=== PATIENT | male | born 1965 | race Asian ===

== ENCOUNTER 2020-08-23 08:03 | Outpatient (REF) | payer OTHER, SELFPAY ==
--- NOTE | 2020-08-23 | US_ITS ---
EXAMINATION: US COMPLETE ABDOMEN WITH LIVER ELASTOGRAPHY CLINICAL INFORMATION: Epigastric pain. COMPARISON: None. TECHNIQUE: Real-time imaging of the abdominal viscera. Noninvasive ultrasound liver fibrosis assessment is performed using Markie ElastPQ point quantification shear wave elastography (pSWE) with a 5 MHz transducer. Multiple elastography samples are obtained. FINDINGS: PANCREAS: The visualized pancreatic head and body are normal in appearance. The remainder of the pancreas is obscured from visualization by the overlying bowel gas. ABDOMINAL AORTA: The proximal, middle, and distal aortic segments are normal in caliber. Atheromatous changes are evident. INFERIOR VENA CAVA: Visualized portions are normal. LIVER: Increased hepatic echogenicity is noted diffusely, most consistent with steatosis. Liver is normal in size and contour. No focal lesion or intrahepatic biliary duct dilatation. The right lobe measures 14.6 in length. The left lobe measures 10.5 in length. Normal hepatopedal blood flow is noted. Shear wave elastography provides a median stiffness of 1.79 m/s (reference: normal median stiffness is 0.81 - 1.22 m/s). The IQR/median stiffness to assess sampling precision is 0.35 (reference: optimal IQR/median stiffness is under 0.3). GALLBLADDER: Normal. The gallbladder is physiologically distended without evidence of stones, sludge, polyps, wall thickening or pericholecystic fluid. COMMON BILE DUCT: Normal in caliber measuring 0.48 cm in diameter. RIGHT KIDNEY: Normal. No hydronephrosis. No renal calculi or focal parenchymal lesions. The kidney measures 11.5 cm in maximum dimension. LEFT KIDNEY: Normal. No hydronephrosis. No renal calculi or focal parenchymal lesions. The kidney measures 10.9 cm in maximum dimension. SPLEEN: Normal. The spleen measures 9.5 cm in maximum dimension. FREE FLUID: None. IMPRESSION: 1. Increased hepatic echogenicity, most consistent with steatosis. 2. Elastography: Although the liver elastography measurements are consistent with a moderate risk for clinically significant liver fibrosis (METAVIR Stage F2-F3), there is statistical variability of the sampling which decreases accuracy.
== END 2020-08-23 08:04 | disposition home or self-care (01) ==
LOC: HO.US 08:03
PROVIDERS: Visit Provider Internal Medicine Gastroenterology
DX: R10.13 Epigastric pain (principal)
CPT/HCPCS: 76705; 76981

== ENCOUNTER → 2020-09-13 14:18 | Outpatient (BNVA) | payer OTHER, SELFPAY | PROVIDERS: Visit Provider Urology | DX: E29.1 Testicular hypofunction (principal); N46.9 Male infertility, unspecified; N52.01 Erectile dysfunction due to arterial insufficiency; Z71.89 Other specified counseling | CPT/HCPCS: 99212 ==

== ENCOUNTER → 2020-11-01 14:49 | Outpatient (BNVA) | payer OTHER, SELFPAY | PROVIDERS: Visit Provider Urology | DX: Z76.89 Persons encountering health services in other specified circumstances (principal) ==

== ENCOUNTER 2020-11-15 07:06 | Day surgery (SDC) | payer OTHER, SELFPAY ==
[2020-11-06 12:35] VITALS: BMI 28.1
--- NOTE | 2020-11-13 11:02 | HO.ANESPROP2 ---
Documented by User: Elodia Rios 11/13/20 11:03 HPI - Anesthesia Eval Consult details Narrative: 55yo M for Upper Endoscopy and Colonoscopy [facility] Past Medical History Medical History Arthritis GERD (gastroesophageal reflux disease) Surgical History Surgical History H/O colonoscopy Hx of inguinal hernia repair Social History Social History Smoking Status: Never smoker Second Hand Smoke Exposure: No Use of substances other than those prescribed or required for medical reasons: No Advance Directives: No Advance Directives Information Provided: Yes Advance Directives on File: No Meds Allergies Allergy/AdvReac Type Severity Reaction Status Date / Time No Known Allergies Allergy Unverified 08/02/20 17:54 [No Known Allergies*] Exam Exam Date and Time: November 13, 2020 1102 Height,Weight and Vital Signs: Height 5 ft 10 in Weight 88.904 kg Assessment and Plan Assessment Anesthesia Assessment: Chart Reviewed Documented by User: Boo Alexander MD 11/15/20 08:52 [facility] Past Medical History Medical History Arthritis GERD (gastroesophageal reflux disease) Surgical History Surgical History H/O colonoscopy Hx of inguinal hernia repair Social History Social History Smoking Status: Never smoker Second Hand Smoke Exposure: No Use of substances other than those prescribed or required for medical reasons: No Advance Directives: No Advance Directives Information Provided: Yes Advance Directives on File: No Meds Allergies Allergy/AdvReac Type Severity Reaction Status Date / Time No Known Allergies Allergy Unverified 08/02/20 17:54 [No Known Allergies*] Exam Airway Mallampati Class: II TM Dist: >3cm Neck ROM: Full Loose/Missing/Broken Teeth: No Heart: RRR Lungs: NL Other: AO Assessment and Plan Assessment Anesthesia Assessment: Anesthesia Plan Discussed and Chart Reviewed Final Anesthetic Review NPO: Yes ASA Class: II Final Preanesthetic Review: No Changes in Pt Med Stat, Meds/Allgs Chart Reviewed, Consent Obtained/Reviewed and Anes Risks/Benef Reviewed Patient Risk: Low Procedure Risk: Low Anesthetic Plan Anesthetic Plan: MAC: Disposition: Standard PACU
[2020-11-14 08:43] VITALS: BMI 28.0
[2020-11-15 07:52] VITALS: BP 144/87; PULSE 72; RESP 18; TEMP 36.5; O2SAT 99
[2020-11-15] MEDS: Lactated Ringers 1,000 ML 100 ML IVCONT (08:02)
--- NOTE | 2020-11-15 08:39 | MHC.SHP ---
Pre-Procedural Eval Section B Chief Complaint: Rectal Bleeding, Epigastric Pain, Relevant Family History (Specify if Yes): No Relevant Social History: None Present Medications: see Short Stay Collaborative assessment Medical History: Significant History (Arthritis GERD (gastroesophageal reflux disease)) History of Previous Operations: Relevant previous surgery/procedure and date(s) (inguinal heria repair) Allergies: Allergies Allergy/AdvReac Type Severity Reaction Status Date / Time No Known Allergies Allergy Unverified 08/02/20 17:54 [No Known Allergies*] Review of Systems Sugical H&P ROS: Negative: Constitution, Cardiovascular, Respiratory, Neurological, Psychiatric, Hem-Onc, Allergic/Immunologic, Gastrointestinal, Genitourinary, Musculoskeletal, Endocrine and Eyes/Ears/Nose/Throat and Yes, Specify: Integumentary (redness groin) Exam Surgical H&P Exam: Normal: HEENT, Normal: Heart, Normal: Lungs, Normal: Extremities, Normal: Abdomen and Normal: Neurological and Significant Findings: Skin (redness groin) Plan Diagnosis/Plan: Unchanged I have reviewed the history and physical and performed a pertinent physical examination on my patient. No changes have occurred unless specified.
--- NOTE | 2020-11-15 08:40 | PM.OP ---
Brief Operative Note Date of Service: 11/15/20 Post-op diagnosis: same Procedure: Operative Information Procedure Description: EGD, Colonoscopy FLEXIBLE TRANSORAL UPPER GASTROINTESTINAL ENDOSCOPY AND COLONOSCOPY PROCEDURE NOTE UPPER ENDOSCOPY Consent: Indications for the procedure and potential complications of bleeding, perforation, reaction to medications and missed diagnosis were discussed with the patient and informed consent was obtained. Instrument: Olympus GIF H 190 J mid size upper endoscope Monitoring: Vital signs and clinical assessment, continuous EKG monitoring, Pulse oximetry, Carbon Dioxide monitoring and blood pressure monitoring were done throughout the procedure. Procedure: The patient was placed in the left lateral decubitis position and pre-procedure medications were administered and a bite block was placed. The endoscope was inserted into the mouth and advanced under direct vision to the third part of duodenum. A careful inspection was made as the upper endoscope was withdrawn including a retroflexed examination of the proximal stomach; Findings and interventions are described below. Findings: Larynx:normal Esophagus: GE junction at 40 cm, diaphragm hiatus at 40 cm, normal mucosa Stomach: streaky erythema at antrum. Biopsies were obtained. Grade 2 flap valve on retroflexed examination of the cardia. Duodenum: Normal bulb and descending duodenum, bx taken Intervention: Biopsies as noted above COLONOSCOPY Instrument: Olympus variable stiffness pediatric scope 190L Colonoscopy Monitoring: Vital signs and clinical assessment, continuous EKG monitoring, Pulse oximetry, Carbon Dioxide monitoring and blood pressure monitoring were done throughout the procedure. Colon withdrawal time was 10 minutes. Procedure: The patient was placed in the left lateral decubitis position and pre-procedure medications were administered. After a digital rectal examination of the ano-rectum, the video colonoscope was inserted into the rectum and advanced through the colon to the cecum/TI. The colonoscope was slowly withdrawn in a retrograde panoramic fashion and the colon mucosa was carefully examined including a retroflexed view of the rectum. Findings and interventions are described below. Procedure Difficulty:easy Findings: Terminal Ileum-normal Cecum:normal Ascending Colon: normal Transverse Colon -normal Descending Colon:normal Sigmoid Colon: normal Rectum: Retroflexion with small, slightly inflammed internal hemorrhoids, grade II, few small polyps 4-5 mm removed with forceps Anorectum - internal hemorrhoids seen at anal verge, no tear seen Colon preparation: [place] Bowel Preparation Scale Right colon; 3 Transverse colon: 3 Left colon; 3 (0 = Unprepared colon segment with mucosa not seen due to solid stool that cannot be cleared. 1 = Portion of mucosa of the colon segment seen, but other areas of the colon segment not well seen due to staining, residual stool and/or opaque liquid. 2 = Minor amount of residual staining, small fragments of stool and/or opaque liquid, but mucosa of colon segment seen well. 3 = Entire mucosa of colon segment seen well with no residual staining, small fragments of stool or opaque liquid) Impression and Post Procedure Diagnosis: Endoscopy Findings: gastritis Colonoscopy Findings: internal hemorrhoids polyps Plan: Await Pathology results Repeat Colonoscopy in 7-10 years or earlier if clinically indicated High fiber diet leaflet avoid straining at stool, epsom salts and sitz bath, anusol supps or cream try clotrimazole cream for groin rash and anal itching in case of tinea infection if sx persist then colorectal referral Above findings were reviewed with the patient and relevant handouts were provided if indicated. Surgeon: Tad Wu MD Anesthesia: MAC Estimated blood loss (mL): 0 Condition: stable Disposition: PACU
[2020-11-15 09:18] VITALS: BP 129/80; PULSE 77; RESP 16; TEMP 36.4; O2SAT 96
[2020-11-15 09:33] VITALS: BP 142/83; PULSE 83; RESP 19; TEMP 36.4; O2SAT 98
--- NOTE | 2020-11-15 10:41 | HO.POSTANES ---
Post Anesthesia Evaluation Post Anesthesia Evaluation Vital Signs: Vital Signs Temp Pulse Resp BP Pulse Ox 11/15/20 09:33 97.6 F 83 19 142/83 H 98 11/15/20 09:18 97.6 F 77 16 129/80 96 11/15/20 07:52 97.7 F 72 18 144/87 H 99 Anesthesia: Monitored Mental Status: Awake Pain Control: Satisfactory Nausea/Vomiting: None Hydration: Adequate Anesthesia-Related Issues: No Anes. Related Issues
== END 2020-11-15 09:57 | disposition home or self-care (01) ==
PROVIDERS: PCP Internal Medicine; Visit Provider Internal Medicine Gastroenterology
PROC: (CPT 45380; principal; 2020-11-15 08:30)
DX: K62.5 Hemorrhage of anus and rectum (principal); K62.1 Rectal polyp; K64.1 Second degree hemorrhoids; K29.50 Unspecified chronic gastritis without bleeding; K21.9 Gastro-esophageal reflux disease without esophagitis; K44.9 Diaphragmatic hernia without obstruction or gangrene; L30.9 Dermatitis, unspecified; Z79.899 Other long term (current) drug therapy
CPT/HCPCS: 45380; 43239; 82785; 86003; 88305; 88342

== ENCOUNTER → 2020-12-04 10:16 | Outpatient (BNVA) | payer OTHER, SELFPAY | PROVIDERS: PCP Internal Medicine; Visit Provider Orthopaedic Surgery | DX: M17.0 Bilateral primary osteoarthritis of knee (principal) | CPT/HCPCS: 20610; 99212; J1040 ==

== ENCOUNTER → 2020-12-05 10:15 | Outpatient (BNVA) | payer OTHER, SELFPAY | PROVIDERS: PCP Internal Medicine; Visit Provider Surgery | DX: K62.89 Other specified diseases of anus and rectum (principal) | CPT/HCPCS: 99202 ==

== ENCOUNTER → 2021-01-22 11:36 | Outpatient (BNVA) | payer OTHER, SELFPAY | PROVIDERS: PCP Internal Medicine; Visit Provider Internal Medicine Gastroenterology ==

== ENCOUNTER → 2021-04-24 11:17 | Outpatient (BNVA) | payer OTHER, SELFPAY | PROVIDERS: PCP Internal Medicine; Visit Provider Orthopaedic Surgery | DX: M17.0 Bilateral primary osteoarthritis of knee (principal) | CPT/HCPCS: 20610; 99212; J1040 ==

== ENCOUNTER → 2021-05-07 09:51 | Outpatient (BNVA) | payer OTHER, SELFPAY | PROVIDERS: Visit Provider Internal Medicine Gastroenterology ==

== ENCOUNTER → 2021-05-21 14:30 | Outpatient (BNVA) | payer OTHER, SELFPAY | PROVIDERS: PCP Internal Medicine; Visit Provider Urology | DX: E29.1 Testicular hypofunction (principal); N52.9 Male erectile dysfunction, unspecified; R68.82 Decreased libido; R53.83 Other fatigue | CPT/HCPCS: 99212 ==

== ENCOUNTER → 2021-08-15 12:19 | Outpatient (BNVA) | payer OTHER, SELFPAY | PROVIDERS: PCP Internal Medicine; Visit Provider Orthopaedic Surgery | DX: M17.0 Bilateral primary osteoarthritis of knee (principal) | CPT/HCPCS: 20610; 99212; J1100 ==

== ENCOUNTER → 2021-09-09 13:10 | Outpatient (BNVA) | payer OTHER, SELFPAY | PROVIDERS: PCP Internal Medicine; Visit Provider Orthopaedic Surgery | DX: M17.0 Bilateral primary osteoarthritis of knee (principal) | CPT/HCPCS: 99212 ==

== ENCOUNTER → 2021-10-21 08:08 | Outpatient (BNVA) | payer OTHER, SELFPAY | PROVIDERS: PCP Internal Medicine; Visit Provider Anesthesiology | DX: M17.10 Unilateral primary osteoarthritis, unspecified knee (principal); G89.4 Chronic pain syndrome | CPT/HCPCS: 99202 ==

== ENCOUNTER → 2021-10-29 08:47 | Outpatient (BNVA) | payer OTHER, SELFPAY | PROVIDERS: PCP Internal Medicine; Visit Provider Urology | DX: N46.9 Male infertility, unspecified (principal); F52.4 Premature ejaculation | CPT/HCPCS: 99212 ==

== ENCOUNTER → 2022-01-01 15:55 | Outpatient (BNVA) | payer OTHER, SELFPAY | PROVIDERS: PCP Internal Medicine; Visit Provider Anesthesiology | DX: G89.4 Chronic pain syndrome (principal); M17.0 Bilateral primary osteoarthritis of knee | CPT/HCPCS: 99212 ==

== ENCOUNTER 2022-01-07 05:59 | Outpatient (REF) | payer OTHER, SELFPAY ==
--- NOTE | ~2022-01-07 | FL_ITS ---
EXAMINATION: XR FLUOROSCOPY WITH IMAGES CLINICAL INFORMATION: M25.561 - Pain in right knee COMPARISON: Radiographs bilateral knees 06/28/2019 TECHNIQUE: Fluoroscopy performed by Dr. Patricio Beaver. Fluoroscopy time: 0.1 minutes DAP: 0.343 Gycm2 Images: 4 FINDINGS: There is are bilateral spinal needles with tip residing adjacent to medial side bilateral proximal tibia at mid depth. There are degenerative changes medial knee joint compartments with joint narrowing and spurring. FL/FL guidance in treatment room IMPRESSION: Fluoroscopy for pain management procedures.
== END 2022-01-07 06:00 | disposition home or self-care (01) ==
LOC: HO.RADIR 05:59
PROVIDERS: Visit Provider Anesthesiology
DX: M17.10 Unilateral primary osteoarthritis, unspecified knee (principal); G89.4 Chronic pain syndrome
CPT/HCPCS: 64450; J3300; Q9967

== ENCOUNTER → 2022-01-10 09:07 | Outpatient (BNVA) | payer OTHER, SELFPAY | PROVIDERS: PCP Internal Medicine; Visit Provider Urology ==

== ENCOUNTER → 2022-01-13 11:47 | Outpatient (BNVA) | payer OTHER, SELFPAY | PROVIDERS: PCP Internal Medicine; Visit Provider Anesthesiology | DX: M17.0 Bilateral primary osteoarthritis of knee (principal); G89.4 Chronic pain syndrome | CPT/HCPCS: 99212 ==

== ENCOUNTER 2022-03-28 16:04 | Outpatient (REF) | payer OTHER, SELFPAY ==
--- NOTE | ~2022-03-28 | US_ITS ---
EXAMINATION: US SCROTUM CLINICAL INFORMATION: Scrotal pain. COMPARISON: Scrotal ultrasound 10/11/2018. TECHNIQUE: A sonogram of the scrotum was performed assessing uriarte-scale appearance and color Doppler flow. Spectral Doppler analysis of the arterial and venous flow were performed in the testes bilaterally. FINDINGS: RIGHT: Right testicle measures 3.6 x 1.7 x 2.9 cm, volume 9.3 mL. No focal testicular parenchymal lesions are visualized. Spectral Doppler analysis of the arterial and venous flow is normal in the right testis. Right epididymal head is normal in size. No right hydrocele is seen. There is a small right varicocele. Right epididymal Doppler flow is normal. LEFT: Left testicle measures 3.8 x 1.4 x 2.2 cm, volume 6.1 mL. No focal testicular parenchymal lesions are visualized. Spectral Doppler analysis of the arterial and venous flow is normal in the left testis. Left epididymal head is normal in size. No left hydrocele is seen. There is a small left varicocele. Left epididymal Doppler flow is normal. US/US scrotum IMPRESSION: Small bilateral varicoceles.
== END 2022-03-28 16:05 | disposition home or self-care (01) ==
LOC: HO.US 16:04
PROVIDERS: Visit Provider Internal Medicine Gastroenterology
DX: N50.82 Scrotal pain (principal)
CPT/HCPCS: 76870

== ENCOUNTER 2022-04-23 07:22 | Outpatient (REF) | payer OTHER, SELFPAY | END 2022-04-23 07:23 | disposition home or self-care (01) | LOC: HO.RADIR 07:22 | PROVIDERS: Visit Provider Internal Medicine | DX: M17.11 Unilateral primary osteoarthritis, right knee (principal); M25.561 Pain in right knee; I87.2 Venous insufficiency (chronic) (peripheral); G89.4 Chronic pain syndrome | CPT/HCPCS: 64447; J1100 ==

== ENCOUNTER → 2022-04-28 10:45 | Outpatient (BNVA) | payer OTHER, SELFPAY | PROVIDERS: Visit Provider Internal Medicine | DX: M54.50 Low back pain, unspecified (principal); M17.0 Bilateral primary osteoarthritis of knee; I87.2 Venous insufficiency (chronic) (peripheral) | CPT/HCPCS: 20610; 99212; J2795; J3300 ==

== ENCOUNTER 2022-04-30 14:03 | Day surgery (SDC) | payer OTHER, SELFPAY ==
--- NOTE | 2022-04-29 12:11 | HO.ANESPROP2 ---
Documented by User: Elodia Rios NP 04/29/22 12:12 HPI - Anesthesia Eval Consult details Narrative: 57yo M for Upper Endoscopy [facility] Active Problems Active Problems: All Active Problems (Updated 04/28/22 @ 11:17 by Boo Alexander MD) Low back pain (Acute) Venous stasis dermatitis of both lower extremities (Acute) Scrotal pain (Acute) Screening for diabetes mellitus (Acute) Dyslipidemia (Acute) Right leg pain (Acute) Left leg pain (Acute) Right knee pain (Acute) Premature ejaculation, acquired, generalized, moderate (Acute) Chronic pain syndrome (Acute) Knee osteoarthritis (Acute) Anal pain (Acute) Primary osteoarthritis of knees, bilateral (Acute) Rectal or anal pain (Acute) Erectile dysfunction due to arterial insufficiency (Acute) Hypogonadism in male (Acute) Male infertility (Acute) Past Medical History Medical History Arthritis Dyslipidemia GERD (gastroesophageal reflux disease) Family History Family History Mother No problems noted. Father No problems noted. Surgical History Surgical History (Updated 04/30/22 @ 14:56 by Veronique Whitney MD) H/O colonoscopy Hx of esophagogastroduodenoscopy Hx of inguinal hernia repair Social History Social History Household Members: Spouse and Children Housing: House Alcohol intake: current Alcohol intake frequency: does not drink Patient Tobacco Use Status: Former Tobacco user e-Cigarette/Vaping Use: Never Used Second Hand Smoke Exposure: No Use of substances other than those prescribed or required for medical reasons: No Are you DNR?: No Advance Directives: No Advance Directives Information Provided: Yes Recently lost weight without trying: No Nutrition Risks: No Nutritional Risk service: No Current occupational status: unemployed Cognitive needs: No Hearing needs: No Vision needs: No Meds Allergies Allergy/AdvReac Type Severity Reaction Status Date / Time No Known Allergies Allergy Verified 04/28/22 10:50 [No Known Allergies*] Home Medications Medication Instructions Recorded Confirmed Last Taken Type fluorometholone 0.25 % eye drp ophthalmic (eye) 10/29/21 04/28/22 Unknown History drops,suspension ([employer]ML Forte) Exam Exam Date and Time: April 29, 2022 1211 Assessment and Plan Assessment Anesthesia Assessment: Chart Reviewed Documented by User: Veronique Whitney MD 04/30/22 15:08 [facility] Past Medical History Medical History Arthritis Dyslipidemia GERD (gastroesophageal reflux disease) Family History Family History Mother No problems noted. Father No problems noted. Family history of problems with anesthesia: No Surgical History Surgical History (Updated 04/30/22 @ 14:56 by Veronique Whitney MD) H/O colonoscopy Hx of esophagogastroduodenoscopy Hx of inguinal hernia repair History of Problems with Anesthesia: No Social History Social History Household Members: Spouse and Children Housing: House Alcohol intake: current Alcohol intake frequency: does not drink Patient Tobacco Use Status: Former Tobacco user e-Cigarette/Vaping Use: Never Used Second Hand Smoke Exposure: No Use of substances other than those prescribed or required for medical reasons: No Are you DNR?: No Advance Directives: No Advance Directives Information Provided: Yes Recently lost weight without trying: No Nutrition Risks: No Nutritional Risk service: No Current occupational status: unemployed Cognitive needs: No Hearing needs: No Vision needs: No Meds Allergies Allergy/AdvReac Type Severity Reaction Status Date / Time No Known Allergies Allergy Verified 04/28/22 10:50 [No Known Allergies*] Home Medications Medication Instructions Recorded Confirmed Last Taken Type fluorometholone 0.25 % eye drp ophthalmic (eye) 10/29/21 04/28/22 Unknown History drops,suspension ([employer] Forte) Exam Height,Weight and Vital Signs: Height 5 ft 10 in Weight 105.233 kg Vital Signs Temp Pulse Resp BP Pulse Ox O2 Del Method 06/15/22 14:16 98.3 F 75 16 145/85 H 97 Room Air Airway Mallampati Class: III TM Dist: >3cm Neck ROM: Full Loose/Missing/Broken Teeth: Yes (Loose bottom left front) Heart: RRR Lungs: CTAB Assessment and Plan Final Anesthetic Review Family History of Problems with Anesthesia: No History of Problems with Anesthesia: No NPO: Yes ASA Class: II Final Preanesthetic Review: No Changes in Pt Med Stat, Meds/Allgs Chart Reviewed, Consent Obtained/Reviewed and Anes Risks/Benef Reviewed Patient Risk: Low Procedure Risk: Low Assessment/Block/Sedation in SS: Assess/Block/Sedation-SS Anesthetic Plan Anesthetic Plan: MAC: Disposition: Standard PACU
[2022-04-30 14:12] VITALS: BMI 33.3
[2022-04-30 14:16] VITALS: BP 145/85; PULSE 75; RESP 16; TEMP 36.8; O2SAT 97
[2022-04-30] MEDS: Lactated Ringers 1,000 ML 100 ML IVCONT (14:38)
--- NOTE | 2022-04-30 14:57 | MHC.SHP ---
Pre-Procedural Eval Section A Date of Service: 04/30/22 Section B Chief Complaint: epigastric discomfort and abdominal distention Details of Present Illness: worsening distention and discomfort, no fevers or dysphagia Relevant Family History (Specify if Yes): No Relevant Social History: None Present Medications: see Short Stay Collaborative assessment Medical History: Significant History (Arthritis Dyslipidemia GERD (gastroesophageal reflux disease)) History of Previous Operations: Relevant previous surgery/procedure and date(s) (inguinal hernia repair) Allergies: Allergies Allergy/AdvReac Type Severity Reaction Status Date / Time No Known Allergies Allergy Verified 04/28/22 10:50 [No Known Allergies*] Review of Systems Sugical H&P ROS: Negative: Constitution, Cardiovascular, Respiratory, Neurological, Psychiatric, Hem-Onc, Allergic/Immunologic, Gastrointestinal, Genitourinary, Musculoskeletal, Integumentary, Endocrine and Eyes/Ears/Nose/Throat Exam Surgical H&P Exam: Normal: HEENT, Normal: Heart, Normal: Lungs, Normal: Extremities, Normal: Abdomen, Normal: Skin and Normal: Neurological Plan Diagnosis/Plan: Unchanged I have reviewed the history and physical and performed a pertinent physical examination on my patient. No changes have occurred unless specified.
--- NOTE | 2022-04-30 15:27 | P.BOP_ITS ---
Brief Operative Note Date of Service: 04/30/22 Pre-op diagnosis: epigastric discomfort and abdominal distention Post-op diagnosis: same Procedure: see op note Surgeon: Tad Wu MD Anesthesia: MAC Was an Boiler Operator Helper used for this Procedure?: No Estimated blood loss (mL): 0 Condition: stable Disposition: PACU
--- NOTE | 2022-04-30 15:28 | W.PM.OPN ---
Operative Note Operative Note Date of Service: 04/30/22 Narrative: Procedure Description: EGD Indication: epigastric discomfort and abdominal distention, regurgitation Anesthesia: MAC FLEXIBLE TRANSORAL UPPER GASTROINTESTINAL ENDOSCOPY UPPER ENDOSCOPY Consent: Indications for the procedure and potential complications of bleeding, perforation, reaction to medications and missed diagnosis were discussed with the patient and informed consent was obtained. Instrument: Olympus GIF H 190 J mid size upper endoscope Monitoring: Vital signs and clinical assessment, continuous EKG monitoring, Pulse oximetry, Carbon Dioxide monitoring and blood pressure monitoring were done throughout the procedure. Procedure: The patient was placed in the left lateral decubitis position and pre-procedure medications were administered and a bite block was placed. The endoscope was inserted into the mouth and advanced under direct vision to the third part of duodenum. A careful inspection was made as the upper endoscope was withdrawn including a retroflexed examination of the proximal stomach; Findings and interventions are described below. Findings: Larynx:normal Esophagus: GE junction at 38 cm, diaphragm hiatus at 38 cm, bx taken from distal and proximal esophagus in separate jars, Balloon dilation done to 20 mm at lower esophagus and upper esophagus. Stomach: Patchy gastric erythema. Biopsies were obtained. Grade 2 flap valve on retroflexed examination of the cardia. Pylorus was dilated to 20 mm with some heme noted. Duodenum: Normal bulb and descending duodenum, Intervention: Biopsies as noted above, balloon dilation Impression/Findings: gastritis pyloric dilation PLAN: trial of rifaximin see if helps if sx persist then GES
[2022-04-30 15:32] VITALS: BP 129/76; PULSE 76; RESP 12; TEMP 36.1; O2SAT 97
[2022-04-30 15:47] VITALS: BP 146/87; PULSE 74; RESP 16; O2SAT 98
[2022-04-30 16:02] VITALS: BP 154/99; PULSE 73; RESP 16; TEMP 37.1; O2SAT 98
== END 2022-04-30 16:22 | disposition home or self-care (01) ==
PROVIDERS: Visit Provider Internal Medicine Gastroenterology
PROC: 0DJ08ZZ Inspection of Upper Intestinal Tract, Via Natural or Artificial Opening Endoscopic (ICD-10-PCS; CPT 43235; principal; 2022-04-30 13:50)
DX: R10.13 Epigastric pain (principal); K29.50 Unspecified chronic gastritis without bleeding; R14.0 Abdominal distension (gaseous); K21.9 Gastro-esophageal reflux disease without esophagitis; K44.9 Diaphragmatic hernia without obstruction or gangrene; E78.5 Hyperlipidemia, unspecified; M19.90 Unspecified osteoarthritis, unspecified site; Z87.891 Personal history of nicotine dependence
CPT/HCPCS: 43245; 43239; 43249; 88305; 88342; C1726; J3010

== ENCOUNTER 2022-06-02 18:09 | Outpatient (REF) | payer OTHER, SELFPAY | END 2022-06-02 18:10 | disposition home or self-care (01) | LOC: HO.MRI 18:09 | PROVIDERS: Visit Provider Internal Medicine | DX: Z13.89 Encounter for screening for other disorder (principal) ==

== ENCOUNTER 2022-06-12 18:18 | Outpatient (REF) | payer OTHER, SELFPAY | END 2022-06-12 18:19 | disposition home or self-care (01) | LOC: HO.MRI 18:18 | PROVIDERS: Visit Provider Internal Medicine | DX: Z13.89 Encounter for screening for other disorder (principal) ==

== ENCOUNTER 2022-06-25 15:35 | Day surgery (SDC) | payer OTHER, SELFPAY ==
[2022-06-25 16:02] VITALS: BMI 33.0
[2022-06-25 16:04] VITALS: BP 146/96; PULSE 87; RESP 16; TEMP 37.3; O2SAT 96
--- NOTE | 2022-06-25 18:09 | PC.NURSE ---
surgeon dr. whitfield and device printing sales representative state no contraindication of patient driving self home following procedure as local and no device risk post op
[2022-06-25 19:46] VITALS: BP 153/91; PULSE 79; RESP 20; TEMP 36.7; O2SAT 97
--- NOTE | 2022-06-25 19:56 | P.OP_ITS ---
Operative Note Operative Note Date of Service: 06/25/22 Narrative: Peripheral Nerve Stimulation Temporary Lead Placement, Ultrasound-Guided, Saphenous Nerve, Right ? After the risks, benefits and alternatives were discussed with the patient and informed consentwas obtained, patient was placed in the supine position and padded to foster comfort. Appropriate skin and bony landmarks were identified, and pertinent vascular structures were located. The skin overlying the needle entry site was prepped and draped in sterile fashion. Ultrasound was used to identify the femoral artery, the femoral vein and the saphenous nerve. After identifying and marking the intended target along the course of the Saphenous nerve, the skin around the planned entry point and the subcutaneous tissues were injected with local anesthetic. An introducer needle and stimulating probe were assembled, inserted and advanced along the intended course of the saphenous; nerve, taking care to maintain the proper depth of insertion as the introducer was advanced under ultrasound guidance. The introducer needle was delivered to a location in proximity to the nerve taking care not to puncture the femoral artery or the vein. Multiple stimulation parameters were used to deliver stimulation to the saphenous nerve in concert with stimulating at multiple positions around the nerve. Nerve target acquisition was confirmed noting generation of sensory and mild motor effects (paresthesia, muscle tension, etc) in the medial knee, leg and ankle; corresponding to the distribution of the saphenous nerve. Various electrical parameter combinations were tested, and the lead location was adjusted (physic ally relocated under ultrasound guidance) until the patient indicated medial knee paresthesia and tension overlapping the distribution of the patient?s typical region of pain. The stimulating probe was removed from the introducer and a percutaneous lead was guided through the needle and delivered to a location in similar proximity to the nerve. Final location was verified with electrical stimulation and documented. The introducer needle was removed, and the exposed end of the percutaneous lead was attached to an external stimulator unit. Various electrical parameter combinations were again tested until the patient indicated paresthesia and muscle tension overlapping the distribution of the patient?s typical region of pain. After confirming that lead impedance was in the normal range, the external unit was detached, the needle was removed, and the lead was anchored at the skin. The lead was threaded into the connector block and electrical continuity and desired patient response was confirmed. The connector block was attached to the external stimulator unit. The site was covered with a sterile occlusive dressing. A final ultrasound image was taken to document final placement. The patient was observed for stability of vital signs and comfort. Left adductor canal saphenous nerve block, ultrasound-guided Using ultrasound, the appropriate landmarks including the femoral artery and saphenous nerve were identified. The skin overlying the target was anesthetized with 0.5% lidocaine. A 21 gauge 80 mm echostim needle was advanced under sonographic guidance to the adductor canal. Aspiration was negative for heme and synovial fluid. 15 cc of lidocaine 1% was injected around the saphenous nerve. The needles were removed, skin cleansed and a sterile bandage was applied. The patient tolerated the procedure well and no complications were encountered. Foll owing the procedure the patient's vital signs and knee strength were stable. The patient was discharged home in good condition with post-procedural instructions. Time Out: Immediately prior to the procedure, the following was verbally confirmed that there is a signed consent form and that the correct patient, planned procedure, site and side are consistent with documentation and that necessary equipment and/or blood products are available prior to the start of the case. Complications: none EBL: <1 cc
--- NOTE | 2022-06-25 19:56 | P.BOP_ITS ---
Brief Operative Note Date of Service: 06/25/22 Pre-op diagnosis: Bilateral knee pain secondary to osteoarthritis Post-op diagnosis: same Procedure: Right knee saphenous nerve peripheral nerve stimulator placement; left knee diagnostic saphenous nerve block at the level of the adductor canal Implants: Sprint PNS system on the right side Surgeon: Boo Alexander MD Anesthesia: local Was an Health Program Specialist used for this Procedure?: No Estimated blood loss (mL): 2 Pathology: none sent Condition: stable Disposition: same day
--- NOTE | 2022-06-25 19:56 | MHC.SHP ---
Pre-Procedural Eval Section A Date of Service: 06/25/22 The patient is an INPATIENT: No Changes since office visit: Yes Patient answered all questions The History & Physical has been completed within 30 days and I have reviewed it.: No Section B Chief Complaint: Bilateral primary osteoarthritis of knee Relevant Family History (Specify if Yes): No Present Medications: see Short Stay Collaborative assessment Medical History: Significant History (Bilateral knee Osteoarthritis ) History of Previous Operations: No relevant previous surgery Allergies: Allergies Allergy/AdvReac Type Severity Reaction Status Date / Time No Known Allergies Allergy Verified 04/28/22 10:50 [No Known Allergies*] Review of Systems Sugical H&P ROS: Negative: Constitution, Cardiovascular and Respiratory Exam Surgical H&P Exam: Normal: HEENT, Normal: Heart and Normal: Lungs Plan Diagnosis/Plan: Unchanged I have reviewed the history and physical and performed a pertinent physical examination on my patient. No changes have occurred unless specified.
--- NOTE | 2022-06-25 20:08 | PC.NURSE ---
PATIENT OOB DRESSED AT BEDSIDE NO COMPLAINTS OF NUMBNESS TINGLING STEADY ON FEET. ABLE AMBULATE
== END 2022-06-25 20:09 | disposition home or self-care (01) ==
PROVIDERS: Visit Provider Internal Medicine
PROC: (CPT 64555; principal; 2022-06-25 16:40)
PROC: (CPT 64555; 2022-06-25 16:40)
DX: M17.0 Bilateral primary osteoarthritis of knee (principal); M25.561 Pain in right knee; G89.4 Chronic pain syndrome; I87.2 Venous insufficiency (chronic) (peripheral); M54.50 Low back pain, unspecified; K21.9 Gastro-esophageal reflux disease without esophagitis; Z79.899 Other long term (current) drug therapy; Z79.1 Long term (current) use of non-steroidal anti-inflammatories (NSAID); Z87.891 Personal history of nicotine dependence
CPT/HCPCS: 64555; C1778; J2795

== ENCOUNTER 2022-07-02 08:05 | Outpatient (REF) | payer OTHER, SELFPAY ==
--- NOTE | ~2022-07-02 | US_ITS ---
EXAMINATION: US LOWER EXTREMITY VENOUS (REFLUX EXAM), BILATERAL CLINICAL INDICATION: This is a 57-year-old male with venous insufficiency and varicose veins. COMPARISON: None. TECHNIQUE: Color flow triplex imaging and compression Doppler was performed to evaluate both the deep and the superficial systems bilaterally. To evaluate the superficial system, the examination was performed in the upright position. Color-flow Doppler ultrasound and compression ultrasound were utilized. In addition, maneuvers were utilized to demonstrate reflux. FINDINGS: 1. DEEP VENOUS ULTRASOUND OF THE RIGHT LOWER EXTREMITY: Common Femoral Vein: Compressible, normal respiratory variation and augmented flow. Femoral vein: Compressible, normal color flow and augmentation. Popliteal Vein: Compressible, normal augmentation. Deep Reflux: There is no evidence of reflux in the deep system in either the common femoral vein or the popliteal vein. There is no evidence of a Ayoub's cyst. 2. SUPERFICIAL ULTRASOUND WITH DOPPLER OF RIGHT LOWER EXTREMITY: GREAT SAPHENOUS VEIN: Saphenofemoral Junction: 0.9 cm. There is no reflux. Proximal thigh: 0.6 cm. The reflux time is 2204 ms. Mid Thigh: 0.5 cm. The reflux time is 3344 ms. Above Knee: 0.5 cm. The reflux time is 3080 ms. Below Knee: 0.4 cm. There is no reflux. Mid Calf: 0.3 cm. There is no reflux to Ankle: 0.3 cm. There is no reflux. GSV REFLUX: There is reflux beginning in the proximal thigh and extending to the knee. DUPLICATED GREAT SAPHENOUS VEIN: There is a 0.3 cm duplicated lateral great saphenous vein without reflux. SMALL SAPHENOUS VEIN: Proximal: 0.2 cm Distal: 0.2 cm SSV REFLUX: No evidence of reflux. VEIN OF GIACOMINI: None Imaged. 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 VARICOSITIES: There are 0.3 cm and 0.5 cm varicose veins with greater than 2 seconds of reflux. 3. DEEP VENOUS ULTRASOUND OF THE LEFT LOWER EXTREMITY: Common Femoral Vein: Compressible, normal respiratory variation and augmented flow. Femoral Vein: Compressible, normal color flow and augmentation. Popliteal Vein: Compressible, normal augmentation. Deep Reflux: There is no evidence of reflux in the deep system in either the common femoral vein or the popliteal vein. There is no evidence of a Ayoub's cyst. 4. SUPERFICIAL ULTRASOUND WITH DOPPLER OF LEFT LOWER EXTREMITY: GREAT SAPHENOUS VEIN: Saphenofemoral Junction: 1.2 cm. There is no reflux. There is no reflux in the proximal thigh. Mid Thigh: 0.5 cm. The reflux time is greater than 2 seconds. Above Knee: 0.5 cm. The reflux time is greater than 2 seconds. Below Knee: 0.3 cm. There is no reflux. There is no reflux below this level. Mid Calf: 0.3 cm Ankle: 0.3 cm GSV REFLUX: There is isolated reflux in the mid thigh and above the knee. DUPLICATED GREAT SAPHENOUS VEIN: None SMALL SAPHENOUS VEIN: Proximal: 0.1 cm Distal: 0.1 cm SSV REFLUX: No evidence of reflux. VEIN OF GIACOMINI: None Imaged. PERFORATORS: There are 0.3 cm perforators without reflux. VARICOSITIES: There are 0.6 cm distal thigh and knee varicose veins with greater than 2 seconds of reflux. US/US venous duplex LE BI IMPRESSION: 1. There is a patent right great saphenous vein with reflux beginning in the proximal thigh but not present at the junction as noted. 2. There is a patent right small saphenous vein without reflux. 3. There are right leg varicose veins as described. 4. Of note is a right thigh pain management device. 5. There is a patent left great saphenous vein with reflux beginning in the mid thigh to above the knee. 6. There is a patent left small saphenous vein without reflux. 7. There are left leg varicose veins as noted with greater than 2 seconds of reflux.
== END 2022-07-02 08:06 | disposition home or self-care (01) ==
LOC: HO.US 08:05
PROVIDERS: Visit Provider Internal Medicine
DX: I87.2 Venous insufficiency (chronic) (peripheral) (principal)
CPT/HCPCS: 93970

== ENCOUNTER → 2022-07-07 08:04 | Outpatient (BNVA) | payer OTHER, SELFPAY | PROVIDERS: Visit Provider Internal Medicine | DX: M25.561 Pain in right knee (principal); M79.604 Pain in right leg; M54.50 Low back pain, unspecified; R20.2 Paresthesia of skin; I87.2 Venous insufficiency (chronic) (peripheral); Z79.899 Other long term (current) drug therapy | CPT/HCPCS: 99212 ==

== ENCOUNTER → 2022-07-31 14:57 | Outpatient (BNVA) | payer OTHER, SELFPAY | PROVIDERS: PCP Internal Medicine; Visit Provider Surgery Vascular Surgery | DX: I83.11 Varicose veins of right lower extremity with inflammation (principal) | CPT/HCPCS: 99202 ==

== ENCOUNTER → 2022-08-14 09:11 | Outpatient (REF) | payer OTHER, SELFPAY ==
--- NOTE | 2022-08-14 09:13 | CA_ITS ---
Acquisition Time: 2022-08-14 09:23:33 Total Exercise Time: 00:06:46 Test Indications: CP Medications: SEE CHART Protocol: TREVOR Max HR: 157 BPM 96% of Pred: 163 BPM Max BP: 226/096 mmHG Max Work Load: 8.1 METS Exercise stress test with exercise 6 min 46 sec of Trevor protocol, with moderate sob, no chest discomfort, without arrythmia, with baseline BP 152/88 and exaggerated response with exercise up to 220/110 with exercise, without EKG changes meeting criteria for ischemia. In recovery his breathing normalized and BP returned to 156/90. Test reviewed with Dr Raymundo Referred By: Carlos Raymundo Overread By: CHARLY HICKEY
== END ==
LOC: HO.CARD 09:11
PROVIDERS: Visit Provider Internal Medicine Cardiovascular Disease
DX: R07.9 Chest pain, unspecified (principal)
CPT/HCPCS: 93017

== ENCOUNTER → 2022-08-15 10:37 | Outpatient (BNVA) | payer OTHER, SELFPAY | PROVIDERS: PCP Internal Medicine; Visit Provider Internal Medicine | DX: M17.10 Unilateral primary osteoarthritis, unspecified knee (principal); M54.50 Low back pain, unspecified; M79.604 Pain in right leg; M79.605 Pain in left leg | CPT/HCPCS: 99212 ==

== ENCOUNTER 2022-09-22 09:12 | Outpatient (REF) | payer OTHER, SELFPAY ==
[2022-09-22 10:44] LABS: Anion Gap 18 (12-20); Aspartate Amino Transferase 29 U/L (5-37); Bilirubin Total 0.5 mg/dL (0.0-1.0); Blood Urea Nitrogen 15 mg/dL (9-16); Calcium 9.4 mg/dL (8.4-10.2); Carbon Dioxide 24 mmol/L (22-29); Chloride 102 mmol/L (96-108); Estimated Glomerular Filt Rate > 60; Glucose Fasting 149 mg/dL (60-99); Potassium 4.7 mmol/L (3.3-5.1); Sodium 139 mmol/L (135-145)
[2022-09-22 10:45] LABS: Alanine Aminotransferase 43 U/L (0-40); Albumin Level 4.5 g/dL (3.5-5.0); Alkaline Phosphatase 144 U/L (39-117); Cholesterol 256 mg/dL; HDL Cholesterol 39 mg/dL; Total Protein 7.6 g/dL (6.5-8.0); Triglycerides 518 mg/dL
== END 2022-09-22 09:13 | disposition home or self-care (01) ==
LOC: HO.LAB 09:12
PROVIDERS: PCP Internal Medicine; Visit Provider Nurse Practitioner Family
DX: Z13.1 Encounter for screening for diabetes mellitus (principal); E78.5 Hyperlipidemia, unspecified
CPT/HCPCS: 36415; 80053; 80061

== ENCOUNTER 2022-09-27 08:11 | Outpatient (REF) | payer OTHER, SELFPAY ==
--- NOTE | ~2022-09-27 | XR_ITS ---
EXAMINATION: XR KNEES, STANDING AP XR KNEE, RIGHT XR LOWER LEG, RIGHT XR LOWER LEG, LEFT CLINICAL INFORMATION: Bilateral leg pain. Osteoarthritis COMPARISON: Bilateral knee radiographs 06/28/2019 TECHNIQUE: The knees are imaged in the following views: Bilateral standing AP, bilateral lateral views, right axial patella. The lower legs are imaged in bilateral AP and lateral views. FINDINGS: Right knee and right lower leg: No fracture, dislocation, destructive process. There is mild narrowing medial knee joint compartment and mild narrowing patellofemoral joint. No erosive change or definite chondrocalcinosis. Mild sharpening tibial spine. There is small suprapatellar effusion with mild thickening of the suprapatellar bursa. Axial view patella shows no lateralization or tilting. The right lower leg shows no acute or healing fracture or dislocation or destructive process. There is a moderate posterior and borderline plantar calcaneal spur. Left knee and left lower leg: No fracture, dislocation, destructive process. There is mild narrowing medial knee joint compartment and mild sharpening tibial spine. No erosive change or definite chondrocalcinosis. There is possible trace fluid suprapatellar bursa. No significant effusion. Left lower leg shows no acute or healing fracture or dislocation or destructive process. There is a small to moderate posterior calcaneal spur. XR/XR knee standing BI IMPRESSION: Right: -Mild narrowing medial knee joint compartment and patellofemoral joint. -Small suprapatellar effusion. -Calcaneal spurs. Left: -Mild narrowing medial knee joint compartment. -Suspect trace effusion. -Posterior calcaneal spur.
--- NOTE | ~2022-09-27 | XR_ITS ---
EXAMINATION: XR KNEES, STANDING AP XR KNEE, RIGHT XR LOWER LEG, RIGHT XR LOWER LEG, LEFT CLINICAL INFORMATION: Bilateral leg pain. Osteoarthritis COMPARISON: Bilateral knee radiographs 06/28/2019 TECHNIQUE: The knees are imaged in the following views: Bilateral standing AP, bilateral lateral views, right axial patella. The lower legs are imaged in bilateral AP and lateral views. FINDINGS: Right knee and right lower leg: No fracture, dislocation, destructive process. There is mild narrowing medial knee joint compartment and mild narrowing patellofemoral joint. No erosive change or definite chondrocalcinosis. Mild sharpening tibial spine. There is small suprapatellar effusion with mild thickening of the suprapatellar bursa. Axial view patella shows no lateralization or tilting. The right lower leg shows no acute or healing fracture or dislocation or destructive process. There is a moderate posterior and borderline plantar calcaneal spur. Left knee and left lower leg: No fracture, dislocation, destructive process. There is mild narrowing medial knee joint compartment and mild sharpening tibial spine. No erosive change or definite chondrocalcinosis. There is possible trace fluid suprapatellar bursa. No significant effusion. Left lower leg shows no acute or healing fracture or dislocation or destructive process. There is a small to moderate posterior calcaneal spur. XR/XR knee RT 2V IMPRESSION: Right: -Mild narrowing medial knee joint compartment and patellofemoral joint. -Small suprapatellar effusion. -Calcaneal spurs. Left: -Mild narrowing medial knee joint compartment. -Suspect trace effusion. -Posterior calcaneal spur.
--- NOTE | ~2022-09-27 | XR_ITS ---
EXAMINATION: XR KNEES, STANDING AP XR KNEE, RIGHT XR LOWER LEG, RIGHT XR LOWER LEG, LEFT CLINICAL INFORMATION: Bilateral leg pain. Osteoarthritis COMPARISON: Bilateral knee radiographs 06/28/2019 TECHNIQUE: The knees are imaged in the following views: Bilateral standing AP, bilateral lateral views, right axial patella. The lower legs are imaged in bilateral AP and lateral views. FINDINGS: Right knee and right lower leg: No fracture, dislocation, destructive process. There is mild narrowing medial knee joint compartment and mild narrowing patellofemoral joint. No erosive change or definite chondrocalcinosis. Mild sharpening tibial spine. There is small suprapatellar effusion with mild thickening of the suprapatellar bursa. Axial view patella shows no lateralization or tilting. The right lower leg shows no acute or healing fracture or dislocation or destructive process. There is a moderate posterior and borderline plantar calcaneal spur. Left knee and left lower leg: No fracture, dislocation, destructive process. There is mild narrowing medial knee joint compartment and mild sharpening tibial spine. No erosive change or definite chondrocalcinosis. There is possible trace fluid suprapatellar bursa. No significant effusion. Left lower leg shows no acute or healing fracture or dislocation or destructive process. There is a small to moderate posterior calcaneal spur. XR/XR tibia fibula LT 2V IMPRESSION: Right: -Mild narrowing medial knee joint compartment and patellofemoral joint. -Small suprapatellar effusion. -Calcaneal spurs. Left: -Mild narrowing medial knee joint compartment. -Suspect trace effusion. -Posterior calcaneal spur.
--- NOTE | ~2022-09-27 | XR_ITS ---
EXAMINATION: XR KNEES, STANDING AP XR KNEE, RIGHT XR LOWER LEG, RIGHT XR LOWER LEG, LEFT CLINICAL INFORMATION: Bilateral leg pain. Osteoarthritis COMPARISON: Bilateral knee radiographs 06/28/2019 TECHNIQUE: The knees are imaged in the following views: Bilateral standing AP, bilateral lateral views, right axial patella. The lower legs are imaged in bilateral AP and lateral views. FINDINGS: Right knee and right lower leg: No fracture, dislocation, destructive process. There is mild narrowing medial knee joint compartment and mild narrowing patellofemoral joint. No erosive change or definite chondrocalcinosis. Mild sharpening tibial spine. There is small suprapatellar effusion with mild thickening of the suprapatellar bursa. Axial view patella shows no lateralization or tilting. The right lower leg shows no acute or healing fracture or dislocation or destructive process. There is a moderate posterior and borderline plantar calcaneal spur. Left knee and left lower leg: No fracture, dislocation, destructive process. There is mild narrowing medial knee joint compartment and mild sharpening tibial spine. No erosive change or definite chondrocalcinosis. There is possible trace fluid suprapatellar bursa. No significant effusion. Left lower leg shows no acute or healing fracture or dislocation or destructive process. There is a small to moderate posterior calcaneal spur. XR/XR tibia fibula RT 2V IMPRESSION: Right: -Mild narrowing medial knee joint compartment and patellofemoral joint. -Small suprapatellar effusion. -Calcaneal spurs. Left: -Mild narrowing medial knee joint compartment. -Suspect trace effusion. -Posterior calcaneal spur.
--- NOTE | ~2022-09-27 | XR_ITS ---
EXAMINATION: XR CHEST CLINICAL INFORMATION: R05.9 - Cough, unspecified COMPARISON: None TECHNIQUE: 2 views of the chest were obtained. FINDINGS: The lungs are clear. There is no hyperinflation, airspace consolidation, groundglass opacity, or effusion. The heart is normal in size. The vascularity is normal. The costophrenic sulci are clear. The hilar and mediastinal contours and bony structures are unremarkable. XR/XR chest 2V IMPRESSION: Unremarkable examination.
[2022-09-27 08:56] LABS: Estimated Average Glucose 183 mg/dL
[2022-09-29 09:16] LABS: HBS Num1 2.86 mIU/mL (0-7.99); HBc Num1 0.14 S/CO (0.00-0.79); HBsAGNum1 0.17 S/CO (0.00-0.99); Hepatitis B Core Antibody Nonreactive (Nonreactive); Hepatitis B Surface Antigen Negative (Negative); ~HepC Num1 0.19 S/CO (0.00-0.79); ~Hepatitis B Surface Antibody NONREACTIVE (Nonreactive); ~Hepatitis C Antibody Nonreactive (Nonreactive)
[2022-10-01 07:51] LABS: Hepatitis A Antibody IgM 0.21 Index (0-0.79); ~Hepatitis A Antibody IgM Nonreactive (Nonreactive)
== END 2022-09-27 08:12 | disposition home or self-care (01) ==
LOC: HO.XRAY 08:11
PROVIDERS: Absent Provider Internal Medicine; PCP Internal Medicine; Visit Provider Nurse Practitioner Family
DX: R79.89 Other specified abnormal findings of blood chemistry (principal); R73.01 Impaired fasting glucose; R05.9 Cough, unspecified; M17.10 Unilateral primary osteoarthritis, unspecified knee; M79.605 Pain in left leg; M79.604 Pain in right leg; M25.561 Pain in right knee
CPT/HCPCS: 36415; 71046; 73560; 73565; 73590; 83036; 86704; 86706; 86709; 86803; 87340

== ENCOUNTER → 2022-10-13 08:14 | Outpatient (REF) | payer OTHER, SELFPAY ==
--- NOTE | ~2022-10-13 | NM_ITS ---
EXAMINATION: VT RADIONUCLIDE SOLID FOOD GASTRIC EMPTYING 4-HOUR STUDY CLINICAL INFORMATION: Early satiety. COMPARISON: None TECHNIQUE: A standard meal consisting of 4 oz of Egg Beaters brand tagged with 880 microcuries Tc-99m Sulfur Colloid, 8 oz water and 2 slices of toast with jelly was administered orally to the patient. Images were obtained using a dual head gamma camera in the anterior and posterior projections over of the stomach immediately post ingestion and at hourly intervals up to 4 hours post ingestion. The anterior and posterior counts at each time interval were averaged using the geometric mean and expressed as percentage of the immediate post ingestion counts. FINDINGS: There is good visualization of activity in the stomach immediately post ingestion. As the study progresses, there is rapid clearance of activity from the stomach and visualization of progressively increasing small bowel activity. By the end of the study, there is almost no retention noted in the stomach. Retention in the stomach at each time interval was: 1 hour 39% (normal 37%-90%) 2 hours 0% (normal 30%-60%) 3 hours 0% 4 hours 0% (normal 0%-10%) VT/VT gastric emptying study IMPRESSION: Rapid clearance of solid food after 60 minutes, of indeterminate clinical significance. (For solid meal, rapid gastric emptying is less than 30% at 60 minutes. Delayed gastric emptying criteria is more than 60% remaining at 120 minutes or more than 10% at 240 minutes. The 4-hour value is the best discriminator of a normal or abnormal result).
== END ==
LOC: HO.NUCMED 08:14
PROVIDERS: PCP Internal Medicine; Visit Provider Internal Medicine Gastroenterology
DX: R68.81 Early satiety (principal)
CPT/HCPCS: 78264; A9541

== ENCOUNTER → 2022-10-22 15:06 | Outpatient (BNVA) | payer OTHER, SELFPAY | PROVIDERS: PCP Internal Medicine; Referring Provider Internal Medicine; Visit Provider Internal Medicine Cardiovascular Disease | DX: I20.0 Unstable angina (principal) | CPT/HCPCS: 93005 ==

== ENCOUNTER 2022-10-23 11:43 | Outpatient (REF) | payer OTHER, SELFPAY ==
[2022-10-23 13:30] LABS: Hematocrit 41.7 % (42.0-52.0); Hemoglobin 13.2 g/dl (14.0-18.0); Mean Corpuscular HGB Conc 31.7 g/dl (31.0-36.0); Mean Corpuscular Hemoglobin 28.3 pg (27.0-33.0); Mean Corpuscular Volume 89.5 fL (80.0-98.0); Mean Platelet Volume 11.1 fL (9.4-12.4); Platelet Count 278 X10*3/uL (160-400); Red Blood Count 4.66 X10*6/uL (4.60-5.80); Red Cell Distribution Width 12.5 % (11.0-16.0); White Blood Count 7.4 X10*3/uL (4.8-10.8)
[2022-10-23 13:34] LABS: Prothrombin Time 11.4 SEC (10.0-13.1)
[2022-10-23 18:36] LABS: Anion Gap 15 (12-20); Blood Urea Nitrogen 16 mg/dL (9-16); Calcium 9.4 mg/dL (8.4-10.2); Carbon Dioxide 27 mmol/L (22-29); Chloride 100 mmol/L (96-108); Estimated Glomerular Filt Rate > 60; Glucose Random 299 mg/dL (60-115); Potassium 4.3 mmol/L (3.3-5.1); Sodium 138 mmol/L (135-145); TSH reflex Free T4 1.52 uIU/mL (0.32-4.0)
== END 2022-10-23 11:44 | disposition home or self-care (01) ==
LOC: HO.LAB 11:43
PROVIDERS: PCP Internal Medicine; Visit Provider Internal Medicine Cardiovascular Disease
DX: I20.0 Unstable angina (principal)
CPT/HCPCS: 36415; 80048; 84443; 85027; 85610

== ENCOUNTER 2022-10-25 08:13 | Outpatient (REF) | payer OTHER, SELFPAY ==
--- NOTE | ~2022-10-25 | XR_ITS ---
EXAMINATION: BILATERAL FOOT X-RAY CLINICAL INFORMATION: Pain COMPARISON: Previous x-rays May 2020 TECHNIQUE: 3 views of each foot FINDINGS: Right: Bone alignment is normal. No fracture or dislocation. Mild degenerative changes at the first MTP joint with joint space narrowing and small osteophytes. Calcaneal spur at the Achilles tendon insertion. Left: No fracture or dislocation. Hallux valgus deformity and degenerative change at the first MTP joint. Degenerative changes at the second and AP joint. Soft tissue swelling adjacent to the first metatarsal head. Calcaneal spurs. XR/XR foot RT min 3V IMPRESSION: Bilateral calcaneal spurs. Left hallux valgus deformity and degenerative change at the first MTP joint. Mild degenerative changes at the right first MTP joint and left second MTP joint.
--- NOTE | ~2022-10-25 | XR_ITS ---
EXAMINATION: BILATERAL FOOT X-RAY CLINICAL INFORMATION: Pain COMPARISON: Previous x-rays May 2020 TECHNIQUE: 3 views of each foot FINDINGS: Right: Bone alignment is normal. No fracture or dislocation. Mild degenerative changes at the first MTP joint with joint space narrowing and small osteophytes. Calcaneal spur at the Achilles tendon insertion. Left: No fracture or dislocation. Hallux valgus deformity and degenerative change at the first MTP joint. Degenerative changes at the second and AP joint. Soft tissue swelling adjacent to the first metatarsal head. Calcaneal spurs. XR/XR foot LT min 3V IMPRESSION: Bilateral calcaneal spurs. Left hallux valgus deformity and degenerative change at the first MTP joint. Mild degenerative changes at the right first MTP joint and left second MTP joint.
== END 2022-10-25 08:14 | disposition home or self-care (01) ==
LOC: HO.XRAY 08:13
PROVIDERS: PCP Internal Medicine; Visit Provider Nurse Practitioner Family
DX: M79.672 Pain in left foot (principal); M79.671 Pain in right foot
CPT/HCPCS: 73630

== ENCOUNTER → 2022-10-27 10:28 | Outpatient (BNVA) | payer OTHER, SELFPAY | PROVIDERS: PCP Internal Medicine; Visit Provider Internal Medicine | DX: M54.50 Low back pain, unspecified (principal); M79.605 Pain in left leg; M25.561 Pain in right knee; M25.562 Pain in left knee; M17.10 Unilateral primary osteoarthritis, unspecified knee; M25.571 Pain in right ankle and joints of right foot; M25.572 Pain in left ankle and joints of left foot | CPT/HCPCS: 99212 ==

== ENCOUNTER 2022-10-30 11:40 | Emergency (ER) | payer OTHER, SELFPAY ==
--- NOTE | ~2022-10-30 | CT_ITS ---
EXAMINATION: CT HEAD WITHOUT CONTRAST CLINICAL INFORMATION: Left-sided tingling COMPARISON: Head CT 02/14/2010 TECHNIQUE: Imaging was performed from the skull base to vertex without intravenous administration of contrast. This CT examination was performed using dose optimization techniques as appropriate, variously including the following: *Automated exposure control *Adjustment of mA and/or kV according to patient size (this includes techniques or standardized protocols for targeted exams where dose is matched to indication/reason for exam; i.e. extremities or head) *Use of iterative reconstruction technique Total exam dose length product: 776 mGy-cm FINDINGS: No intra or extra-axial fluid collection, hemorrhage, or mass. No ventriculomegaly. No midline shift or herniation. Basal cisterns are patent. Salas-white matter differentiation is maintained. No territorial encephalomalacia. No significant volume loss. Small focus of hypoattenuation in the left brito radiata, nonspecific. No calvarial fracture or soft tissue abnormality. Small 0.8 cm osteoma along the right frontal sinus drainage pathway. Paranasal sinuses and mastoid air cells otherwise normally aerated. CT/CT head/brain wo IV con IMPRESSION: No intracranial hemorrhage, mass, or acute edematous territorial infarct.
--- NOTE | ~2022-10-30 | XR_ITS ---
EXAMINATION: XR CHEST CLINICAL INFORMATION: Chest pain COMPARISON: 09/27/2022 TECHNIQUE: 2 views of the chest were obtained. FINDINGS: No focal consolidation, pulmonary edema, or pleural effusion. Stable cardiomediastinal silhouette. XR/XR chest 2V IMPRESSION: No acute cardiopulmonary findings.
--- NOTE | 2022-10-30 12:01 | ED.CHESTPAIN ---
HPI - Chest Pain General Chief Complaint: Chest Pain <LEATHA Oliva - Last Filed: 10/30/22 12:05> Stated Complaint: CP, numbness on L side <LEATHA Oliva - Last Filed: 10/30/22 12:05> Time Seen by Provider: 10/30/22 12:34 <LEATHA Oliva - Last Filed: 10/30/22 12:05> Source: patient <Anyi Kaplan MD - Last Filed: 10/30/22 17:02> Mode of arrival: ambulatory <Anyi Kaplan MD - Last Filed: 10/30/22 17:02> History of Present Illness HPI narrative: 57-year-old male with recent diagnosis of diabetes as well as having a cardiac stent placed at [facility] and discharged on Thursday on Brilinta 90 mg, twice a day presents with onset of chest tightness while climbing up stairs that was associated with shortness of breath but he denies any diaphoresis, nausea and he also describes some tingling in the left upper extremity and right lower extremity with subjective feeling of mild weakness on that side. Patient states that the chest discomfort resolved after he stopped climbing the stairs but the tingling in the left upper and lower extremity has continued. Patient did notify his green meat packer, Dr. Raymundo who referred him to the emergency room. Patient otherwise denies any fever, chills and states he has not yet been placed on diabetic medication. <Anyi Kaplan MD - Last Filed: 10/30/22 17:02> Related Data Home Medications: Home Medications Medication Instructions Recorded Confirmed fluorometholone 0.25 % eye drp ophthalmic (eye) 10/29/21 10/27/22 drops,suspension (FML Forte) cyclosporine 0.05 % eye drops in a 1 drp ophthalmic (eye) ONCE 10/22/22 10/27/22 dropperette (Restasis) Previous Rx's Medication Instructions Recorded loratadine 10 mg tablet (Allergy 10 mg PO DAILY #90 tabs 07/16/22 Relief (loratadine)) omeprazole 40 mg capsule,delayed 40 mg PO DAILY #90 caps 07/25/22 release blood pressure monitor #1 ea 08/15/22 amlodipine 5 mg tablet 5 mg PO DAILY #90 tabs 10/03/22 hydrochlorothiazide 12.5 mg tablet 12.5 mg PO DAILY #60 tabs 10/15/22 aspirin 81 mg tablet,delayed 81 mg PO DAILY #90 tabs 10/22/22 release (Adult Aspirin Regimen) atorvastatin 80 mg tablet 80 mg PO BEDTIME #90 tabs 10/22/22 blood sugar diagnostic (FreeStyle #100 ea 10/27/22 Lite Strips) blood-glucose meter (FreeStyle #1 ea 10/27/22 Ozone Lite kit) prednisone 5 mg tablets in a dose See Rx Instructions PO PER PKG DIR 10/27/22 pack #21 ea <LEATHA Oliva - Last Filed: 10/30/22 12:05> Allergies/Adverse Reactions: Allergies Allergy/AdvReac Type Severity Reaction Status Date / Time No Known Allergies Allergy Verified 10/27/22 10:34 [No Known Allergies*] <LEATHA Oliva - Last Filed: 10/30/22 12:05> Review of Systems Review of Systems: Pertinent positives and negatives as stated in HPI 10 point review of systems is otherwise negative. <Anyi Kaplan MD - Last Filed: 10/30/22 17:02> [facility] Past Medical History Source: nursing notes reviewed <Anyi Kaplan MD - Last Filed: 10/30/22 17:02> Medical History: Medical History Anal pain Arthritis Chronic pain syndrome Dyslipidemia GERD (gastroesophageal reflux disease) Knee osteoarthritis <LEAHTA Oliva - Last Filed: 10/30/22 12:05> Surgical History: Surgical History H/O colonoscopy Hx of esophagogastroduodenoscopy Hx of inguinal hernia repair <LEATHA Oliva - Last Filed: 10/30/22 12:05> Family History Family History: Family History Mother No problems noted. Father Heart attack <LEATHA Oliva - Last Filed: 10/30/22 12:05> Social History Social History: Social History Household Members: Spouse and Children Housing: House Alcohol intake: former Patient Tobacco Use Status: Former Tobacco user Quit Date: 2019 Smoked: 15 +/- Smoked in Last 30 Days: No e-Cigarette/Vaping Use: Never Used Second Hand Smoke Exposure: No Advance Directives: Yes Advance Directives Information Provided: Yes Advance Directives on File: No service: No Current occupational status: unemployed Cognitive needs: No Hearing needs: No Vision needs: No <LEATHA Oliva - Last Filed: 10/30/22 12:05> Physical Exam Vital Signs: Vital Signs: Last Vital Signs Temp 97.8 F 10/30/22 12:42 Pulse 90 10/30/22 14:55 Resp 18 10/30/22 14:55 BP 136/88 10/30/22 14:55 Pulse Ox 97 10/30/22 14:55 O2 Del Method 10/30/22 14:55 BMI result Body Mass Index 33.0 <LEATHA Oliva - Last Filed: 10/30/22 12:05> Vital Signs: Last Vital Signs Temp 97.8 F 10/30/22 12:42 Pulse 90 10/30/22 14:55 Resp 18 10/30/22 14:55 BP 136/88 10/30/22 14:55 Pulse Ox 97 10/30/22 14:55 O2 Del Method 10/30/22 14:55 BMI result Body Mass Index 33.0 VITAL SIGNS: Reviewed. GENERAL: Well developed, well nourished, in no acute distress. HEAD: Normocephalic/atraumatic EYES: PERRLA, EOMI EARS: Ext canals without abnormality OROPHARYNX: no oral lesions noted, posterior pharynx clear LUNGS: Good inspiratory effort, no tachypnea, rales positive but no expiratory wheeze/rhonchi. SpO2<95> CARDIOVASCULAR: Regular rate and rhythm without noted murmurs, no JVD or lower extremity edema, symmetrical pulses noted at radius/femoral/PT. ABDOMEN: Soft, non-tender, non-distended with bowel sounds. MUSCULOSKELETAL: No tenderness, deformities, or effusions noted on gross inspection. EXTREMITIES: No cyanosis, clubbing or edema. SKIN: Inspection of the skin reveals no rashes NEUROLOGIC: Alert and oriented x 4. Strength and sensation to light touch were grossly intact x 4, cranial nerves 2-12 are grossly intact, no cerebellar deficits noted. <Anyi Kaplan MD - Last Filed: 10/30/22 17:02> Course Course Course Narrative: 12no - 57yoM who was seen at [facility] last week Thursday and had a cardiac stent placed by Dr. Raymundo due to blockages no MD who is presenting to the ER c c/o of left hand numbness c intermittent mid chest pain that started this morning. Reports that his green meat packer Dr. Sanchez is aware that he is here. Plan: Patient will be brought directly to have an EKG, labs were ordered and patient will be evaluated in the main ER. <LEATHA Oliva - Last Filed: 10/30/22 12:05> 12noon - 57yoM who was seen at [facility] last week Thursday and had a cardiac stent placed by Dr. Raymundo due to blockages no MD who is presenting to the ER c c/o of left hand numbness c intermittent mid chest pain that started this morning. Reports that his green meat packer Dr. Sanchez is aware that he is here. Plan: Patient will be brought directly to have an EKG, labs were ordered and patient will be evaluated in the main ER. 57-year-old male with history and clinical presentation concerning for possible cardiac etiology, CHF exacerbation, neurologic etiology such as lacunar, given the fact that patient's symptoms are unilateral with tingling this would suggest either a central etiology or aortic etiology. With symmetrical pulses this is not specific but will obtain head CT as well as basic labs, initial EKG without comparison and no evidence STEMI or ST depression. Patient re-evaluated with complete resolution of all symptoms, CT negative for acute intracranial etiology. Will obtain 2nd troponin but otherwise patient is asymptomatic. 1700: Review of 2nd troponin which is flat in comparison to 1st, patient remains completely asymptomatic with no EKG changes and is otherwise discharged home in stable condition. <Anyi Kaplan MD - Last Filed: 10/30/22 17:02> Reevaluation(s) Reevaluation #1: Cardiology consulted and recommends that if 2nd troponin is not increasing patient may be discharged. <Anyi Kaplan MD - Last Filed: 10/30/22 17:02> Time: 15:26 <Anyi Kaplan MD - Last Filed: 10/30/22 17:02> Medical Decision Making Lab Data Result Diagrams: : 10/30/22 12:13 10/30/22 12:13 <LEATHA Oliva - Last Filed: 10/30/22 12:05> Labs: Lab Results 10/30/22 10/30/22 10/30/22 Range/Units 12:13 12:13 12:13 WBC 7.9 (4.8-10.8) X10*3/uL RBC 4.57 L (4.60-5.80) X10*6/uL Hgb 13.1 L (14.0-18.0) g/dl Hct 40.7 L (42.0-52.0) % MCV 89.1 (80.0-98.0) fL MCH 28.7 (27.0-33.0) pg MCHC 32.2 (31.0-36.0) g/dl RDW 12.4 (11.0-16.0) % Plt Count 258 (160-400) X10*3/uL MPV 10.7 (9.4-12.4) fL Immature Gran % (Auto) 0.4 (0.0-0.4) % Neut % (Auto) 65.9 (45-73) % Lymph % (Auto) 22.8 (20-40) % [place] % (Auto) 7.6 (2-11) % Eos % (Auto) 2.7 (0-4) % Baso % (Auto) 0.6 (0-2) % Lymph # (Auto) 1.8 (1.2-4.9) X10*3/uL [place] # (Auto) 0.6 (0.1-1.2) X10*3/uL Eos # (Auto) 0.2 (0.0-0.4) X10*3/uL Baso # (Auto) 0.1 (0.0-0.2) X10*3/uL Abs Immat Gran (auto) 0.03 (0.00-0.03) X10*3/uL Absolute Neuts (auto) 5.2 (2.0-8.3) x10*3/uL Absolute Nucleated RBC 0.000 (0.0-0.012) X10*3/uL Nucleated RBC % (auto) 0.0 (0.0-0.2) /100WBC PT 12.3 (10.0-13.1) SEC INR 1.1 (0.9-1.1) APTT (26.0-36.4) SEC Sodium 135 (135-145) mmol/L Potassium 3.8 (3.3-5.1) mmol/L Chloride 102 (96-108) mmol/L Carbon Dioxide 24 (22-29) mmol/L Anion Gap 13 (12-20) BUN 13 (9-16) mg/dL Creatinine 1.01 (0.5-1.4) mg/dL Estim Creat Clear Calc 97.6 Estimated GFR > 60 POC Glucose (60-115) mg/dL Random Glucose 336 H (60-115) mg/dL Calcium 9.4 (8.4-10.2) mg/dL Magnesium 1.8 (1.6-2.6) mg/dL Total Bilirubin 0.6 (0.0-1.0) mg/dL AST 28 (5-37) U/L ALT 39 (0-40) U/L Alkaline Phosphatase 124 H (39-117) U/L Troponin I High Sens (<3.5-35.0) ng/L B-Natriuretic Peptide (<100) pg/mL Total Protein 7.0 (6.5-8.0) g/dL Albumin 4.3 (3.5-5.0) g/dL Urine Color Urine Appearance Urine pH (5.0-9.0) Ur Specific [place] (1.005-1.025) Urine Protein (Neg-Trace) mg/dL Urine Glucose (UA) (Negative) mg/dL Urine Ketones (Negative) mg/dL Urine Blood (Negative) Urine Nitrite (Negative) Ur Leukocyte Esterase (Negative) Urine RBC (0-2) /HPF Urine WBC (0-5) /HPF Ur Squamous Epith Cells (0-2) /HPF Urine Bacteria (None Seen) Hyaline Casts (0-2) /LPF COVID-19 (JAYJAY) (Negative) COVID-19 Clin Com 10/30/22 10/30/22 10/30/22 Range/Units 12:13 12:13 12:13 WBC (4.8-10.8) X10*3/uL RBC (4.60-5.80) X10*6/uL Hgb (14.0-18.0) g/dl Hct (42.0-52.0) % MCV (80.0-98.0) fL MCH (27.0-33.0) pg MCHC (31.0-36.0) g/dl RDW (11.0-16.0) % Plt Count (160-400) X10*3/uL MPV (9.4-12.4) fL Immature Gran % (Auto) (0.0-0.4) % Neut % (Auto) (45-73) % Lymph % (Auto) (20-40) % [place] % (Auto) (2-11) % Eos % (Auto) (0-4) % Baso % (Auto) (0-2) % Lymph # (Auto) (1.2-4.9) X10*3/uL [place] # (Auto) (0.1-1.2) X10*3/uL Eos # (Auto) (0.0-0.4) X10*3/uL Baso # (Auto) (0.0-0.2) X10*3/uL Abs Immat Gran (auto) (0.00-0.03) X10*3/uL Absolute Neuts (auto) (2.0-8.3) x10*3/uL Absolute Nucleated RBC (0.0-0.012) X10*3/uL Nucleated RBC % (auto) (0.0-0.2) /100WBC PT (10.0-13.1) SEC INR (0.9-1.1) APTT 32.0 (26.0-36.4) SEC Sodium (135-145) mmol/L Potassium (3.3-5.1) mmol/L Chloride (96-108) mmol/L Carbon Dioxide (22-29) mmol/L Anion Gap (12-20) BUN (9-16) mg/dL Creatinine (0.5-1.4) mg/dL Estim Creat Clear Calc Estimated GFR POC Glucose (60-115) mg/dL Random Glucose (60-115) mg/dL Calcium (8.4-10.2) mg/dL Magnesium (1.6-2.6) mg/dL Total Bilirubin (0.0-1.0) mg/dL AST (5-37) U/L ALT (0-40) U/L Alkaline Phosphatase (39-117) U/L Troponin I High Sens 25.8 (<3.5-35.0) ng/L B-Natriuretic Peptide (<100) pg/mL Total Protein (6.5-8.0) g/dL Albumin (3.5-5.0) g/dL Urine Color Urine Appearance Urine pH (5.0-9.0) Ur Specific [place] (1.005-1.025) Urine Protein (Neg-Trace) mg/dL Urine Glucose (UA) (Negative) mg/dL Urine Ketones (Negative) mg/dL Urine Blood (Negative) Urine Nitrite (Negative) Ur Leukocyte Esterase (Negative) Urine RBC (0-2) /HPF Urine WBC (0-5) /HPF Ur Squamous Epith Cells (0-2) /HPF Urine Bacteria (None Seen) Hyaline Casts (0-2) /LPF COVID-19 (JAYJAY) Negative (Negative) COVID-19 Clin Com See Note 10/30/22 10/30/22 10/30/22 Range/Units 12:13 12:39 13:27 WBC (4.8-10.8) X10*3/uL RBC (4.60-5.80) X10*6/uL Hgb (14.0-18.0) g/dl Hct (42.0-52.0) % MCV (80.0-98.0) fL MCH (27.0-33.0) pg MCHC (31.0-36.0) g/dl RDW (11.0-16.0) % Plt Count (160-400) X10*3/uL MPV (9.4-12.4) fL Immature Gran % (Auto) (0.0-0.4) % Neut % (Auto) (45-73) % Lymph % (Auto) (20-40) % [place] % (Auto) (2-11) % Eos % (Auto) (0-4) % Baso % (Auto) (0-2) % Lymph # (Auto) (1.2-4.9) X10*3/uL [place] # (Auto) (0.1-1.2) X10*3/uL Eos # (Auto) (0.0-0.4) X10*3/uL Baso # (Auto) (0.0-0.2) X10*3/uL Abs Immat Gran (auto) (0.00-0.03) X10*3/uL Absolute Neuts (auto) (2.0-8.3) x10*3/uL Absolute Nucleated RBC (0.0-0.012) X10*3/uL Nucleated RBC % (auto) (0.0-0.2) /100WBC PT (10.0-13.1) SEC INR (0.9-1.1) APTT (26.0-36.4) SEC Sodium (135-145) mmol/L Potassium (3.3-5.1) mmol/L Chloride (96-108) mmol/L Carbon Dioxide (22-29) mmol/L Anion Gap (12-20) BUN (9-16) mg/dL Creatinine (0.5-1.4) mg/dL Estim Creat Clear Calc Estimated GFR POC Glucose 322 H (60-115) mg/dL Random Glucose (60-115) mg/dL Calcium (8.4-10.2) mg/dL Magnesium (1.6-2.6) mg/dL Total Bilirubin (0.0-1.0) mg/dL AST (5-37) U/L ALT (0-40) U/L Alkaline Phosphatase (39-117) U/L Troponin I High Sens (<3.5-35.0) ng/L B-Natriuretic Peptide < 10 (<100) pg/mL Total Protein (6.5-8.0) g/dL Albumin (3.5-5.0) g/dL Urine Color Yellow Urine Appearance Clear Urine pH 5.5 (5.0-9.0) Ur Specific [place] 1.020 (1.005-1.025) Urine Protein Negative (Neg-Trace) mg/dL Urine Glucose (UA) >=1000 H (Negative) mg/dL Urine Ketones Negative (Negative) mg/dL Urine Blood Negative (Negative) Urine Nitrite Negative (Negative) Ur Leukocyte Esterase Negative (Negative) Urine RBC 0-2 (0-2) /HPF Urine WBC 0-5 (0-5) /HPF Ur Squamous Epith Cells 0-2 (0-2) /HPF Urine Bacteria None Seen (None Seen) Hyaline Casts 0-2 (0-2) /LPF COVID-19 (JAYJAY) (Negative) COVID-19 Clin Com 10/30/22 Range/Units 16:01 WBC (4.8-10.8) X10*3/uL RBC (4.60-5.80) X10*6/uL Hgb (14.0-18.0) g/dl Hct (42.0-52.0) % MCV (80.0-98.0) fL MCH (27.0-33.0) pg MCHC (31.0-36.0) g/dl RDW (11.0-16.0) % Plt Count (160-400) X10*3/uL MPV (9.4-12.4) fL Immature Gran % (Auto) (0.0-0.4) % Neut % (Auto) (45-73) % Lymph % (Auto) (20-40) % [place] % (Auto) (2-11) % Eos % (Auto) (0-4) % Baso % (Auto) (0-2) % Lymph # (Auto) (1.2-4.9) X10*3/uL [place] # (Auto) (0.1-1.2) X10*3/uL Eos # (Auto) (0.0-0.4) X10*3/uL Baso # (Auto) (0.0-0.2) X10*3/uL Abs Immat Gran (auto) (0.00-0.03) X10*3/uL Absolute Neuts (auto) (2.0-8.3) x10*3/uL Absolute Nucleated RBC (0.0-0.012) X10*3/uL Nucleated RBC % (auto) (0.0-0.2) /100WBC PT (10.0-13.1) SEC INR (0.9-1.1) APTT (26.0-36.4) SEC Sodium (135-145) mmol/L Potassium (3.3-5.1) mmol/L Chloride (96-108) mmol/L Carbon Dioxide (22-29) mmol/L Anion Gap (12-20) BUN (9-16) mg/dL Creatinine (0.5-1.4) mg/dL Estim Creat Clear Calc Estimated GFR POC Glucose (60-115) mg/dL Random Glucose (60-115) mg/dL Calcium (8.4-10.2) mg/dL Magnesium (1.6-2.6) mg/dL Total Bilirubin (0.0-1.0) mg/dL AST (5-37) U/L ALT (0-40) U/L Alkaline Phosphatase (39-117) U/L Troponin I High Sens 26.6 (<3.5-35.0) ng/L B-Natriuretic Peptide (<100) pg/mL Total Protein (6.5-8.0) g/dL Albumin (3.5-5.0) g/dL Urine Color Urine Appearance Urine pH (5.0-9.0) Ur Specific [place] (1.005-1.025) Urine Protein (Neg-Trace) mg/dL Urine Glucose (UA) (Negative) mg/dL Urine Ketones (Negative) mg/dL Urine Blood (Negative) Urine Nitrite (Negative) Ur Leukocyte Esterase (Negative) Urine RBC (0-2) /HPF Urine WBC (0-5) /HPF Ur Squamous Epith Cells (0-2) /HPF Urine Bacteria (None Seen) Hyaline Casts (0-2) /LPF COVID-19 (JAYJAY) (Negative) COVID-19 Clin Com <LEATHA Oliva - Last Filed: 10/30/22 12:05> Lab Results 10/30/22 10/30/22 10/30/22 Range/Units 12:13 12:13 12:13 WBC 7.9 (4.8-10.8) X10*3/uL RBC 4.57 L (4.60-5.80) X10*6/uL Hgb 13.1 L (14.0-18.0) g/dl Hct 40.7 L (42.0-52.0) % MCV 89.1 (80.0-98.0) fL MCH 28.7 (27.0-33.0) pg MCHC 32.2 (31.0-36.0) g/dl RDW 12.4 (11.0-16.0) % Plt Count 258 (160-400) X10*3/uL MPV 10.7 (9.4-12.4) fL Immature Gran % (Auto) 0.4 (0.0-0.4) % Neut % (Auto) 65.9 (45-73) % Lymph % (Auto) 22.8 (20-40) % [place] % (Auto) 7.6 (2-11) % Eos % (Auto) 2.7 (0-4) % Baso % (Auto) 0.6 (0-2) % Lymph # (Auto) 1.8 (1.2-4.9) X10*3/uL [place] # (Auto) 0.6 (0.1-1.2) X10*3/uL Eos # (Auto) 0.2 (0.0-0.4) X10*3/uL Baso # (Auto) 0.1 (0.0-0.2) X10*3/uL Abs Immat Gran (auto) 0.03 (0.00-0.03) X10*3/uL Absolute Neuts (auto) 5.2 (2.0-8.3) x10*3/uL Absolute Nucleated RBC 0.000 (0.0-0.012) X10*3/uL Nucleated RBC % (auto) 0.0 (0.0-0.2) /100WBC PT 12.3 (10.0-13.1) SEC INR 1.1 (0.9-1.1) APTT (26.0-36.4) SEC Sodium 135 (135-145) mmol/L Potassium 3.8 (3.3-5.1) mmol/L Chloride 102 (96-108) mmol/L Carbon Dioxide 24 (22-29) mmol/L Anion Gap 13 (12-20) BUN 13 (9-16) mg/dL Creatinine 1.01 (0.5-1.4) mg/dL Estim Creat Clear Calc 97.6 Estimated GFR > 60 POC Glucose (60-115) mg/dL Random Glucose 336 H (60-115) mg/dL Calcium 9.4 (8.4-10.2) mg/dL Magnesium 1.8 (1.6-2.6) mg/dL Total Bilirubin 0.6 (0.0-1.0) mg/dL AST 28 (5-37) U/L ALT 39 (0-40) U/L Alkaline Phosphatase 124 H (39-117) U/L Troponin I High Sens (<3.5-35.0) ng/L B-Natriuretic Peptide (<100) pg/mL Total Protein 7.0 (6.5-8.0) g/dL Albumin 4.3 (3.5-5.0) g/dL Urine Color Urine Appearance Urine pH (5.0-9.0) Ur Specific [place] (1.005-1.025) Urine Protein (Neg-Trace) mg/dL Urine Glucose (UA) (Negative) mg/dL Urine Ketones (Negative) mg/dL Urine Blood (Negative) Urine Nitrite (Negative) Ur Leukocyte Esterase (Negative) Urine RBC (0-2) /HPF Urine WBC (0-5) /HPF Ur Squamous Epith Cells (0-2) /HPF Urine Bacteria (None Seen) Hyaline Casts (0-2) /LPF COVID-19 (JAYJAY) (Negative) COVID-19 Clin Com 10/30/22 10/30/22 10/30/22 Range/Units 12:13 12:13 12:13 WBC (4.8-10.8) X10*3/uL RBC (4.60-5.80) X10*6/uL Hgb (14.0-18.0) g/dl Hct (42.0-52.0) % MCV (80.0-98.0) fL MCH (27.0-33.0) pg MCHC (31.0-36.0) g/dl RDW (11.0-16.0) % Plt Count (160-400) X10*3/uL MPV (9.4-12.4) fL Immature Gran % (Auto) (0.0-0.4) % Neut % (Auto) (45-73) % Lymph % (Auto) (20-40) % [place] % (Auto) (2-11) % Eos % (Auto) (0-4) % Baso % (Auto) (0-2) % Lymph # (Auto) (1.2-4.9) X10*3/uL [place] # (Auto) (0.1-1.2) X10*3/uL Eos # (Auto) (0.0-0.4) X10*3/uL Baso # (Auto) (0.0-0.2) X10*3/uL Abs Immat Gran (auto) (0.00-0.03) X10*3/uL Absolute Neuts (auto) (2.0-8.3) x10*3/uL Absolute Nucleated RBC (0.0-0.012) X10*3/uL Nucleated RBC % (auto) (0.0-0.2) /100WBC PT (10.0-13.1) SEC INR (0.9-1.1) APTT 32.0 (26.0-36.4) SEC Sodium (135-145) mmol/L Potassium (3.3-5.1) mmol/L Chloride (96-108) mmol/L Carbon Dioxide (22-29) mmol/L Anion Gap (12-20) BUN (9-16) mg/dL Creatinine (0.5-1.4) mg/dL Estim Creat Clear Calc Estimated GFR POC Glucose (60-115) mg/dL Random Glucose (60-115) mg/dL Calcium (8.4-10.2) mg/dL Magnesium (1.6-2.6) mg/dL Total Bilirubin (0.0-1.0) mg/dL AST (5-37) U/L ALT (0-40) U/L Alkaline Phosphatase (39-117) U/L Troponin I High Sens 25.8 (<3.5-35.0) ng/L B-Natriuretic Peptide (<100) pg/mL Total Protein (6.5-8.0) g/dL Albumin (3.5-5.0) g/dL Urine Color Urine Appearance Urine pH (5.0-9.0) Ur Specific [place] (1.005-1.025) Urine Protein (Neg-Trace) mg/dL Urine Glucose (UA) (Negative) mg/dL Urine Ketones (Negative) mg/dL Urine Blood (Negative) Urine Nitrite (Negative) Ur Leukocyte Esterase (Negative) Urine RBC (0-2) /HPF Urine WBC (0-5) /HPF Ur Squamous Epith Cells (0-2) /HPF Urine Bacteria (None Seen) Hyaline Casts (0-2) /LPF COVID-19 (JAYJAY) Negative (Negative) COVID-19 Clin Com See Note 10/30/22 10/30/22 10/30/22 Range/Units 12:13 12:39 13:27 WBC (4.8-10.8) X10*3/uL RBC (4.60-5.80) X10*6/uL Hgb (14.0-18.0) g/dl Hct (42.0-52.0) % MCV (80.0-98.0) fL MCH (27.0-33.0) pg MCHC (31.0-36.0) g/dl RDW (11.0-16.0) % Plt Count (160-400) X10*3/uL MPV (9.4-12.4) fL Immature Gran % (Auto) (0.0-0.4) % Neut % (Auto) (45-73) % Lymph % (Auto) (20-40) % [place] % (Auto) (2-11) % Eos % (Auto) (0-4) % Baso % (Auto) (0-2) % Lymph # (Auto) (1.2-4.9) X10*3/uL [place] # (Auto) (0.1-1.2) X10*3/uL Eos # (Auto) (0.0-0.4) X10*3/uL Baso # (Auto) (0.0-0.2) X10*3/uL Abs Immat Gran (auto) (0.00-0.03) X10*3/uL Absolute Neuts (auto) (2.0-8.3) x10*3/uL Absolute Nucleated RBC (0.0-0.012) X10*3/uL Nucleated RBC % (auto) (0.0-0.2) /100WBC PT (10.0-13.1) SEC INR (0.9-1.1) APTT (26.0-36.4) SEC Sodium (135-145) mmol/L Potassium (3.3-5.1) mmol/L Chloride (96-108) mmol/L Carbon Dioxide (22-29) mmol/L Anion Gap (12-20) BUN (9-16) mg/dL Creatinine (0.5-1.4) mg/dL Estim Creat Clear Calc Estimated GFR POC Glucose 322 H (60-115) mg/dL Random Glucose (60-115) mg/dL Calcium (8.4-10.2) mg/dL Magnesium (1.6-2.6) mg/dL Total Bilirubin (0.0-1.0) mg/dL AST (5-37) U/L ALT (0-40) U/L Alkaline Phosphatase (39-117) U/L Troponin I High Sens (<3.5-35.0) ng/L B-Natriuretic Peptide < 10 (<100) pg/mL Total Protein (6.5-8.0) g/dL Albumin (3.5-5.0) g/dL Urine Color Yellow Urine Appearance Clear Urine pH 5.5 (5.0-9.0) Ur Specific [place] 1.020 (1.005-1.025) Urine Protein Negative (Neg-Trace) mg/dL Urine Glucose (UA) >=1000 H (Negative) mg/dL Urine Ketones Negative (Negative) mg/dL Urine Blood Negative (Negative) Urine Nitrite Negative (Negative) Ur Leukocyte Esterase Negative (Negative) Urine RBC 0-2 (0-2) /HPF Urine WBC 0-5 (0-5) /HPF Ur Squamous Epith Cells 0-2 (0-2) /HPF Urine Bacteria None Seen (None Seen) Hyaline Casts 0-2 (0-2) /LPF COVID-19 (JAYJAY) (Negative) COVID-19 Clin Com 10/30/22 Range/Units 16:01 WBC (4.8-10.8) X10*3/uL RBC (4.60-5.80) X10*6/uL Hgb (14.0-18.0) g/dl Hct (42.0-52.0) % MCV (80.0-98.0) fL MCH (27.0-33.0) pg MCHC (31.0-36.0) g/dl RDW (11.0-16.0) % Plt Count (160-400) X10*3/uL MPV (9.4-12.4) fL Immature Gran % (Auto) (0.0-0.4) % Neut % (Auto) (45-73) % Lymph % (Auto) (20-40) % [place] % (Auto) (2-11) % Eos % (Auto) (0-4) % Baso % (Auto) (0-2) % Lymph # (Auto) (1.2-4.9) X10*3/uL [place] # (Auto) (0.1-1.2) X10*3/uL Eos # (Auto) (0.0-0.4) X10*3/uL Baso # (Auto) (0.0-0.2) X10*3/uL Abs Immat Gran (auto) (0.00-0.03) X10*3/uL Absolute Neuts (auto) (2.0-8.3) x10*3/uL Absolute Nucleated RBC (0.0-0.012) X10*3/uL Nucleated RBC % (auto) (0.0-0.2) /100WBC PT (10.0-13.1) SEC INR (0.9-1.1) APTT (26.0-36.4) SEC Sodium (135-145) mmol/L Potassium (3.3-5.1) mmol/L Chloride (96-108) mmol/L Carbon Dioxide (22-29) mmol/L Anion Gap (12-20) BUN (9-16) mg/dL Creatinine (0.5-1.4) mg/dL Estim Creat Clear Calc Estimated GFR POC Glucose (60-115) mg/dL Random Glucose (60-115) mg/dL Calcium (8.4-10.2) mg/dL Magnesium (1.6-2.6) mg/dL Total Bilirubin (0.0-1.0) mg/dL AST (5-37) U/L ALT (0-40) U/L Alkaline Phosphatase (39-117) U/L Troponin I High Sens 26.6 (<3.5-35.0) ng/L B-Natriuretic Peptide (<100) pg/mL Total Protein (6.5-8.0) g/dL Albumin (3.5-5.0) g/dL Urine Color Urine Appearance Urine pH (5.0-9.0) Ur Specific [place] (1.005-1.025) Urine Protein (Neg-Trace) mg/dL Urine Glucose (UA) (Negative) mg/dL Urine Ketones (Negative) mg/dL Urine Blood (Negative) Urine Nitrite (Negative) Ur Leukocyte Esterase (Negative) Urine RBC (0-2) /HPF Urine WBC (0-5) /HPF Ur Squamous Epith Cells (0-2) /HPF Urine Bacteria (None Seen) Hyaline Casts (0-2) /LPF COVID-19 (JAYJAY) (Negative) COVID-19 Clin Com <Anyi Kaplan MD - Last Filed: 10/30/22 17:02> Independent Interpretation I performed an independent interpretation of an: EKG <Anyi Kaplan MD - Last Filed: 10/30/22 17:02> Interpretation: Normal sinus rhythm, HR-96, no STEMI, [place]/QRS/QTC are within normal limits. <Anyi Kaplan MD - Last Filed: 10/30/22 17:02> Critical Care Time Critical Care Time Critical Care Time: Yes <Anyi Kaplan MD - Last Filed: 10/30/22 17:02> Total Critical Care Time: 30 <Anyi Kaplan MD - Last Filed: 10/30/22 17:02> Attestation: I personally attest to this time spent taking care of the patient. <Anyi Kaplan MD - Last Filed: 10/30/22 17:02> Discharge Plan Discharge Clinical Impression: Chest pain <LEATHA Oliva - Last Filed: 10/30/22 12:05> Patient Disposition: Home, Self-Care <LEATHA Oliva - Last Filed: 10/30/22 12:05> Instructions: Chest Pain (ED) <LEATHA Oliva - Last Filed: 10/30/22 12:05> Additional Instructions: 1. Resume all home medications as prescribed. 2. Please call the cardiology office tomorrow morning to set up an appointment for re-evaluation further outpatient management. Return to the ER if you have any worsening or recurrent of symptoms. <LEATHA Oliva - Last Filed: 10/30/22 12:05> Prescriptions: No Action loratadine [Allergy Relief (loratadine)] 10 mg tablet 10 mg PO DAILY Qty: 90 1RF omeprazole 40 mg capsule,delayed release(DR/EC) 40 mg PO DAILY Qty: 90 1RF (DME) blood pressure monitor Kit See Rx Instructions .Route Qty: 1 0RF Rx Instructions: As directed amlodipine 5 mg tablet 5 mg PO DAILY Qty: 90 3RF hydrochlorothiazide 12.5 mg tablet 12.5 mg PO DAILY Qty: 60 4RF (DME) FreeStyle Lite Strips Strip See Rx Instructions .MEDSUPPLY Qty: 100 1RF Rx Instructions: Once a day (DME) blood-glucose meter [FreeStyle [place] Lite] Kit See Rx Instructions .MEDSUPPLY Qty: 1 0RF Rx Instructions: Check Blood Sugar FML Forte 0.25 % drops,suspension ophthalmic (eye) cyclosporine [Restasis] 0.05 % dropperette 1 drp ophthalmic (eye) ONCE atorvastatin 80 mg tablet 80 mg PO BEDTIME Qty: 90 4RF aspirin [Adult Aspirin Regimen] 81 mg tablet,delayed release (DR/EC) 81 mg PO DAILY Qty: 90 4RF prednisone 5 mg tablets,dose pack See Rx Instructions PO PER PKG DIR Qty: 21 0RF Rx Instructions: PO PER PKG DIR <LEATHA Oliva - Last Filed: 10/30/22 12:05> Referrals: Toño Cortez MD [Primary Care Provider] - Papo Resendiz MD [Physician] - <LEATHA Oliva - Last Filed: 10/30/22 12:05>
[2022-10-30 12:02] VITALS: BP 142/67; PULSE 97; RESP 18; TEMP 36.6; O2SAT 97; BMI 33.0
--- NOTE | 2022-10-30 12:03 | ECG_ITS ---
Test Reason : CHEST PAIN Blood Pressure : / mmHG Vent. Rate : 096 BPM Atrial Rate : 096 BPM P-R Int : 188 ms QRS Dur : 080 ms QT Int : 346 ms P-R-T Axes : 044 -12 025 degrees QTc Int : 437 ms Normal sinus rhythm Normal ECG No previous ECGs available Referred By: Nicky Reinoso Electronically Signed By:JODEE MORALES
[2022-10-30 12:18] LABS: MANUAL DIFF FLAG NO
[2022-10-30 12:22] LABS: Basophils Absolute Auto 0.1 X10*3/uL (0.0-0.2); Basophils Percent Auto 0.6 % (0-2); Eosinophils Absolute Auto 0.2 X10*3/uL (0.0-0.4); Eosinophils Percent Auto 2.7 % (0-4); Hematocrit 40.7 % (42.0-52.0); Hemoglobin 13.1 g/dl (14.0-18.0); Imm Gran Abs Auto 0.03 X10*3/uL (0.00-0.03); Imm Gran Pct Auto 0.4 % (0.0-0.4); Lymphocytes Absolute Auto 1.8 X10*3/uL (1.2-4.9); Lymphocytes Percent Auto 22.8 % (20-40); Mean Corpuscular HGB Conc 32.2 g/dl (31.0-36.0); Mean Corpuscular Hemoglobin 28.7 pg (27.0-33.0); Mean Corpuscular Volume 89.1 fL (80.0-98.0); Mean Platelet Volume 10.7 fL (9.4-12.4); Monocytes Absolute Auto 0.6 X10*3/uL (0.1-1.2); Monocytes Percent Auto 7.6 % (2-11); Neutrophils Absolute Auto 5.2 x10*3/uL (2.0-8.3); Neutrophils Percent Auto 65.9 % (45-73); Platelet Count 258 X10*3/uL (160-400); Red Blood Count 4.57 X10*6/uL (4.60-5.80); Red Cell Distribution Width 12.4 % (11.0-16.0); White Blood Count 7.9 X10*3/uL (4.8-10.8)
[2022-10-30 12:29] LABS: INTERNATIONAL NORM RATIO 1.1 (0.9-1.1); Prothrombin Time 12.3 SEC (10.0-13.1)
[2022-10-30 12:32] LABS: COVID-19 Test Negative (Negative); IDNOW Serial# 16C4AD1C
[2022-10-30 12:35] VITALS: BP 143/84; PULSE 95; RESP 20; TEMP 36.7; O2SAT 96
[2022-10-30 12:39] LABS: Alanine Aminotransferase 39 U/L (0-40); Albumin Level 4.3 g/dL (3.5-5.0); Alkaline Phosphatase 124 U/L (39-117); Anion Gap 13 (12-20); Aspartate Amino Transferase 28 U/L (5-37); Bilirubin Total 0.6 mg/dL (0.0-1.0); Blood Urea Nitrogen 13 mg/dL (9-16); Calcium 9.4 mg/dL (8.4-10.2); Carbon Dioxide 24 mmol/L (22-29); Chloride 102 mmol/L (96-108); Creatinine Clr Calc Pharmacy 97.6; Estimated Glomerular Filt Rate > 60; Glucose Random 336 mg/dL (60-115); Magnesium 1.8 mg/dL (1.6-2.6); Potassium 3.8 mmol/L (3.3-5.1); Sodium 135 mmol/L (135-145)
[2022-10-30 12:42] VITALS: BP 136/88; PULSE 92; RESP 18; TEMP 36.6; O2SAT 95
[2022-10-30 12:43] LABS: Troponin-I High Sensitivity 25.8 ng/L (<3.5-35.0)
[2022-10-30 12:44] LABS: Glucose, Whole Blood 322 mg/dL (60-115)
--- NOTE | 2022-10-30 12:51 | PC.NURSE ---
patient a/ox4 . celesterla . heart rate regular 92 beats per minute . breathing even and unlabored . lungs clear throughout . skin pink warm and dry . abdomen a soft not tender . positive bowel sounds throughout . IV placed in right A.C . patient reports feeling substernal preassure since this AM . Patient had a cardiac stent placed Thursday at [facility] [place]. patient reports 0 out of 10 pain level . patient on cardiac nurse at bedside currently normal sinus rhythm . POC 322 , patient recently diagnosed as DM 2 DR Joanne Kaplan aware . patient aware of plan of care .
[2022-10-30 13:28] LABS: B Type Natriuretic Peptide < 10 pg/mL (<100)
[2022-10-30 13:41] LABS: Appearance Urine Clear; Color Urine Yellow; Glucose Urine UA >=1000 mg/dL (Negative); Leukocyte Esterase Urine Negative (Negative); Nitrite Urine Negative (Negative); PH 5.5 (5.0-9.0); UMIC TRIGGER UACC YES; Urine Blood Negative (Negative); Urine Ketones Negative (Negative); Urine Protein Negative (Neg-Trace)
[2022-10-30 13:50] LABS: Bacteria Urine None Seen (None Seen); Hyaline Casts Urine 0-2 /LPF (0-2); RBC Urine 0-2 /HPF (0-2); Squamous Epithelial Cell Urine 0-2 /HPF (0-2); WBC Urine 0-5 /HPF (0-5)
[2022-10-30 14:55] VITALS: BP 136/88; PULSE 90; RESP 18; O2SAT 97
[2022-10-30 16:44] LABS: Troponin-I High Sensitivity 26.6 ng/L (<3.5-35.0)
--- NOTE | 2022-10-30 17:16 | PC.NURSE ---
a/ox4 . VSS . Went over discharge instructions as ordered by provider . Patient to follow up with primary care and statistical assistant . Patient to return to Ed if symptoms worsen no questions at this time .
== END 2022-10-30 17:18 | disposition home or self-care (01) ==
PROVIDERS: Physician Assistant Medical; Emergency Provider Student in an Organized Health Care Education/Training Program; PCP Internal Medicine
DX: R07.89 Other chest pain (principal); R20.0 Anesthesia of skin; R51.9 Headache, unspecified; Z20.822 Contact with and (suspected) exposure to COVID-19; Z79.899 Other long term (current) drug therapy; Z87.891 Personal history of nicotine dependence
CPT/HCPCS: 36415; 70450; 71046; 80053; 81001; 82947; 83735; 83880; 84484; 85025; 85610; 85730; 87635; 93005; 99284; 99285

== ENCOUNTER → 2022-11-19 12:39 | Outpatient (BNVA) | payer OTHER, SELFPAY | PROVIDERS: PCP Internal Medicine; Visit Provider Internal Medicine Cardiovascular Disease | DX: I25.118 Atherosclerotic heart disease of native coronary artery with other forms of angina pectoris (principal); I10 Essential (primary) hypertension | CPT/HCPCS: 99212 ==

== ENCOUNTER 2022-11-27 14:00 | Outpatient (REF) | payer OTHER, SELFPAY ==
--- NOTE | ~2022-11-27 | XR_ITS ---
EXAMINATION: XR CHEST CLINICAL INFORMATION: Acute bronchitis. COMPARISON: None TECHNIQUE: 2 views of the chest were obtained. FINDINGS: No significant abnormality is noted involving the heart, lungs, mediastinum, bony thorax or soft tissues. XR/XR chest 2V IMPRESSION: Unremarkable chest examination.
== END 2022-11-27 14:01 | disposition home or self-care (01) ==
LOC: HO.XRAY 14:00
PROVIDERS: PCP Internal Medicine; Visit Provider Internal Medicine
DX: J44.9 Chronic obstructive pulmonary disease, unspecified (principal)
CPT/HCPCS: 71046; 94010; 99212

== ENCOUNTER 2022-12-02 08:31 | Outpatient (REF) | payer OTHER, SELFPAY ==
--- NOTE | ~2022-12-02 | US_ITS ---
EXAMINATION: US COMPLETE ABDOMEN WITH LIVER ELASTOGRAPHY CLINICAL INFORMATION: Epigastric pain. COMPARISON: None. TECHNIQUE: Real-time imaging of the abdominal viscera. Noninvasive ultrasound liver fibrosis assessment is performed using Markie ElastPQ point quantification shear wave elastography (2D-SWE) with a C5-2 MHz transducer. Multiple elastography samples are obtained. FINDINGS: PANCREAS: The pancreas is partially obscured by overlying gas. Partially visualized body of the pancreas is homogeneous and unremarkable. ABDOMINAL AORTA: The proximal, middle, and distal aortic segments are normal in caliber. INFERIOR VENA CAVA: Visualized portions are normal. LIVER: The liver demonstrates normal size, contour and diffuse increased echogenicity. No focal lesion or intrahepatic biliary duct dilatation. The right lobe measures 16.9 cm in length. The left lobe measures 10.9 cm in length. Portal flow is hepatopedal. Shear wave liver elastography median stiffness is 1.54 m/s (reference: normal median stiffness is 1.3 m/s or less). IQR/median stiffness to assess sampling precision is 0.11 (reference: good quality data set is IQR/median stiffness of 0.15 or less). GALLBLADDER: Normal. The gallbladder is physiologically distended without evidence of stones, sludge, polyps, wall thickening or pericholecystic fluid. COMMON BILE DUCT: Normal in caliber measuring 0.4 cm in diameter. RIGHT KIDNEY: Normal. No hydronephrosis. No renal calculi or focal parenchymal lesions. The kidney measures 11.7 cm in maximum dimension. LEFT KIDNEY: There is an echogenic lesion measuring 0.4 x 0.3 x 0.3 cm in midpole suggestive of a small angiomyolipoma. No hydronephrosis. No renal calculi or focal parenchymal lesions. The kidney measures 11.4 cm in maximum dimension. SPLEEN: Normal. The spleen measures 9.2 cm in maximum dimension. FREE FLUID: None. US/US abdomen comp w elastography IMPRESSION: 1. 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 2. Liver elastography: Median liver stiffness measures 1.54 m/s corresponding to cACLD ruled out. REFERENCE: Society of Radiologists in Ultrasound Liver Stiffness Thresholds (2020): LIVER STIFFNESS THRESHOLDS: *Liver Stiffness equal or less than 1.3 m/s: High probability of being normal. *Liver Stiffness less than 1.7 m/s: In the absence of other known clinical signs, rules out compensated advanced chronic liver disease. *Liver Stiffness 1.7-2.1 m/s: Suggestive of compensated advanced chronic liver disease but need further test for confirmation. *Liver Stiffness over 2.1 m/s: Rules in compensated advanced chronic liver disease. *Liver Stiffness over 2.4 m/s: Suggestive of clinically significant portal hypertension. QUALITY OF DATA SET: *IQR/Median value equal or less than 0.15 implies a quality data set. *IQR/Median value over 0.15 implies a poor quality data set. SIGNIFICANT CHANGE FROM PRIOR EXAM: Significant change if liver stiffness measurement is 10% or greater from prior exam. OTHER CONSIDERATIONS: The stage of liver fibrosis may be overestimated in the setting of acute hepatitis, liver inflammation, elevated liver function tests, hepatic vascular congestion, obstructive cholestasis, non-fasting state, and infiltrative diseases such as amyloidosis and lymphoma. In some patients with NAFLD, the liver stiffness thresholds for compensated advanced chronic liver disease may be lower. In causes other than viral hepatitis and NAFLD, liver stiffness thresholds are not well established.
== END 2022-12-02 08:32 | disposition home or self-care (01) ==
LOC: HO.US 08:31
PROVIDERS: Visit Provider Internal Medicine Gastroenterology
DX: R10.13 Epigastric pain (principal); K76.0 Fatty (change of) liver, not elsewhere classified
CPT/HCPCS: 76705; 76981

== ENCOUNTER → 2022-12-15 15:25 | Outpatient (BNVA) | payer OTHER, SELFPAY | PROVIDERS: PCP Internal Medicine; Visit Provider Internal Medicine | DX: J44.9 Chronic obstructive pulmonary disease, unspecified (principal); R05.9 Cough, unspecified | CPT/HCPCS: 99212 ==

== ENCOUNTER 2023-03-23 10:12 | Outpatient (REF) | payer OTHER, SELFPAY ==
--- NOTE | 2023-03-23 10:08 | PFT_ITS ---
Forced vital capacity 68%, FEV1 67%, FEV1/FVC ratio is 75. CFV09-30 53% and MVV is 56%. Post bronchodilator therapy, there is a significant improvement in FEV1 and BNQ12-50. Total lung capacity 75%. Residual volume 93%. Diffusion capacity 68% CONCLUSION: There is evidence of mild to moderate degree of obstructive airway disorder. Good response to bronchodilator therapy indicates presence of asthma. These results are consistent with asthma/COPD overlap syndrome. Clinical correlation is recommended. MD BREN Murray/AJIT / [phone]
== END 2023-03-23 10:13 | disposition home or self-care (01) ==
LOC: HO.RESP 10:12
PROVIDERS: PCP Internal Medicine; Visit Provider Internal Medicine
DX: J44.9 Chronic obstructive pulmonary disease, unspecified (principal)
CPT/HCPCS: 94010; 94727; 94729; 99212

== ENCOUNTER → 2023-04-16 15:00 | Outpatient (BNVA) | payer OTHER, SELFPAY | PROVIDERS: PCP Internal Medicine; Visit Provider Internal Medicine Cardiovascular Disease | DX: I20.8 Other forms of angina pectoris (principal); I10 Essential (primary) hypertension | CPT/HCPCS: 99212 ==

== ENCOUNTER 2023-08-31 15:11 | Outpatient (REF) | payer OTHER, SELFPAY ==
--- NOTE | ~2023-08-31 | XR_ITS ---
EXAMINATION: XR RIBS, RIGHT CLINICAL INFORMATION: Pleurodynia COMPARISON: Chest radiograph from 11/27/2022 TECHNIQUE: AP chest and 5 views of right rib cage FINDINGS: Lungs are clear. No consolidation, pneumothorax, or pleural effusion. The cardiomediastinal silhouette and pulmonary vasculature are normal. Osseous structures are unremarkable. Ribs are intact. No fractures are identified. XR/XR ribs RT min 3V w CXR1V IMPRESSION: Unremarkable examination.
== END 2023-08-31 15:12 | disposition home or self-care (01) ==
LOC: HO.XRAY 15:11
PROVIDERS: PCP Internal Medicine; Visit Provider Internal Medicine
DX: R07.81 Pleurodynia (principal)
CPT/HCPCS: 64420; 64421; 71101; J3301

== ENCOUNTER 2023-08-31 15:34 | Outpatient (AMB) | payer OTHER, SELFPAY ==
[2023-08-31 15:45] VITALS: BP 131/81; PULSE 85; RESP 14; O2SAT 95; BMI 31.9
--- NOTE | 2023-08-31 15:45 | A.OFFVIS_ITS ---
Intake Vital Signs 08/31/23 15:45 Height 5 ft 10 in Weight 222 lb BMI 31.9 BP 131/81 Blood Pressure Location Rt brachial Position Sitting Respiration 14 Pulse 85 Pulse Source Pulse Oximeter Pulse Oximetry (%) 95 Oxygen Delivery Method Room Air Intake Visit Reasons: intercostal NB Allergies No Known Allergies [No Known Allergies*] Allergy (Verified 09/07/23 09:10) HPI intercostal NB HPI Details 58-year-old male who presents today to t he office for an intercostal nerve block for acute rib pain following trauma to the ribcage. Denies any recent cough, cold, infection, fever or other significant changes in medical history since last office visit. Past Procedures: 06/25/22: Sprint PNS for Right Saphenous Nerve ? off and on relief. 04/23/22: Right Suprapatellar Saphenous GN B ? 70% relief for a few days. [facility] Medical History Asthma with COPD COPD (chronic obstructive pulmonary disease) Acute bronchitis and bronchiolitis Dyslipidemia Chronic pain syndrome Knee osteoarthritis Anal pain Arthritis GERD (gastroesophageal reflux disease) Surgical History History of cardiac cath Hx of esophagogastroduodenoscopy Hx of inguinal hernia repair H/O colonoscopy Family History Mother No problems noted. Father Heart attack Social History Household Members: Spouse and Children Housing: House Alcohol intake: former Patient Tobacco Use Status: Former Tobacco user Quit Date: 2019 Smoked: 15 +/- e-Cigarette/Vaping Use: Never Used Second Hand Smoke Exposure: No service: No Current occupational status: unemployed Cognitive needs: No Hearing needs: No Vision needs: No Review of Systems Const All systems reviewed & are unremarkable except as noted in HPI and below Physical Exam Vital Signs: Last Vital Signs Pulse 85 08/31/23 15:45 Resp 14 08/31/23 15:45 BP 131/81 08/31/23 15:45 Pulse Ox 95 08/31/23 15:45 Oxygen Delivery Method Room Air 08/31/23 15:45 BMI result Body Mass Index 31.9 General: Appears afebrile. Alert and oriented. Mood and affect appropriate. Follows and participates in conversation appropriately. Respiratory effort is unlabored. Able to transition from sit to stand unassisted. Ambulates with bilaterally normal heel strike and toe off. Office Procedures Nerve Block Details: Right T5-T6-T7 intercostal nerve block, ultrasound guided. After obtaining written consent, pre-procedure time-out was completed. The patient was placed in a left lateral position. The relevant levels of the intercostal nerves were physically palpated corresponding to the patient's pain and marked. Using ultrasound, the appropriate landmarks including the rib, intercostal muscles and pleura were identified. The skin was anesthetized with 1% lidocaine. A 21-gauge 80 mm echostim needle was advanced under sonographic guidance in proximity to each of the intercostal nerves. Aspiration was negative for heme and air. 2 cc of ropivacaine 0.5% mixed with 10 mg Kenalog was injected around each of the targeted nerves. The needle was removed, skin cleansed and a sterile bandage was applied. The patient tolerated the procedure well and no complications were encountered. Following the procedure, the patient's vital signs and respiration were stable. The patient was discharged home in good condition with post-procedural instructions. Time Out: Immediately prior to the procedure, the following was verbally confirmed that there is a signed consent form and that the correct patient, planned procedure, site and side are consistent with documentation and that necessary equipment and/or blood products are available prior to the start of the case. Complications: none EBL: <1 cc Note: An ultrasound image of the injection was taken and stored in the permanent record. Procedure code (CPT) selection complete Results Reviewed Results Reviewed: No imaging is available for review. Assessment & Plan Assessment & Plan (1) Rib pain on right side: Code(s): R07.81 - Pleurodynia Plan Patient is status post right T5-T6-T7 intercostal nerve block. Patient tolerated procedure well and was discharged home in stable condition with discharge instructions. All questions were answered. We will follow-up in two weeks via telephone or in clinic to assess response to therapy. A follow-up appointment was made during today's visit. Scribed for Dr. Alexander by Cuco Rivas, medical services manager, on 08/31/2023. I, Dr. Alexander, have personally reviewed and agree with the information entered by the scribe. Coding Level of Care Code Procedure Only Diagnoses Rib pain on right side R07.81
== END 2023-08-31 16:21 | disposition home or self-care (01) ==
PROVIDERS: PCP Internal Medicine; Visit Provider Internal Medicine
DX: R07.81 Pleurodynia (principal)
CPT/HCPCS: 64420; 64421; 76942

== ENCOUNTER 2023-09-01 08:57 | Outpatient (AMB) | payer OTHER, SELFPAY ==
--- NOTE | 2023-09-01 09:16 | A.OFFVIS_ITS ---
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 Accompanied by: Self / Same As Patient Allergies No Known Allergies [No Known Allergies*] Allergy (Verified 09/01/23 09:17) Medication List - Last Reconciled 09/01/23 by José Miguel Mcgraw MD albuterol sulfate 90 mcg/actuation 2 puffs inhalation .every 8 hours PRN 30 days amlodipine 5 mg PO DAILY aspirin (Adult Aspirin Regimen) 81 mg PO DAILY atorvastatin 80 mg PO BEDTIME blood pressure monitor As directed blood sugar diagnostic (FreeStyle Lite Strips) Once a day blood-glucose meter (FreeStyle [place] Lite kit) Check Blood Sugar budesonide-formoterol 160-4.5 mcg/actuation (Symbicort) 2 puffs inhalation BID 30 days clopidogrel 75 mg PO DAILY cyclosporine 0.05% (Restasis) 1 drp ophthalmic (eye) ONCE diclofenac sodium 1% 4 grams topical QID hydrochlorothiazide 12.5 mg PO DAILY ibuprofen 600 mg PO TID PRN lancets (FreeStyle Lancets) bid lancets (FreeStyle Lancets) As directed loratadine (Allergy Relief (loratadine)) 10 mg PO DAILY metformin 500 mg PO BID 90 days nortriptyline TAKE 1 TABLET BY MOUTH EVERY NIGHT AT BEDTIME omeprazole 40 mg PO DAILY polyethylene glycol 3350 (Miralax) 17 grams PO BID rifaximin 550 mg PO TID 2 weeks saliva substitute combo no.9 (Biotene Dry Mouth Oral Rinse mouthwash) 15 mL mucous membrane BID-QID PRN HPI HPI Comments History of Present Illness Details Virgil is [place]. He is a patient of Dr. Coy. 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 Initial symptoms include erectile dysfunction Yes decreased libido Yes change in mood/depression Yes in muscle size/strength Yes increased fatigue/malaise Yes increased abdominal fat No tender breasts/gynecomastia No hair loss No osteopenia No The onset of symptoms has been gradual. Erectile status baseline VIRGIE Score 06/04 - T 216 FSH 14 Prolactin 31, T195, 08/05 325, 11/04 487, 05/06 80 Prior therapy clomiphene - Elevated estradiol with side effects Side effect with cialis - muscle weakness - 5mg Male Infertility: Male infertility Normalized T Start hcg 750iu 2x a week Repeat semen analysis in 3 months The patient presents for further evaluation and management of infertility. Number of pregnancies with current or prior partners current, 0, prior, 0. Current partner prior (s) no prior pregancnies. They have been involved with their partner in unprotected intercourse 6 - 12 months sexual frequency 1x/week ovulation timing with basal temperature measuring No erectile function satisfactory ejaculation routinely occurs semen quality white prior contraceptive use never used Associated conditions history of genital trauma/torsion No history of catheterization No diabetes No gynecomastia No heat exposure (hot tub) No cannabis use No STI (gonorrhea/Chlamydia) No pelvic/spinal trauma No exogenous steroid use No exposure to radiation/chemotherapy No tecticular cancer No varicocele No congenital absence of the vasa No PFSH Medical History Asthma with COPD COPD (chronic obstructive pulmonary disease) Acute bronchitis and bronchiolitis Dyslipidemia Chronic pain syndrome Knee osteoarthritis Anal pain Arthritis GERD (gastroesophageal reflux disease) Surgical History History of cardiac cath Hx of esophagogastroduodenoscopy Hx of inguinal hernia repair H/O colonoscopy Family History Mother No problems noted. Father Heart attack Social History Household Members: Spouse and Children Housing: House Alcohol intake: former Patient Tobacco Use Status: Former Tobacco user Quit Date: 2019 Smoked: 15 +/- e-Cigarette/Vaping Use: Never Used Second Hand Smoke Exposure: No service: No Current occupational status: unemployed Cognitive needs: No Hearing needs: No Vision needs: No Review of Systems Const All systems reviewed & are unremarkable except as noted in HPI and below Reports no additional complaints Resp Reports no additional complaints GI Reports no additional complaints Reports as per HPI Musc Reports no additional complaints Physical Exam Telemedicine evaluation Appropriate responses Regular breathing rate and rhythm HEENT Head: Yes normal to inspection Ears: hearing grossly normal bilaterally Eyes General: appearance normal, both eyes and all related structures Neck Neck: Yes normal visual inspection Chest Chest palpation & inspection: normal inspection of the chest Resp Effort & Inspection: normal respiratory effort and able to speak in complete sentences Assessment & Plan Assessment & Plan (1) Erectile dysfunction associated with type 2 diabetes mellitus: Code(s): E11.69 - Type 2 diabetes mellitus with other specified complication; N52.1 - Erectile dysfunction due to diseases classified elsewhere (2) Hypogonadism in male: Code(s): E29.1 - Testicular hypofunction (3) Male infertility: Code(s): N46.9 - Male infertility, unspecified Plan Restart hCG 500 IU 2 times per week Refills identified prescription Medications: New sildenafil administer 60 minutes before intended activity 100 mg PO ONCE 30 days PRN 30 tabs 1RF sexual activity N52.01 - Erectile dysfunction due to arterial insufficiency chorionic gonadotropin, human (Pregnyl) 10,000 mix in 5cc of NSal Inject 0.25cc (500 units) 2x a week intramuscular 500 units IM 2XW 1 ea 1RF 10 weeks E29.1 - Testicular hypofunction, N46.9 - Male infertility, unspecified Patient Instructions: Imaging studies, laboratory and physical exam results were discussed and reviewed in detail. No major barriers to patient understanding were identified. An opportunity to ask questions regarding the treatment plan was provided. All questions were answered. The patient expressed understanding and agreement with the above treatment plan. The patient is aware they should contact our office by phone for worsening of their current condition or the appearance of new urologic symptoms. Compliance is encouraged with any medications and followup testing that is ordered. It is a privilege to participate in the urologic care of your patient. If you have any questions or concerns regarding treatment for the above conditions, or other urologic issues, please do not hesitate to contact me. The office telephone contact is [phone]. This note is constructed using voice recognition software. While every effort has been made to ensure accuracy real estate analyst errors may have been included. Yours sincerely, Dr José Miguel Mcgraw MD, [facility] - Urology Providers of Expert, Compassionate Care for the Genitourinary System Telehealth Telehealth Location of provider rendering services: practice address Location of patient: address on file Patient Identification confirmed using: Name, : Yes Telehealth method: video Patient verbally consented to treatment: Yes Patient verbally consented to billing insurance company: Yes Patient informed of any privacy concerns related to visit: Yes Coding Level of Care Code Tele Est Pt Level 4 (16968) Diagnoses Erectile dysfunction associated with type 2 diabetes mellitus E11.69; N52.1 Hypogonadism in male E29.1 Male infertility N46.9
== END 2023-09-01 09:40 | disposition home or self-care (01) ==
PROVIDERS: PCP Internal Medicine; Visit Provider Urology
DX: E11.69 Type 2 diabetes mellitus with other specified complication (principal); N52.1 Erectile dysfunction due to diseases classified elsewhere; E29.1 Testicular hypofunction; N46.9 Male infertility, unspecified
CPT/HCPCS: 99213

== ENCOUNTER → 2023-09-01 08:57 | Outpatient (BNVA) | payer OTHER, SELFPAY | PROVIDERS: PCP Internal Medicine; Visit Provider Urology ==

== ENCOUNTER 2023-09-07 09:05 | Outpatient (AMB) | payer OTHER, SELFPAY ==
--- NOTE | 2023-09-07 09:07 | A.OFFVIS_ITS ---
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 Accompanied by: Self / Same As Patient Allergies No Known Allergies [No Known Allergies*] Allergy (Verified 09/07/23 09:10) Medication List - Last Reconciled 09/07/23 by Carlos Raymundo MD albuterol sulfate 90 mcg/actuation 2 puffs inhalation .every 8 hours PRN 30 days amlodipine 5 mg PO DAILY aspirin (Adult Aspirin Regimen) 81 mg PO DAILY atorvastatin 80 mg PO BEDTIME blood pressure monitor As directed blood sugar diagnostic (FreeStyle Lite Strips) Once a day blood-glucose meter (FreeStyle [place] Lite kit) Check Blood Sugar budesonide-formoterol 160-4.5 mcg/actuation (Symbicort) 2 puffs inhalation BID 30 days chorionic gonadotropin, human (Pregnyl) 500 units IM 2XW 10 weeks clopidogrel 75 mg PO DAILY cyclosporine 0.05% (Restasis) 1 drp ophthalmic (eye) ONCE diclofenac sodium 1% 4 grams topical QID hydrochlorothiazide 12.5 mg PO DAILY ibuprofen 600 mg PO TID PRN lancets (FreeStyle Lancets) bid lancets (FreeStyle Lancets) As directed loratadine (Allergy Relief (loratadine)) 10 mg PO DAILY metformin 500 mg PO BID 90 days nortriptyline TAKE 1 TABLET BY MOUTH EVERY NIGHT AT BEDTIME omeprazole 40 mg PO DAILY polyethylene glycol 3350 (Miralax) 17 grams PO BID rifaximin 550 mg PO TID 2 weeks saliva substitute combo no.9 (Biotene Dry Mouth Oral Rinse mouthwash) 15 mL mu cous membrane BID-QID PRN sildenafil 100 mg PO ONCE PRN 30 days HPI HPI Comments History of Present Illness Details 58-year-old gentleman who is here for fo llow-up. He has history of hypertension and has been experiencing chest discomfort. He is describing how pressure-like feeling on the left side of chest which happens randomly. He feels very tired after this and has to lay down. His symptoms has been happening for some time and he is getting them quite frequently. Previously underwent stress testing where he had a hypertensive response to exercise without any significant symptoms. He was started on amlodipine hydrochlorothiazide his blood pressure is improved since. Continues to get chest pains on the left side which are quite concerning. His recently diagnosed with hyperlipidemia as well as diabetes. His hemoglobin A1c is 8. After discussion he was taken for cardiac catheterization. Cardiac catheterization showed multivessel disease including severe LAD as well as 70% circumflex and distal right coronary artery stenosis. We discussed about bypass surgery versus PCI and patient opted for PCI. We treated the LAD with a drug-eluting stent. 09/07/23: He returns for follow-up toda y. Unfortunately had a fall recently breaking ribs on the right side as well as lower back injury. He is recovering from that. He has been using ibuprofen up to b.i.d.. He has some dyspnea with activities but denying any significant chest discomfort like he was getting before LAD PCI. Taking medications regularly. Blood pressure control is good. [facility] Medical History Asthma with COPD COPD (chronic obstructive pulmonary disease) Acute bronchitis and bronchiolitis Dyslipidemia Chronic pain syndrome Knee osteoarthritis Anal pain Arthritis GERD (gastroesophageal reflux disease) Surgical History History of cardiac cath Hx of esophagogastroduodenoscopy Hx of inguinal hernia repair H/O colonoscopy Family History Mother No problems noted. Father Heart attack Social History Household Members: Spouse and Children Housing: House Alcohol intake: former Patient Tobacco Use Status: Former Tobacco user Quit Date: 2019 Years Smoked: 15 +/- e-Cigarette/Vaping Use: Never Used Second Hand Smoke Exposure: No service: No Current occupational status: unemployed Cognitive needs: No Hearing needs: No Vision needs: No Physical Exam Vital Signs: Last Vital Signs Pulse 69 09/07/23 09:09 BP 122/82 09/07/23 09:09 BMI result Body Mass Index 31.8 GENERAL APPEARANCE: in no acute distress, pleasant. NECK: no carotid bruit, no jugular venous distention. SKIN: no suspicious lesions, warm and dry. HEART: no murmurs, regular rate and rhythm. LUNGS: clear to auscultation bilaterally. Ribs tenderness. ABDOMEN: soft, nontender. EXTREMITIES: no edema. PERIPHERAL PULSES: equal. NEUROLOGIC: No gross deficits, AAO X 3 Office Procedures EKG Details: NSR 69/min, Normal EKG, QTc 400 msec. [id number], Complete Assessment & Plan Assessment & Plan (1) Stable angina: Code(s): I20.8 - Other forms of angina pectoris Plan [age] year gentleman with stable angina pectoralis. He is doing well from cardiovascular point of view. Blood pressure control is good. Unfortunately had a fall and he broke ribs on the right side. He is recovering from that and is following with pain management. Same medications for now. Follow-up with us in 4 months. Thank you for allowing me to participate in the care of your patient. Please feel free to contact me if you have any questions. Coding Level of Care Code Est Pt Level 3 (28813) Diagnoses Stable angina I20.8 CPT Codes EKG - CPT: 94174-[id number], Complete ([id number])
[2023-09-07 09:09] VITALS: BP 122/82; PULSE 69; BMI 31.8
== END 2023-09-07 09:24 | disposition home or self-care (01) ==
PROVIDERS: PCP Internal Medicine; Visit Provider Internal Medicine Cardiovascular Disease
DX: I20.8 Other forms of angina pectoris (principal)
CPT/HCPCS: 93010; 99213

== ENCOUNTER → 2023-09-07 09:05 | Outpatient (BNVA) | payer OTHER, SELFPAY | PROVIDERS: PCP Internal Medicine; Visit Provider Internal Medicine Cardiovascular Disease | DX: I20.89 Other forms of angina pectoris (principal) | CPT/HCPCS: 93005; 99212 ==

== ENCOUNTER 2023-09-14 10:42 | Outpatient (AMB) | payer OTHER, SELFPAY ==
--- NOTE | 2023-09-14 10:45 | MHC.OFFVIS ---
Intake Vital Signs 09/14/23 10:46 Height 5 ft 10 in Weight 216 lb 0.848 oz BMI 31.0 BP 136/80 Blood Pressure Location Lt brachial Position Sitting Pulse 75 Intake Visit Reasons: Follow up Intake Note: Virgil presents in the office as a follow up. CC: few GI concerns he would like to discuss with Bryce. Allergies No Known Allergies [No Known Allergies*] Allergy (Verified 09/14/23 10:46) HPI Follow up HPI Details 58 yr old m here for f/u RECAP: He had ongoing pain around the anal area he had sporadic improvements but keeps recurring he eventually got rectiv also been using steroid cream stool is variable, sometimes can be hard, taking fiber supplement BID he has mild abdominal pain, slowly improving he eats barley, wheat bread, drinks water daily colonoscopy-- EGD 11/15/2020--- gastritis, inflammed hemorrhoids, INTERIM: He has been having issues with constipation--goes daily but hard tried prune juice takes metamucil he drinks 6-8 glasses of water daily v mild epigastric pain no nausea or vomiting no rectal bleeding appetite is good overall he fell thru [place] and injured his buttocks, he had a lot of swelling but improved EXAM: GENERAL: The patient is well developed and nontoxic. VITAL SIGNS:see workflow HEENT: Nonicteric sclerae, PERRLA, EOMI. Oropharynx clear. Moist mucous membranes. Conjunctivae appear well perfused. No thyroid mass. CHEST: Chest wall is nontender. HEART: Regular rate and rhythm without murmurs. LUNGS: Clear to auscultation bilaterally. ABDOMEN: Soft, positive bowel sounds, nontender, no organomegaly.no flank tenderness SKIN: No rash, no excessive bruising, petechiae, or purpura. NEUROLOGIC: Cranial nerves II-XII intact without motor/sensory deficit. swelling and induration left anal cheek--mildly tender, A/P: 1/ constipation, hx of anal fissure 2/ possible soft tissue bruising or abscess in left buttock but has been going down PLAN: 1/ cont with high fiber diet and fluid intake --add linaclotide 2/ advised on ice pack x 3 /day refer surgery [facility] Medical History Asthma with COPD COPD (chronic obstructive pulmonary disease) Acute bronchitis and bronchiolitis Dyslipidemia Chronic pain syndrome Knee osteoarthritis Anal pain Arthritis GERD (gastroesophageal reflux disease) Surgical History History of cardiac cath Hx of esophagogastroduodenoscopy Hx of inguinal hernia repair H/O colonoscopy Family History Mother No problems noted. Father Heart attack Social History Household Members: Spouse and Children Housing: House Alcohol intake: former Patient Tobacco Use Status: Former Tobacco user Quit Date: 2019 Smoked: 15 +/- e-Cigarette/Vaping Use: Never Used Second Hand Smoke Exposure: No service: No Current occupational status: unemployed Cognitive needs: No Hearing needs: No Vision needs: No Physical Exam Vital Signs: Last Vital Signs Pulse 75 09/14/23 10:46 BP 136/80 09/14/23 10:46 BMI result Body Mass Index 31.0 Assessment & Plan Assessment & Plan (1) Anal abscess: Code(s): K61.0 - Anal abscess Orders: Referrals General Surgery Referral K61.0 - Anal abscess Medications: New linaclotide 72 mcg PO DAILY 30 caps 3RF Discontinued rifaximin Discontinued Reason: Doctor's Order 550 mg PO TID 42 tabs 0RF 2 weeks Coding Level of Care Code Est Pt Level 3 (10732) Diagnoses Anal abscess K61.0
[2023-09-14 10:46] VITALS: BP 136/80; PULSE 75; BMI 31.0
== END 2023-09-14 11:29 | disposition home or self-care (01) ==
PROVIDERS: PCP Internal Medicine; Visit Provider Internal Medicine Gastroenterology
DX: K61.0 Anal abscess (principal)
CPT/HCPCS: 99213

== ENCOUNTER → 2023-09-14 10:42 | Outpatient (BNVA) | payer OTHER, SELFPAY | PROVIDERS: PCP Internal Medicine; Visit Provider Internal Medicine Gastroenterology | DX: S30.0XXA Contusion of lower back and pelvis, initial encounter (principal); K61.0 Anal abscess | CPT/HCPCS: 99212 ==

== ENCOUNTER 2023-09-14 11:27 | Outpatient (AMB) | payer OTHER, SELFPAY ==
--- NOTE | 2023-09-14 11:29 | A.OFFVIS_ITS ---
Intake Vital Signs 09/14/23 11:31 Weight 217 lb BP 136/80 Blood Pressure Location Rt brachial Position Sitting Intake Visit Reasons: anal abscess Intake Note: Patient referred for anal cyst. Noticed after fall 2 wks ago. Denies bleeding. C/o pain. 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 Presents here because of a fullness and discomfort of the area. The pain has improved but he presents here for further evaluation. Patient whom I saw many months ago for a posterior anal fissure. He states that he had a sphincterotomy done at [facility]. Chart was reviewed patient evaluated [facility] Medical History Asthma with COPD COPD (chronic obstructive pulmonary disease) Acute bronchitis and bronchiolitis Dyslipidemia Chronic pain syndrome Knee osteoarthritis Anal pain Arthritis GERD (gastroesophageal reflux disease) Surgical History History of cardiac cath Hx of esophagogastroduodenoscopy Hx of inguinal hernia repair H/O colonoscopy Family History Mother No problems noted. Father Heart attack Social History Household Members: Spouse and Children Housing: House Alcohol intake: former Patient Tobacco Use Status: Former Tobacco user Quit Date: 2019 Smoked: 15 +/- e-Cigarette/Vaping Use: Never Used Second Hand Smoke Exposure: No service: No Current occupational status: unemployed Cognitive needs: No Hearing needs: No Vision needs: No Physical Exam Vital Signs: Last Vital Signs BP 136/80 09/14/23 11:31 Back/Spine/Pelvis Other: Patient has a significant left medial buttock fullness suggestive of a hematoma/seroma. No external pathology. Risks, benefits, alternatives of aspiration of this area was reviewed the patient included but not limited to bleeding, infection, numbness, pain, scarring and the patient wished to proceed. All questions were answered. Under sterile technique, the area was aspirated and old clotted blood was retrieved. Approximately 5 cc were obtained. Because the remaining blood distal clotted, and able to retrieve any more. Patient tolerated procedure well Assessment & Plan Assessment & Plan (1) Traumatic hematoma of buttock: Code(s): S30.0XXA - Contusion of lower back and pelvis, initial encounter Plan Patient was reassured that this is a resolving hematoma. He was seen approximate 2-3 weeks time. Given local instructions including warm compresses/heating pads, ambulate as much as possible and avoid extreme/strenuous activities. All questions were answered Coding Level of Care Code Est Pt Level 4 (37831) Diagnoses Traumatic hematoma of buttock S30.0XXA
--- NOTE | 2023-09-14 11:29 | MHC.OFFVIS ---
Intake Intake Visit Reasons: anal abscess Allergies No Known Allergies [No Known Allergies*] Allergy (Verified 09/14/23 10:46) PFS Medical History Asthma with COPD COPD (chronic obstructive pulmonary disease) Acute bronchitis and bronchiolitis Dyslipidemia Chronic pain syndrome Knee osteoarthritis Anal pain Arthritis GERD (gastroesophageal reflux disease) Surgical History History of cardiac cath Hx of esophagogastroduodenoscopy Hx of inguinal hernia repair H/O colonoscopy Family History Mother No problems noted. Father Heart attack Social History Household Members: Spouse and Children Housing: House Alcohol intake: former Patient Tobacco Use Status: Former Tobacco user Quit Date: 2019 Years Smoked: 15 +/- e-Cigarette/Vaping Use: Never Used Second Hand Smoke Exposure: No service: No Current occupational status: unemployed Cognitive needs: No Hearing needs: No Vision needs: No Coding
[2023-09-14 11:31] VITALS: BP 136/80
== END 2023-09-14 11:56 | disposition home or self-care (01) ==
LOC: HO.HGS 11:27
PROVIDERS: PCP Internal Medicine; Visit Provider Surgery
DX: S30.0XXA Contusion of lower back and pelvis, initial encounter (principal)
CPT/HCPCS: 99214

== ENCOUNTER 2023-09-22 08:47 | Outpatient (REF) | payer OTHER, SELFPAY ==
[2023-09-22 10:42] LABS: Cholesterol 122 mg/dL (<200); HDL Cholesterol 45 mg/dL (>40); LDL Cholesterol Calculated 62 mg/dL (<100); Triglycerides 79 mg/dL (<150)
[2023-09-22 10:58] LABS: Estimated Average Glucose 100 mg/dL; Hemoglobin A1c % 5.1 % (<6.0)
[2023-09-22 10:59] LABS: TSH reflex Free T4 1.91 uIU/mL (0.32-4.0)
== END 2023-09-22 08:48 | disposition home or self-care (01) ==
LOC: HO.LAB 08:47
PROVIDERS: Internal Medicine Cardiovascular Disease; Internal Medicine Gastroenterology; PCP Internal Medicine; Visit Provider Nurse Practitioner Family
DX: E05.90 Thyrotoxicosis, unspecified without thyrotoxic crisis or storm (principal); E11.9 Type 2 diabetes mellitus without complications
CPT/HCPCS: 36415; 80061; 83036; 84443

== ENCOUNTER 2023-09-30 09:45 | Outpatient (AMB) | payer OTHER, SELFPAY ==
--- NOTE | 2023-09-30 09:48 | MHC.OFFVIS ---
Intake Vital Signs 09/30/23 09:51 Height 5 ft 10 in Weight 217 lb BMI 31.1 BP 118/62 Blood Pressure Location Lt brachial Position Sitting Pulse 75 Pulse Source Pulse Oximeter Pulse Oximetry (%) 99 Oxygen Delivery Method Room Air Intake Visit Reasons: Cough Intake Note: pt is here for follow up and states he feels like a cold in his chest. 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 Allergies No Known Allergies [No Known Allergies*] Allergy (Verified 09/30/23 10:07) Medication List - Last Reconciled 09/30/23 by Jillian Ordaz MD albuterol sulfate 90 mcg/actuation 2 puffs inhalation .every 8 hours PRN 30 days amlodipine 5 mg PO DAILY aspirin (Adult Aspirin Regimen) 81 mg PO DAILY atorvastatin 80 mg PO BEDTIME blood pressure monitor As directed blood sugar diagnostic (FreeStyle Lite Strips) Once a day blood-glucose meter (FreeStyle [place] Lite kit) Check Blood Sugar budesonide-formoterol 160-4.5 mcg/actuation (Symbicort) 2 puffs inhalation BID 30 days chorionic gonadotropin, human (Pregnyl) 500 units IM 2XW 10 weeks clopidogrel 75 mg PO DAILY cyclosporine 0.05% (Restasis) 1 drp ophthalmic (eye) ONCE diclofenac sodium 1% 4 grams topical QID hydrochlorothiazide 12.5 mg PO DAILY ibuprofen 600 mg PO TID PRN lancets (FreeStyle Lancets) bid lancets (FreeStyle Lancets) As directed linaclotide 72 mcg PO DAILY loratadine (Allergy Relief (loratadine)) 10 mg PO DAILY metformin 500 mg PO BID 90 days nortriptyline TAKE 1 TABLET BY MOUTH EVERY NIGHT AT BEDTIME omeprazole 40 mg PO DAILY polyethylene glycol 3350 17 grams PO BID saliva substitute combo no.9 (Biotene Dry Mouth Oral Rinse mouthwash) 15 mL mucous membrane BID-QID PRN sildenafil 100 mg PO ONCE PRN 30 days Do you need a note to return to daycare/school/sports/work: No HPI Cough HPI Details 58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 BRONCHOSPASTIC COMPONENT HE HAS BEEN DOING VERY WELL AND USING SYMBICORT 160-4.5 ONLY 2 PUFFS A DAY, HE HAS ONLY MILD INTERMITTENT COUGH. HE FEELS PRESSURE-LIKE SENSATION IN THE ANTERIOR CHEST OFF AND ON WHICH IS VERY NON DESCRIPTIVE, HE HAD A CHEST X-RAY AND RIB X-RAY VERY RECENTLY WHICH WAS NORMAL. [facility] Medical History Asthma with COPD COPD (chronic obstructive pulmonary disease) Acute bronchitis and bronchiolitis Dyslipidemia Chronic pain syndrome Knee osteoarthritis Anal pain Arthritis GERD (gastroesophageal reflux disease) Surgical History History of cardiac cath Hx of esophagogastroduodenoscopy Hx of inguinal hernia repair H/O colonoscopy Family History Mother No problems noted. Father Heart attack Social History Household Members: Spouse and Children Housing: House Alcohol intake: former Patient Tobacco Use Status: Former Tobacco user Quit Date: 2019 Years Smoked: 15 +/- e-Cigarette/Vaping Use: Never Used Second Hand Smoke Exposure: No service: No Current occupational status: unemployed Cognitive needs: No Hearing needs: No Vision needs: No Review of Systems Const All systems reviewed & are unremarkable except as noted in HPI and below Eyes Reports no additional complaints ENT Reports nasal congestion and Reports nasal discharge Card Denies chest pain at rest, Denies irregular heart rhythm and Denies leg edema Resp Reports as per HPI GI Reports heartburn (GERD symptoms controlled with omeprazole) Reports no additional complaints Musc Reports back pain (Chronic, uses stimulator.) Skin/Breast Reports system reviewed and no additional complaints, except as documented Neuro Reports no additional complaints Psych Reports no additional complaints Physical Exam Vital Signs: Last Vital Signs Pulse 75 09/30/23 09:51 BP 118/62 09/30/23 09:51 Pulse Ox 99 09/30/23 09:51 Oxygen Delivery Method Room Air 09/30/23 09:51 BMI result Body Mass Index 31.1 Const General: healthy appearing, comfortable (But does have frequent cough during conversation.), no acute distress, alert and awake Orientation/consciousness: patient oriented x3 HEENT Head: Yes normal to inspection General nose exam: No nasal polyps present, No nasal discharge present and Other nasal findings present (Mild nasal congestion is noted) Face and sinus: Yes sinuses nontender Mouth: oropharynx normal Throat: Yes posterior oropharynx normal Eyes General: appearance normal, both eyes and all related structures Neck Neck: Yes normal visual inspection, Yes no lymphadenopathy, Yes trachea midline and Yes no JVD Thyroid: Thyroid normal Chest Chest palpation & inspection: normal inspection of the chest, normal palpation of entire chest wall and no tenderness Resp Other: Breath sounds are equal on both sides, slightly distant and prolonged expiratory phase. There is no definite tenderness on the chest. Lungs are clear on both size without any wheezes or crepitations. Cardio Palpation: normal PMI Rate: regular rate Rhythm: regular rhythm Heart sounds: no gallops and no murmurs Peripheral pulses: Peripheral pulses 2+ throughout GI Palpation (GI): Soft to palpation, nontender, No hepatosplenomegaly present and no masses Auscultation: normal bowel sounds Back/Spine/Pelvis Thoracic/Lumbar Spine: thoracic and lumbar spine normal to inspection and thoraco-lumbar ROM limited Skin General skin exam: no rashes or lesions noted Neuro General: patient oriented x3 and no focal motor deficits Cranial nerves: Yes CN's II-XII intact bilaterally Extrem General: Yes normal to inspection, Yes no clubbing, cyanosis or edema and Yes no calf tenderness Psych Appearance: grossly normal and well kempt Speech and movement: Normal speech and movement present Results Reviewed Results Reviewed: I reviewed the he recent rib x-ray and chest x-ray and told him that it was normal. Assessment & Plan Assessment & Plan (1) COPD (chronic obstructive pulmonary disease): Comment: He has past history of smoking but quit 3 years ago. Spirometry in the office showed severe obstructive airway disorder. Last PFT showed moderately severe obstructive airway disorder with good response to bronchodilator therapy. TX : Continue Symbicort 160-4.52 puffs b.i.d , and if symptoms are fully controlled then he may use it only once a day. And use albuterol 2 puffs Q 6 hours p.r.n.. Code(s): J44.9 - Chronic obstructive pulmonary disease, unspecified Coding Level of Care Code Est Pt Level 3 (62090) Diagnoses COPD (chronic obstructive pulmonary disease) J44.9
[2023-09-30 09:51] VITALS: BP 118/62; PULSE 75; O2SAT 99; BMI 31.1
== END 2023-09-30 10:07 | disposition home or self-care (01) ==
PROVIDERS: PCP Internal Medicine; Visit Provider Internal Medicine
DX: J44.9 Chronic obstructive pulmonary disease, unspecified (principal)
CPT/HCPCS: 99213

== ENCOUNTER → 2023-09-30 09:45 | Outpatient (BNVA) | payer OTHER, SELFPAY | PROVIDERS: PCP Internal Medicine; Visit Provider Internal Medicine | DX: J44.9 Chronic obstructive pulmonary disease, unspecified (principal) | CPT/HCPCS: 99212 ==

== ENCOUNTER → 2023-10-01 10:23 | Outpatient (BNV) | payer OTHER, SELFPAY ==
--- NOTE | 2023-10-01 10:23 | AM.OFFVISNUR ---
Intake Intake Visit Reasons: Amb Documentation Allergies No Known Allergies [No Known Allergies*] Allergy (Verified 09/30/23 10:07) Office Procedures Flu Questionnaire Does the patient have a severe egg allergy?: No Does the patient have severe life threatening allergies?: No Does the patient have a fever or illness today?: No Has the patient ever had Guillain-[place] Syndrome?: No Has the patient ever had any past reaction to a flu shot?: No Immunizations flu vacc [id number] 6mos up(PF) 60 mcg(15 mcgx4)/0.5 mL IM syringe Performing Provider: Toño Cortez MD Performing Location: [facility] Medicine Administered by: MATIAS Bar on 10/01/23 10:24 Dose Route Admin Location Dispensed Lot Number Expiration Date NDC Translator And Interpreter 0.5 mL IM Left Deltoid 0.5 mL [id number] 05/15/24 99101-694-07 [facility] V[facility] Given Date VIS Provided VIS Publication Date 10/01/23 Single Vaccine 21 Eligibility Eligibility Date Funding Source Not [facility] Eligible 10/01/23 Private Coding Assessment & Plan Assessment & Plan Orders: Orders Influenza [id number] Immunization Today Z23 - Encounter for immunization
== END ==
PROVIDERS: PCP Internal Medicine
DX: Z23 Encounter for immunization (principal)
CPT/HCPCS: 90471; 90686

== ENCOUNTER 2023-10-06 08:47 | Outpatient (AMB) | payer OTHER, SELFPAY ==
[2023-10-06 09:01] VITALS: BP 148/76; PULSE 69; BMI 31.6
--- NOTE | 2023-10-06 09:01 | MHC.OFFVIS ---
Intake Vital Signs 10/06/23 09:01 Height 5 ft 10 in Weight 220 lb BMI 31.6 BP 148/76 H Blood Pressure Location Rt brachial Position Sitting Pulse 69 Intake Visit Reasons: 3 wk follow up anal abscess Intake Note: Patient here f/u anal abscess. C/o pain and tenderness. Denies oozing pus or bleeding. Does not take pain meds. 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 [facility] Medical History Asthma with COPD COPD (chronic obstructive pulmonary disease) Acute bronchitis and bronchiolitis Dyslipidemia Chronic pain syndrome Knee osteoarthritis Anal pain Arthritis GERD (gastroesophageal reflux disease) Surgical History History of cardiac cath Hx of esophagogastroduodenoscopy Hx of inguinal hernia repair H/O colonoscopy Family History Mother No problems noted. Father Heart attack Social History Household Members: Spouse and Children Housing: House Alcohol intake: former Patient Tobacco Use Status: Former Tobacco user Quit Date: 2019 Smoked: 15 +/- e-Cigarette/Vaping Use: Never Used Second Hand Smoke Exposure: No service: No Current occupational status: unemployed Cognitive needs: No Hearing needs: No Vision needs: No Physical Exam Vital Signs: Last Vital Signs Pulse 69 10/06/23 09:01 BP 148/76 H 10/06/23 09:01 BMI result Body Mass Index 31.6 Back/Spine/Pelvis Other: Exam demonstrates significant decrease in size of left medial buttock hematoma. No external evidence of infection or cellulitis. Assessment & Plan Assessment & Plan (1) Traumatic hematoma of buttock: Code(s): S30.0XXA - Contusion of lower back and pelvis, initial encounter Plan Patient was reassured that this will resolve completely in time. All questions were answered. He will follow-up p.r.n.. No interventions warranted at this time. Coding Level of Care Code Est Pt Level 3 (73158) Diagnoses Traumatic hematoma of buttock S30.0XXA
== END 2023-10-06 09:21 | disposition home or self-care (01) ==
PROVIDERS: PCP Internal Medicine; Visit Provider Surgery
DX: S30.0XXA Contusion of lower back and pelvis, initial encounter (principal)
CPT/HCPCS: 99213

== ENCOUNTER 2023-10-06 08:47 | Outpatient (REF) | payer OTHER, SELFPAY ==
[2023-10-06 10:42] LABS: Hematocrit 41.8 % (42.0-52.0); Hemoglobin 13.5 g/dl (14.0-18.0); Mean Corpuscular HGB Conc 32.3 g/dl (31.0-36.0); Mean Corpuscular Volume 89.7 fL (80.0-98.0); Mean Platelet Volume 10.2 fL (9.4-12.4); Platelet Count 321 X10*3/uL (160-400); Red Blood Count 4.66 X10*6/uL (4.60-5.80); Red Cell Distribution Width 12.2 % (11.0-16.0); White Blood Count 8.2 X10*3/uL (4.8-10.8)
[2023-10-06 10:49] LABS: Estimated Average Glucose 105 mg/dL; Hemoglobin A1c % 5.3 % (<6.0)
[2023-10-06 11:01] LABS: Alanine Aminotransferase 40 U/L (0-40); Albumin Level 4.4 g/dL (3.5-5.0); Alkaline Phosphatase 106 U/L (39-117); Anion Gap 11 (12-20); Aspartate Amino Transferase 19 U/L (5-37); Bilirubin Direct 0.2 mg/dL (0.0-0.5); Bilirubin Total 0.5 mg/dL (0.0-1.0); Blood Urea Nitrogen 15 mg/dL (9-16); Calcium 9.2 mg/dL (8.4-10.2); Carbon Dioxide 31 mmol/L (22-29); Chloride 103 mmol/L (96-108); Cholesterol 125 mg/dL (<200); Estimated Glomerular Filt Rate > 60; Glucose Random 91 mg/dL (60-115); HDL Cholesterol 41 mg/dL (>40); LDL Cholesterol Calculated 64 mg/dL (<100); Potassium 3.8 mmol/L (3.3-5.1); Sodium 141 mmol/L (135-145); Total Protein 7.4 g/dL (6.5-8.0); Triglycerides 100 mg/dL (<150)
[2023-10-06 11:22] LABS: Prostate Specific Antigen Scr 0.42 ng/mL (<0.05-4.0)
== END 2023-10-06 08:48 | disposition home or self-care (01) ==
LOC: HO.LAB 08:47
PROVIDERS: Absent Provider Internal Medicine; PCP Internal Medicine; Visit Provider Surgery
DX: I10 Essential (primary) hypertension (principal); E11.9 Type 2 diabetes mellitus without complications; S30.0XXA Contusion of lower back and pelvis, initial encounter; X58.XXXA Exposure to other specified factors, initial encounter; Y93.9 Activity, unspecified; Y92.9 Unspecified place or not applicable; Y99.9 Unspecified external cause status
CPT/HCPCS: 36415; 80048; 80061; 80076; 83036; 84153; 85027; 99212

== ENCOUNTER 2023-11-23 11:04 | Outpatient (AMB) | payer OTHER, SELFPAY ==
--- NOTE | 2023-11-23 11:14 | MHC.PC.OV ---
Vital Signs 11/23/23 11:16 Height 5 ft 10 in Weight 217 lb 2 oz BMI 31.2 BP 130/80 Blood Pressure Location Lt brachial Position Sitting Pulse 74 Pulse Source Pulse Oximeter Pulse Oximetry (%) 95 Oxygen Delivery Method Room Air Intake Visit Reasons: follow up ( Labs ) Intake Note: Patient is here to follow up on lab results. 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: No Fifth Hand: Not Required per policy Accompanied by: Self / Same As Patient Allergies No Known Allergies [No Known Allergies*] Allergy (Verified 11/23/23 16:57) Medication List - Last Reconciled 11/23/23 by Toño Cortez MD albuterol sulfate 90 mcg/actuation 2 puffs inhalation .every 8 hours PRN 30 days amlodipine 5 mg PO DAILY aspirin (Adult Aspirin Regimen) 81 mg PO DAILY atorvastatin 80 mg PO BEDTIME blood sugar diagnostic (FreeStyle Lite Strips) Once a day blood-glucose meter (FreeStyle [place] Lite kit) Check Blood Sugar chorionic gonadotropin, human (Pregnyl) 500 units IM 2XW 10 weeks clopidogrel 75 mg PO DAILY cyclosporine 0.05% (Restasis) 1 drp ophthalmic (eye) ONCE diclofenac sodium 1% 4 grams topical QID hydrochlorothiazide 12.5 mg PO DAILY lancets (FreeStyle Lancets) bid linaclotide 72 mcg PO DAILY loratadine (Allergy Relief (loratadine)) 10 mg PO DAILY metformin 500 mg PO BID 90 days nortriptyline 10 mg PO BEDTIME omeprazole 40 mg PO DAILY polyethylene glycol 3350 17 grams PO BID saliva substitute combo no.9 (Biotene Dry Mouth Oral Rinse mouthwash) 15 mL mucous membrane BID-QID PRN sildenafil 100 mg PO ONCE PRN 30 days Tobacco use date assessed: 11/23/23 Dental Screening Dental Screen Date: 11/23/23 Did you have a dental visit in the last 12 months?: Yes Did you have a dental problem in the last 6 months where you did not have access to dental care?: No Was dental information given to patient?: Patient has dentist HPI follow up ( Labs ) HPI Details 58-year-old male presents to the office to discuss his chronic medical conditions. Patient had blood work done and he would like to know the results. He is compliant with medications and able to do all activities of daily living. Patient continues to have pain in the left knee. He has been diagnosed with osteoarthritis and has received steroid injections in the past. He is very reluctant to get any surgical procedures done. This is preventing him from walking. [facility] Medical History Asthma with COPD COPD (chronic obstructive pulmonary disease) Acute bronchitis and bronchiolitis Dyslipidemia Chronic pain syndrome Knee osteoarthritis Anal pain Arthritis GERD (gastroesophageal reflux disease) Surgical History History of cardiac cath Hx of esophagogastroduodenoscopy Hx of inguinal hernia repair H/O colonoscopy Family History Mother No problems noted. Father Heart attack Social History Household Members: Spouse and Children Housing: House Alcohol intake: former Patient Tobacco Use Status: Former Tobacco user Quit Date: 2019 Years Smoked: 15 +/- e-Cigarette/Vaping Use: Never Used Second Hand Smoke Exposure: No service: No Current occupational status: unemployed Cognitive needs: No Hearing needs: No Vision needs: No Questionnaire PHQ-9 Over the last 2 weeks, how often have you been bothered by any of the following problems? 1. Little interest or pleasure in doing things: not at all 2. Feeling down, depressed, or hopeless: not at all 3. Trouble falling or staying asleep, or sleeping too much: not at all 4. Feeling tired or having little energy: not at all 5. Poor appetite or overeating: not at all 6. Feeling bad about yourself - or that you are a failure or have let yourself or your family down: not at all 7. Trouble concentrating on things, such as reading the newspaper or watching television: not at all 8. Moving or speaking so slowly that other people could have noticed. Or the opposite - being so fidgety or restless that you have been moving around a lot more than usual: not at all 9. Thoughts that you would be better off or of hurting yourself in some way: not at all Total score: 0 Depression Screening Interpretation: Negative Depression Screening Done: Yes Source: Developed by Drs. Marcia Nevarez Kurt Kroenke and colleagues, with an educational horacio from [employer]. Thrive Questionnaire Date Thrive assessed: 11/23/23 I am a: Patient What is your living situation today?: I have a steady place to live Within the past 12 months, did the food you bought not last and you didn't have the money to get more?: Never true Within the past 12 months, did you worry whether your food would run out before you got money to buy more?: Never true Do you have trouble paying for medicines?: No Do you have trouble getting transportation to medical appointments?: No Do you have trouble paying your heating and electricity bill?: No Do you have trouble taking care of your child, family member or friend?: No Do you have trouble with day-to-day activities such as bathing, preparing meals, shopping, managing finances, etc.?: No Are you currently unemployed and looking for a job?: No Are you interested in more education?: No Currently or been in a relationship where the following occur: no concerns reported AUDIT C Alcohol Use Questionnaire (AUDIT-C) 1. How often do you have a drink containing alcohol?: Never Total Score: 0 XOCHITL-7 AMB Questionnaire XOCHITL-7 Date XOCHITL - 7 assessed: 11/23/23 Feeling nervous, anxious, or on edge: 0 = Not at all Not being able to stop or control worryin = Not at all Worrying too much about different things: 0 = Not at all Trouble relaxin = Not at all Being so restless that it is hard to sit still: 0 = Not at all Becoming easily annoyed or irritable: 0 = Not at all Feeling afraid as if something awful might happen: 0 = Not at all Total XOCHITL-7 score (0-4 normal; 5-9 mild; 10-14 moderate; 15-21 severe): 0 Source: Developed by Drs. Chino Haji, Marcia Perales, Evans Mays and colleagues, with an educational horacio from [employer]. Physical exam (Primary Care) Vital Signs: Last Vital Signs Pulse 74 11/23/23 11:16 BP 130/80 11/23/23 11:16 Pulse Ox 95 11/23/23 11:16 Oxygen Delivery Method Room Air 11/23/23 11:16 BMI result Body Mass Index 31.2 Tobacco/Smoking Status: Tobacco use Status Tobacco use date assessed 11/23/23 11/23/23 11:22 Patient Tobacco Use Status Former Tobacco user 11/23/23 11:22 e-Cigarette/Vaping Use Never Used 11/23/23 11:22 PHQ-9: PHQ-9 Score PHQ-9: Total score 0 11/23/23 11:22 Depression Screening Interpretation: Negative Thrive Assessment: Date of Thrive Assessment Date Thrive assessed 11/23/23 11/23/23 11:22 Currently or been in a relationship where the following occur: no concerns reported Const General: cooperative and healthy appearing Nutritional Appearance: well nourished Orientation/consciousness: patient oriented x3 Limitations: no limitations HENMT Head: Yes normal to inspection Eyes General: appearance normal, both eyes and all related structures Neck Neck: Yes normal visual inspection Chest Chest palpation & inspection: normal palpation of entire chest wall Resp Effort & Inspection: normal respiratory effort Neuro General: patient oriented x3 Assessment and Plan Assessment & Plan (1) Diabetes mellitus: Code(s): E11.9 - Type 2 diabetes mellitus without complications Plan: A1c is 5.6. Patient was encouraged to continue the diet and exercise. Cholesterol is also in range. Medications: Refilled loratadine (Allergy Relief (loratadine)) 10 mg PO DAILY 90 tabs 1RF metformin 500 mg PO BID 180 tabs 1RF 90 days E11.9 - Type 2 diabetes mellitus without complications Coding Level of Care Code Est Pt Level 4 (44960) Diagnoses Diabetes mellitus E11.9
[2023-11-23 11:16] VITALS: BP 130/80; PULSE 74; O2SAT 95; BMI 31.2
== END 2023-11-23 12:07 | disposition home or self-care (01) ==
PROVIDERS: PCP Internal Medicine; Visit Provider Internal Medicine
DX: E11.9 Type 2 diabetes mellitus without complications (principal)
CPT/HCPCS: 99214

== ENCOUNTER 2024-01-11 09:17 | Outpatient (AMB) | payer OTHER, SELFPAY ==
--- NOTE | 2024-01-11 09:25 | MHC.OFFVIS ---
Intake Vital Signs 01/11/24 09:55 Height 5 ft 10 in Weight 209 lb 7.026 oz BMI 30.0 BP 137/67 Blood Pressure Location Lt brachial Position Sitting Pulse 71 Intake Visit Reasons: 4 month follow up abscess Intake Note: Virgil presents in the office as a 4 month follow up. CC: HE states that he is still having issues with his bowel movements. Constipation on and off that he has dealt with for a long time. 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 Required: No Allergies No Known Allergies [No Known Allergies*] Allergy (Verified 01/11/24 09:57) HPI 4 month follow up abscess HPI Details 58 yr old m here for f/u RECAP: He had ongoing pain around the anal area he had sporadic improvements but keeps recurring he eventually got rectiv also been using steroid cream stool is variable, sometimes can be hard, taking fiber supplement BID he has mild abdominal pain, slowly improving he eats barley, wheat bread, drinks water daily colonoscopy-- EGD 11/15/2020--- gastritis, inflammed hemorrhoids, INTERIM: still has issues with constipation, incomplete does not like metamucil feels better effect with prune no nausea or vomiting no rectal bleeding appetite is good overall EXAM: GENERAL: The patient is well developed and nontoxic. VITAL SIGNS:see workflow HEENT: Nonicteric sclerae, PERRLA, EOMI. Oropharynx clear. Moist mucous membranes. Conjunctivae appear well perfused. No thyroid mass. CHEST: Chest wall is nontender. HEART: Regular rate and rhythm without murmurs. LUNGS: Clear to auscultation bilaterally. ABDOMEN: Soft, positive bowel sounds, nontender, no organomegaly.no flank tenderness SKIN: No rash, no excessive bruising, petechiae, or purpura. NEUROLOGIC: Cranial nerves II-XII intact without motor/sensory deficit. A/P: 1/ constipation, hx of anal fissure, PLAN: 1/ cont with high fiber diet--can take fiber gummies or fiber wafers and increase fluid intake --add trulance [facility] Medical History Asthma with COPD COPD (chronic obstructive pulmonary disease) Acute bronchitis and bronchiolitis Dyslipidemia Chronic pain syndrome Knee osteoarthritis Anal pain Arthritis GERD (gastroesophageal reflux disease) Surgical History History of cardiac cath Hx of esophagogastroduodenoscopy Hx of inguinal hernia repair H/O colonoscopy Family History Mother No problems noted. Father Heart attack Social History Household Members: Spouse and Children Housing: House Alcohol intake: former Patient Tobacco Use Status: Former Tobacco user Quit Date: 2019 Smoked: 15 +/- e-Cigarette/Vaping Use: Never Used Second Hand Smoke Exposure: No service: No Current occupational status: unemployed Cognitive needs: No Hearing needs: No Vision needs: No Physical Exam Vital Signs: Last Vital Signs Pulse 71 01/11/24 09:55 BP 137/67 01/11/24 09:55 BMI result Body Mass Index 30.0 Assessment & Plan Assessment & Plan (1) Constipation: Code(s): K59.00 - Constipation, unspecified Qualifiers: Constipation type: unspecified constipation type Qualified Code(s): K59.00 - Constipation, unspecified Plan A/P: 1/ constipation, hx of anal fissure, PLAN: 1/ cont with high fiber diet--can take fiber gummies or fiber wafers and increase fluid intake --add trulance Medications: New plecanatide (Trulance) 3 mg PO DAILY 30 tabs 3RF Discontinued linaclotide Discontinued Reason: Doctor's Order 72 mcg PO DAILY 30 caps 3RF Coding Level of Care Code Est Pt Level 3 (52821) Diagnoses Constipation, unspecified constipation type K59.00 Constipation type: unspecified constipation type
[2024-01-11 09:55] VITALS: BP 137/67; PULSE 71
== END 2024-01-11 10:26 | disposition home or self-care (01) ==
PROVIDERS: PCP Internal Medicine; Visit Provider Internal Medicine Gastroenterology
DX: K59.00 Constipation, unspecified (principal)
CPT/HCPCS: 99213

== ENCOUNTER 2024-01-11 09:17 | Outpatient (AMB) | payer OTHER, SELFPAY ==
[2024-01-11 09:19] VITALS: BP 140/80; PULSE 75; BMI 30.5
--- NOTE | 2024-01-11 09:19 | A.OFFVIS_ITS ---
Intake Vital Signs 01/11/24 09:19 Height 5 ft 10 in Weight 212 lb 8.41 oz BMI 30.5 BP 140/80 H Blood Pressure Location Lt brachial Position Sitting Pulse 75 Pulse Source Pulse Oximeter Intake Visit Reasons: 4M follow up Intake Note: pt ikts here for 4 mnth f/up pt states that he its doing fine. 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 Accompanied by: Self / Same As Patient Allergies No Known Allergies [No Known Allergies*] Allergy (Verified 01/11/24 09:57) Medication List - Last Reconciled 01/11/24 by Carlos Raymundo MD albuterol sulfate 90 mcg/actuation 2 puffs inhalation .every 8 hours PRN 30 days amlodipine 5 mg PO DAILY aspirin 81 mg PO DAILY atorvastatin 80 mg PO BEDTIME blood sugar diagnostic (FreeStyle Lite Strips) Once a day blood-glucose meter (FreeStyle [place] Lite kit) Check Blood Sugar chorionic gonadotropin, human (Pregnyl) 500 units IM 2XW 10 weeks clopidogrel 75 mg PO DAILY cyclosporine 0.05% (Restasis) 1 drp ophthalmic (eye) ONCE hydrochlorothiazide 12.5 mg PO DAILY lancets (FreeStyle Lancets) bid linaclotide 72 mcg PO DAILY loratadine (Allergy Relief (loratadine)) 10 mg PO DAILY metformin 500 mg PO BID 90 days nortriptyline 10 mg PO BEDTIME omeprazole 40 mg PO DAILY sildenafil 100 mg PO ONCE PRN 30 days sumatriptan succinate take 1 tab at onset of headache; if no relief may repeat 1 tab after at least 2 hrs; max = 4 tabs/24 hr PO HPI HPI Comments History of Present Illness Details 58-year-old gentleman who is here for fo llow-up. He has history of hypertension and has been experiencing chest discomfort. He is describing how pressure-like feeling on the left side of chest which happens randomly. He feels very tired after this and has to lay down. His symptoms has been happening for some time and he is getting them quite frequently. Previously underwent stress testing where he had a hypertensive response to exercise without any significant symptoms. He was started on amlodipine hydrochlorothiazide his blood pressure is improved since. Continues to get chest pains on the left side which are quite concerning. His recently diagnosed with hyperlipidemia as well as diabetes. His hemoglobin A1c is 8. After discussion he was taken for cardiac catheterization. Cardiac catheterization showed multivessel disease including severe LAD as well as 70% circumflex and distal right coronary artery stenosis. We discussed about bypass surgery versus PCI and patient opted for PCI. We treated the LAD with a drug-eluting stent. 09/07/23: He returns for follow-up toda y. Unfortunately had a fall recently breaking ribs on the right side as well as lower back injury. He is recovering from that. He has been using ibuprofen up to b.i.d.. He has some dyspnea with activities but denying any significant chest discomfort like he was getting before LAD PCI. Taking medications regularly. Blood pressure control is good. 01/11/24: He returns for follow-up. He has been doing well. Blood pressure is elevated. He has been taking medications regularly. He also has been quite compliant with salt intake and exercising regularly. He is taking sumatriptan off and on for headaches. I have advised him not to take sumatriptan anymore. [facility] Medical History Asthma with COPD COPD (chronic obstructive pulmonary disease) Acute bronchitis and bronchiolitis Dyslipidemia Chronic pain syndrome Knee osteoarthritis Anal pain Arthritis GERD (gastroesophageal reflux disease) Surgical History History of cardiac cath Hx of esophagogastroduodenoscopy Hx of inguinal hernia repair H/O colonoscopy Family History Mother No problems noted. Father Heart attack Social History Household Members: Spouse and Children Housing: House Alcohol intake: former Patient Tobacco Use Status: Former Tobacco user Quit Date: 2019 Years Smoked: 15 +/- e-Cigarette/Vaping Use: Never Used Second Hand Smoke Exposure: No service: No Current occupational status: unemployed Cognitive needs: No Hearing needs: No Vision needs: No Review of Systems Const Denies chills, Denies fatigue, Denies fever(s), Denies frequent falls, Denies weakness, Denies weight gain and Denies weight loss ENT Denies dizziness Card Denies chest pain, Denies leg edema, Denies lightheadedness, Denies palpitations, Denies dyspnea and Denies dyspnea on exertion Resp Denies cough, Denies dyspnea and Denies dyspnea on exertion GI Denies hematochezia Musc Denies abnormal gait, Denies muscle weakness, Denies numbness, Denies radiating pain into limb and Denies tingling Neuro Denies abnormal gait, Denies dizziness, Denies frequent falls, Denies numbness, Denies tingling and Denies weakness Endo Denies fatigue and Denies palpitations Physical Exam Vital Signs: Last Vital Signs Pulse 75 01/11/24 09:19 BP 140/80 H 01/11/24 09:19 BMI result Body Mass Index 30.5 GENERAL APPEARANCE: in no acute distress, pleasant. NECK: no carotid bruit, no jugular venous distention. SKIN: no suspicious lesions, warm and dry. HEART: no murmurs, regular rate and rhythm. LUNGS: clear to auscultation bilaterally. Ribs tenderness. ABDOMEN: soft, nontender. EXTREMITIES: no edema. PERIPHERAL PULSES: equal. NEUROLOGIC: No gross deficits, AAO X 3 Office Procedures EKG Details: Error, should not be billed for EKG [id number], Complete Assessment & Plan Assessment & Plan (1) Essential hypertension: Code(s): I10 - Essential (primary) hypertension (2) Stable angina: Code(s): I20.8 - Other forms of angina pectoris Plan Pleasant 58 year gentleman who is here for follow-up. He has known history of coronary disease. Clinically stable currently. Occasionally gets left arm discomfort when he is under stress but does not get any symptoms during exercise. I think he is stable currently. Continue aspirin and Plavix as before. Blood pressure is mildly elevated. I have advised him to increase amlodipine to 10 mg daily. Will send a script for him. I have advised him not to use sumatriptan given his known history of coronary disease and hypertension. Thank you for allowing me to participate in the care of your patient. Please feel free to contact me if you have any questions. Medications: New amlodipine 10 mg PO DAILY 90 tabs 3RF I10 - Essential (primary) hypertension Discontinued amlodipine Discontinued Reason: Doctor's Order 5 mg PO DAILY 90 tabs 3RF sumatriptan succinate Discontinued Reason: Doctor's Order take 1 tab at onset of headache; if no relief may repeat 1 tab after at least 2 hrs; max = 4 tabs/24 hr PO 20 tabs 0RF Coding Level of Care Code Est Pt Level 3 (62446) Diagnoses Essential hypertension I10 Stable angina I20.8 CPT Codes EKG - CPT: 97244-[id number], Complete ([id number])
== END 2024-01-11 09:50 | disposition home or self-care (01) ==
PROVIDERS: PCP Internal Medicine; Visit Provider Internal Medicine Cardiovascular Disease
DX: I10 Essential (primary) hypertension (principal); I20.89 Other forms of angina pectoris
CPT/HCPCS: 93010; 99213

== ENCOUNTER → 2024-01-11 09:17 | Outpatient (BNVA) | payer OTHER, SELFPAY | PROVIDERS: PCP Internal Medicine; Visit Provider Internal Medicine Gastroenterology | DX: K59.00 Constipation, unspecified (principal); I10 Essential (primary) hypertension; I20.89 Other forms of angina pectoris | CPT/HCPCS: 93005; 99212 ==

== ENCOUNTER 2024-01-12 13:32 | Outpatient (AMB) | payer OTHER, SELFPAY ==
--- NOTE | 2024-01-12 13:33 | MHC.OFFVIS ---
Intake Intake Visit Reasons: 4M Follow Up(VM Confirmed) Intake Note: Patient is Present for Telephone Follow Up Urology Med: Sildenafil Antibiotic Allergy: None Blood Thinner: Aspirin Allergies No Known Allergies [No Known Allergies*] Allergy (Verified 01/11/24 09:57) HPI HPI Comments History of Present Illness Details Virgil is a [place]. He is a patient of Dr. Coy. He is seen for the following urologic conditions - hypogonadism - erectile dysfunction - male infertility Telemedicine evaluation 15 minute consultation [employer] pj Video attempted Continue good effect from PDE5 Would like testosterone checked Previous did respond to letrozole Prescription provided 06/07 cardiac catheterization showed multivessel disease including severe LAD as well as 70% circumflex and distal right coronary artery stenosis - with Dr Jensen Previously - Has undergone repeat semen analysis - Has been on hCG 500 IU 2 times a week - was able to get and had a baby girl 01/08 Hypogonadism: He presents today for further evaluation and followup of his hypogonadism. Initial symptoms include erectile dysfunction Yes decreased libido Yes change in mood/depression Yes in muscle size/strength Yes increased fatigue/malaise Yes increased abdominal fat No tender breasts/gynecomastia No hair loss No osteopenia No The onset of symptoms has been gradual. Erectile status baseline VIRGIE Score 06/04 - T 216 FSH 14 Prolactin 31, T195, 08/05 325, 11/04 487, 05/06 80 - 10/08 P 0.4 Prior therapy clomiphene - Elevated estradiol with side effects Side effect with cialis - muscle weakness - 5mg Male Infertility: Male infertility Normalized T Start hcg 750iu 2x a week Repeat semen analysis in 3 months The patient presents for further evaluation and management of infertility. Number of pregnancies with current or prior partners current, 0, prior, 0. Current partner prior (s) no prior pregancnies. They have been involved with their partner in unprotected intercourse 6 - 12 months sexual frequency 1x/week ovulation timing with basal temperature measuring No erectile function satisfactory ejaculation routinely occurs semen quality white prior contraceptive use never used Associated conditions history of genital trauma/torsion No history of catheterization No diabetes No gynecomastia No heat exposure (hot tub) No cannabis use No STI (gonorrhea/Chlamydia) No pelvic/spinal trauma No exogenous steroid use No exposure to radiation/chemotherapy No tecticular cancer No varicocele No congenital absence of the vasa No PFSH Medical History Asthma with COPD COPD (chronic obstructive pulmonary disease) Acute bronchitis and bronchiolitis Dyslipidemia Chronic pain syndrome Knee osteoarthritis Anal pain Arthritis GERD (gastroesophageal reflux disease) Surgical History History of cardiac cath Hx of esophagogastroduodenoscopy Hx of inguinal hernia repair H/O colonoscopy Family History Mother No problems noted. Father Heart attack Social History Household Members: Spouse and Children Housing: House Alcohol intake: former Patient Tobacco Use Status: Former Tobacco user Quit Date: 2019 Smoked: 15 +/- e-Cigarette/Vaping Use: Never Used Second Hand Smoke Exposure: No service: No Current occupational status: unemployed Cognitive needs: No Hearing needs: No Vision needs: No Review of Systems Const All systems reviewed & are unremarkable except as noted in HPI and below Reports no additional complaints Resp Reports no additional complaints GI Reports no additional complaints Reports as per HPI Musc Reports no additional complaints Physical Exam Telemedicine evaluation Appropriate responses Regular breathing rate and rhythm HEENT Head: Yes normal to inspection Ears: hearing grossly normal bilaterally Eyes General: appearance normal, both eyes and all related structures Neck Neck: Yes normal visual inspection Chest Chest palpation & inspection: normal inspection of the chest Resp Effort & Inspection: normal respiratory effort and able to speak in complete sentences Assessment & Plan Assessment & Plan (1) Erectile dysfunction associated with type 2 diabetes mellitus: Code(s): E11.69 - Type 2 diabetes mellitus with other specified complication; N52.1 - Erectile dysfunction due to diseases classified elsewhere Plan Restart letrozole 3 month follow-up labs Orders: Orders Complete Blood Count no Diff 3 Months E29.1 - Testicular hypofunction Testosterone, Total 3 Months E29.1 - Testicular hypofunction Prostate Specific Antigen 3 Months E29.1 - Testicular hypofunction Medications: New letrozole 2.5 mg PO DAILY 30 tabs 2RF 30 days Refilled sildenafil administer 60 minutes before intended activity 100 mg PO ONCE PRN 30 tabs 1RF sexual activity 30 days N52.01 - Erectile dysfunction due to arterial insufficiency Patient Instructions: Imaging studies, laboratory and physical exam results were discussed and reviewed in detail. No major barriers to patient understanding were identified. An opportunity to ask questions regarding the treatment plan was provided. All questions were answered. The patient expressed understanding and agreement with the above treatment plan. The patient is aware they should contact our office by phone for worsening of their current condition or the appearance of new urologic symptoms. Compliance is encouraged with any medications and followup testing that is ordered. It is a privilege to participate in the urologic care of your patient. If you have any questions or concerns regarding treatment for the above conditions, or other urologic issues, please do not hesitate to contact me. The office telephone contact is [phone]. This note is constructed using voice recognition software. While every effort has been made to ensure accuracy pipe production worker errors may have been included. Yours sincerely, Dr José Miguel Mcgraw MD, [facility] - Urology Providers of Expert, Compassionate Care for the Genitourinary System Telehealth Telehealth Location of provider rendering services: practice address Location of patient: address on file Patient Identification confirmed using: Name, : Yes Telehealth method: video Patient verbally consented to treatment: Yes Patient verbally consented to billing insurance company: Yes Patient informed of any privacy concerns related to visit: Yes Coding Level of Care Code Tele Est Pt Level 4 (46163) Diagnoses Erectile dysfunction associated with type 2 diabetes mellitus E11.69; N52.1
== END 2024-01-12 14:19 | disposition home or self-care (01) ==
LOC: HO.HUSH 13:32
PROVIDERS: PCP Internal Medicine; Visit Provider Urology
DX: E11.69 Type 2 diabetes mellitus with other specified complication (principal); N52.1 Erectile dysfunction due to diseases classified elsewhere
CPT/HCPCS: 99214

== ENCOUNTER → 2024-01-12 13:32 | Outpatient (BNVA) | payer OTHER, SELFPAY | PROVIDERS: PCP Internal Medicine; Visit Provider Urology ==

== ENCOUNTER 2024-04-20 14:15 | Outpatient (AMB) | payer OTHER, SELFPAY ==
--- NOTE | 2024-04-20 14:19 | MHC.PC.OV ---
Vital Signs 04/20/24 14:24 Height 5 ft 10 in Weight 202 lb BMI 29.0 BP 110/68 Blood Pressure Location Lt brachial Position Sitting Pulse 72 Pulse Source Pulse Oximeter Pulse Oximetry (%) 95 Oxygen Delivery Method Room Air Intake Visit Reasons: 3 month f/u arthritis fingers/ toe nail fungus Intake Note: Patient is here to follow up on DM, Asthma, COPD, Arthritis in fingers and possible Toenail fungus. Steel Rule Die Maker Required: No Block Mechanic: Present Accompanied by: Spouse Allergies No Known Allergies [No Known Allergies*] Allergy (Verified 04/20/24 15:06) Medication List - Last Reconciled 04/20/24 by Toño Cortez MD albuterol sulfate 90 mcg/actuation 2 puffs inhalation .every 8 hours PRN 30 days amlodipine 10 mg PO DAILY aspirin 81 mg PO DAILY atorvastatin 80 mg PO BEDTIME blood sugar diagnostic (FreeStyle Lite Strips) Once a day blood-glucose meter (FreeStyle [place] Lite kit) Check Blood Sugar clopidogrel 75 mg PO DAILY cyclosporine 0.05% (Restasis) 1 drp ophthalmic (eye) ONCE fluorometholone 0.1% drps ophthalmic (eye) hydrochlorothiazide 12.5 mg PO DAILY lancets (FreeStyle Lancets) bid letrozole 2.5 mg PO DAILY 30 days loratadine (Allergy Relief (loratadine)) 10 mg PO DAILY metformin 500 mg PO BID 90 days omeprazole 40 mg PO DAILY sildenafil 100 mg PO ONCE PRN 30 days Tobacco use date assessed: 11/23/23 Dental Screening Dental Screen Date: 11/23/23 HPI 3 month f/u arthritis fingers/ toe nail fungus HPI Details 59-year-old male presents to the office to discuss his chronic medical conditions. Patient is reporting symptoms of pain in both his hands and right knee. He has history of arthritis. Patient had received a steroid injection in the right knee in the past. He is able to function and do activities of daily living. Blood sugars are in range. 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 PENDING SALE TO [facility] Medical History Asthma with COPD COPD (chronic obstructive pulmonary disease) Acute bronchitis and bronchiolitis Dyslipidemia Chronic pain syndrome Knee osteoarthritis Anal pain Arthritis GERD (gastroesophageal reflux disease) Surgical History History of cardiac cath Hx of esophagogastroduodenoscopy Hx of inguinal hernia repair H/O colonoscopy Family History Mother No problems noted. Father Heart attack Social History Household Members: Spouse and Children Housing: House Alcohol intake: former Patient Tobacco Use Status: Former Tobacco user Years Smoked: 15 +/- e-Cigarette/Vaping Use: Never Used Second Hand Smoke Exposure: No service: No Current occupational status: unemployed Cognitive needs: No Hearing needs: No Vision needs: No Questionnaire Thrive Questionnaire Date Thrive assessed: 11/23/23 XOCHITL-7 AMB Questionnaire XOCHITL-7 Date XOCHITL - 7 assessed: 11/23/23 Source: Developed by Drs. Chino Haji, Marcia Perales, Evans Mays and colleagues, with an educational horacio from [employer]. Physical exam (Primary Care) Vital Signs: Last Vital Signs Pulse 72 04/20/24 14:24 BP 110/68 04/20/24 14:24 Pulse Ox 95 04/20/24 14:24 Oxygen Delivery Method Room Air 04/20/24 14:24 BMI result Body Mass Index 29.0 Tobacco/Smoking Status: Tobacco use Status Tobacco use date assessed 11/23/23 04/20/24 14:20 Patient Tobacco Use Status Former Tobacco user 04/20/24 14:20 e-Cigarette/Vaping Use Never Used 04/20/24 14:20 Thrive Assessment: Date of Thrive Assessment Date Thrive assessed 11/23/23 04/20/24 14:20 Const General: cooperative and healthy appearing Nutritional Appearance: well nourished Orientation/consciousness: patient oriented x3 Limitations: no limitations HENMT Head: Yes normal to inspection Eyes General: appearance normal, both eyes and all related structures Neck Neck: Yes normal visual inspection Chest Chest palpation & inspection: normal palpation of entire chest wall Resp Effort & Inspection: normal respiratory effort Neuro General: patient oriented x3 Results AMB Hemoglobin A1c AMB Hemoglobin A1c 5.2 % Last Edit by MATIAS Jacobs on 04/20/24 14:44 Results Reviewed Results Reviewed: Laboratory Last Values Hgb A1c (Clinic) 5.2 % (4.0-6.0) 04/20/24 14:20 Assessment and Plan Assessment & Plan (1) Diabetes mellitus: Code(s): E11.9 - Type 2 diabetes mellitus without complications Plan: A1c is in range. Continue medications at same dosage. (2) Essential hypertension: Code(s): I10 - Essential (primary) hypertension Plan: Blood pressure is in range. (3) Knee osteoarthritis: Code(s): M17.10 - Unilateral primary osteoarthritis, unspecified knee Plan: Patient was advised to use extra-strength Tylenol. If symptoms are not controlled with the medication, orthopedic appointment has been suggested. Orders: Orders AMB Hemoglobin A1c Today E11.9 - Type 2 diabetes mellitus without complications Complete Blood Count no Diff Today E11.9 - Type 2 diabetes mellitus without complications Lipid Panel Today E11.9 - Type 2 diabetes mellitus without complications Liver Panel Today E11.9 - Type 2 diabetes mellitus without complications Basic Metabolic Panel Today E11.9 - Type 2 diabetes mellitus without complications Thyroid Stimulating Hormone Today E11.9 - Type 2 diabetes mellitus without complications UA and rflx microscopic Today E11.9 - Type 2 diabetes mellitus without complications Medications: Refilled loratadine (Allergy Relief (loratadine)) 10 mg PO DAILY 90 tabs 1RF Coding Level of Care Code Est Pt Level 4 (31518) Complex EM visit Add On G2211 Diagnoses Diabetes mellitus E11.9 Essential hypertension I10 Knee osteoarthritis M17.10
[2024-04-20 14:24] VITALS: BP 110/68; PULSE 72; O2SAT 95; BMI 29.0
== END 2024-04-20 16:16 | disposition home or self-care (01) ==
PROVIDERS: PCP Internal Medicine; Visit Provider Internal Medicine
DX: E11.9 Type 2 diabetes mellitus without complications (principal); I10 Essential (primary) hypertension; M17.10 Unilateral primary osteoarthritis, unspecified knee
CPT/HCPCS: 83036; 99214; G2211

== ENCOUNTER 2024-05-04 10:23 | Outpatient (REF) | payer OTHER, SELFPAY ==
[2024-05-04 12:14] LABS: Hematocrit 38.4 % (42.0-52.0); Hemoglobin 12.4 g/dl (14.0-18.0); Mean Corpuscular HGB Conc 32.3 g/dl (31.0-36.0); Mean Corpuscular Hemoglobin 29.2 pg (27.0-33.0); Mean Corpuscular Volume 90.6 fL (80.0-98.0); Mean Platelet Volume 11.1 fL (9.4-12.4); Platelet Count 236 X10*3/uL (160-400); Red Blood Count 4.24 X10*6/uL (4.60-5.80); Red Cell Distribution Width 12.8 % (11.0-16.0); White Blood Count 6.4 X10*3/uL (4.8-10.8)
[2024-05-04 12:24] LABS: Appearance Urine Clear; Color Urine Yellow; Glucose Urine UA Negative (Negative); Leukocyte Esterase Urine Negative (Negative); Nitrite Urine Negative (Negative); PH 6.5 (5.0-9.0); Urine Blood Negative (Negative); Urine Ketones Negative (Negative); Urine Protein Negative (Neg-Trace)
[2024-05-04 12:59] LABS: Alanine Aminotransferase 23 U/L (0-40); Albumin Level 4.4 g/dL (3.5-5.0); Alkaline Phosphatase 78 U/L (39-117); Anion Gap 13 (12-20); Aspartate Amino Transferase 17 U/L (5-37); Bilirubin Direct 0.2 mg/dL (0.0-0.5); Bilirubin Total 0.7 mg/dL (0.0-1.0); Blood Urea Nitrogen 14 mg/dL (9-16); Calcium 8.8 mg/dL (8.4-10.2); Carbon Dioxide 27 mmol/L (22-29); Chloride 104 mmol/L (96-108); Cholesterol 121 mg/dL (<200); Estimated Glomerular Filt Rate > 60; Glucose Random 104 mg/dL (60-115); HDL Cholesterol 41 mg/dL (>40); LDL Cholesterol Calculated 61 mg/dL (<100); Potassium 3.7 mmol/L (3.3-5.1); Sodium 140 mmol/L (135-145); Total Protein 7.3 g/dL (6.5-8.0); Triglycerides 95 mg/dL (<150)
[2024-05-04 13:16] LABS: Thyroid Stimulating Hormone 0.87 uIU/mL (0.32-4.0)
[2024-05-10 02:18] LABS: Testosterone, Total 233 ng/dL (250-1100)
== END 2024-05-04 10:24 | disposition home or self-care (01) ==
LOC: HO.LAB 10:23
PROVIDERS: Urology; Absent Provider Internal Medicine; PCP Internal Medicine; Visit Provider Internal Medicine
DX: M25.562 Pain in left knee (principal); M25.561 Pain in right knee; M54.16 Radiculopathy, lumbar region; E11.9 Type 2 diabetes mellitus without complications; E29.1 Testicular hypofunction
CPT/HCPCS: 36415; 80048; 80061; 80076; 81003; 84153; 84403; 84443; 85027; 99212

== ENCOUNTER 2024-05-04 10:23 | Outpatient (AMB) | payer OTHER, SELFPAY ==
--- NOTE | 2024-05-04 10:31 | MHC.OFFVIS ---
Vital Signs 05/04/24 10:33 Height 5 ft 10 in Weight 202 lb BMI 29.0 BP 130/84 Blood Pressure Location Lt brachial Position Sitting Respiration 14 Pulse 80 Pulse Source Pulse Oximeter Pulse Oximetry (%) 97 Oxygen Delivery Method Room Air Intake Visit Reasons: per Dr. Alexander Allergies No Known Allergies [No Known Allergies*] Allergy (Verified 04/20/24 15:06) HPI HPI per Dr. Alexander: Details: 59-year-old male who presents to the office for evaluation of back and right knee pain. The patient reports low back and leg/knee pain. He states that the left knee pain is worse than the right knee. His low back pain radiates down the left lateral thigh. He has difficulty with pain in his back when sitting or walking for prolonged periods of time. He gets relief while standing. His pain aggravates with weight bearing on his leg. He has been doing home exercises for knee pain. He had about 50% relief from tramadol for his pain symptoms. He had an MRI scan at [facility]. He denies any previous arthroscopic surgery on the knee. He requests a prescription for the strong pain medications. Past Procedures: 08/31/23: Right T5-T6-T7 intercostal nerve block, ultrasound guided - 06/25/22: Sprint PNS for Right Saphenous Nerve ? off and on relief 04/23/22: Right Suprapatellar Saphenous GNB ? 70% relief for a few days [facility] Medical History Asthma with COPD COPD (chronic obstructive pulmonary disease) Acute bronchitis and bronchiolitis Dyslipidemia Chronic pain syndrome Knee osteoarthritis Anal pain Arthritis GERD (gastroesophageal reflux disease) Surgical History History of cardiac cath Hx of esophagogastroduodenoscopy Hx of inguinal hernia repair H/O colonoscopy Family History Mother No problems noted. Father Heart attack Social History Household Members: Spouse and Children Housing: House Alcohol intake: former Patient Tobacco Use Status: Former Tobacco user Years Smoked: 15 +/- e-Cigarette/Vaping Use: Never Used Second Hand Smoke Exposure: No service: No Current occupational status: unemployed Cognitive needs: No Hearing needs: No Vision needs: No Review of Systems Const All systems reviewed & are unremarkable except as noted in HPI and below Physical Exam Vital Signs: Last Vital Signs Pulse 80 05/04/24 10:33 Resp 14 05/04/24 10:33 BP 130/84 05/04/24 10:33 Pulse Ox 97 05/04/24 10:33 Oxygen Delivery Method Room Air 05/04/24 10:33 BMI result Body Mass Index 29.0 General: Appears afebrile. Alert and oriented. Mood and affect appropriate. Follows and participates in conversation appropriately. Respiratory effort is unlabored. Able to transition from sit to stand unassisted. Lower back pain exacerbated by lumbar range of motion including flexion. Standing up relieves low back and leg pain. Results Reviewed Results Reviewed: Review of MRI shows moderate foraminal stenosis bilaterally at L3/L4 Assessment & Plan Assessment & Plan (1) Left knee pain: Code(s): M25.562 - Pain in left knee Category: Medical (2) Lumbar radiculitis: Code(s): M54.16 - Radiculopathy, lumbar region Category: Medical Plan Ordered MRI of the left knee for persistent pain, despite physical therapy and multiple injections to see if there is any surgical target for an arthroscopy. I provided him with a physician directed home exercise program to start for his lower back. In the meanwhile, I will schedule him for a left L3 TFESI for lumbar radicular symptoms originating in the lower back and radiating down his left leg causing excruciating pain symptoms. In the meanwhile, I will prescribe Percocet 5-325 mg; instructed him to bring his Tramadol prescription back to the pharmacy for wastage before picking up the Percocet. Patient is in agreement with the plan. Justification for interventional therapy: ? Patient with average pain > 6/10 ? Patient has exhausted conservative therapy including home exercise program, formal physical therapy, tramadol. More than 40 minutes were spent in conducting this visit. Scribed for Dr. Alexander by Fabian Tyler, medical billing representative, on 05/04/2024. I, Dr. Alexander, have personally reviewed and agree with the information entered by the scribe. Orders: Orders knee LT wo con 05/04/24 M25.562 - Pain in left knee Medications: New oxycodone-acetaminophen 5-325 mg Partial Fill upon patient request. 1 tab PO DAILY PRN 60 tabs 0RF pain oxycodone-acetaminophen 5-325 mg Partial Fill upon patient request. 1 tab PO DAILY PRN 60 tabs 0RF pain oxycodone-acetaminophen 5-325 mg Partial Fill upon patient request. 1 tab PO BID PRN 60 tabs 0RF pain Discontinued tramadol Discontinued Reason: Patient Completed Course 50 mg PO Q8H PRN 60 tabs 0RF pain Coding Level of Care Code Est Pt Level 5 (16607) Diagnoses Left knee pain M25.562 Lumbar radiculitis M54.16
[2024-05-04 10:33] VITALS: BP 130/84; PULSE 80; RESP 14; O2SAT 97; BMI 29.0
== END 2024-05-04 11:05 | disposition home or self-care (01) ==
PROVIDERS: PCP Internal Medicine; Visit Provider Internal Medicine
DX: M25.562 Pain in left knee (principal); M54.16 Radiculopathy, lumbar region
CPT/HCPCS: 99215

== ENCOUNTER 2024-05-11 11:26 | Outpatient (AMB) | payer OTHER, SELFPAY ==
[2024-05-11 11:29] VITALS: BP 120/74; PULSE 65; BMI 28.8
--- NOTE | 2024-05-11 11:29 | MHC.OFFVIS ---
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 Allergies No Known Allergies [No Known Allergies*] Allergy (Verified 04/20/24 15:06) Medication List - Last Reconciled 05/11/24 by Carlos Raymundo MD albuterol sulfate 90 mcg/actuation 2 puffs inhalation .every 8 hours PRN 30 days amlodipine 10 mg PO DAILY aspirin 81 mg PO DAILY atorvastatin 80 mg PO BEDTIME blood sugar diagnostic (FreeStyle Lite Strips) Once a day blood-glucose meter (FreeStyle [place] Lite kit) Check Blood Sugar clopidogrel 75 mg PO DAILY cyclosporine 0.05% (Restasis) 1 drp ophthalmic (eye) ONCE fluorometholone 0.1% drps ophthalmic (eye) hydrochlorothiazide 12.5 mg PO DAILY lancets (FreeStyle Lancets) bid letrozole 2.5 mg PO DAILY 30 days loratadine (Allergy Relief (loratadine)) 10 mg PO DAILY metformin 500 mg PO BID 90 days omeprazole 40 mg PO DAILY oxycodone-acetaminophen 5-325 mg 1 tab PO BID PRN sildenafil 100 mg PO ONCE PRN 30 days HPI Comments Details: 58-year-old gentleman who is here for follow-up. He has history of hypertension and has been experiencing chest discomfort. He is describing how pressure-like feeling on the left side of chest which happens randomly. He feels very tired after this and has to lay down. His symptoms has been happening for some time and he is getting them quite frequently. Previously underwent stress testing where he had a hypertensive response to exercise without any significant symptoms. He was started on amlodipine hydrochlorothiazide his blood pressure is improved since. Continues to get chest pains on the left side which are quite concerning. His recently diagnosed with hyperlipidemia as well as diabetes. His hemoglobin A1c is 8. After discussion he was taken for cardiac catheterization. Cardiac catheterization showed multivessel disease including severe LAD as well as 70% circumflex and distal right coronary artery stenosis. We discussed about bypass surgery versus PCI and patient opted for PCI. We treated the LAD with a drug-eluting stent. 09/07/23: He returns for follow-up today. Unfortunately had a fall recently breaking ribs on the right side as well as lower back injury. He is recovering from that. He has been using ibuprofen up to b.i.d.. He has some dyspnea with activities but denying any significant chest discomfort like he was getting before LAD PCI. Taking medications regularly. Blood pressure control is good. 01/11/24: He returns for follow-up. He has been doing well. Blood pressure is elevated. He has been taking medications regularly. He also has been quite compliant with salt intake and exercising regularly. He is taking sumatriptan off and on for headaches. I have advised him not to take sumatriptan anymore. 05/11/2024: He is here for follow-up. He was getting some GI upset with the amlodipine 10 mg at bedtime and he has decrease the dose to 5 mg daily which has improved his symptoms. He also has been experiencing some arm discomfort and chest discomfort when he is under stress. He recently lost his younger brother. He also had some injury to his leg and is not as active as before. He is saying that walking around he does not get any symptoms but when he is under emotional stress he feels uneasy feeling in his chest and arm discomfort. As mentioned above he has known history of coronary disease with previous LAD PCI and had residual disease in circumflex and right coronary artery. [facility] Medical History Asthma with COPD COPD (chronic obstructive pulmonary disease) Acute bronchitis and bronchiolitis Dyslipidemia Chronic pain syndrome Knee osteoarthritis Anal pain Arthritis GERD (gastroesophageal reflux disease) Surgical History History of cardiac cath Hx of esophagogastroduodenoscopy Hx of inguinal hernia repair H/O colonoscopy Family History Mother No problems noted. Father Heart attack Social History Household Members: Spouse and Children Housing: House Alcohol intake: former Patient Tobacco Use Status: Former Tobacco user Years Smoked: 15 +/- e-Cigarette/Vaping Use: Never Used Second Hand Smoke Exposure: No service: No Current occupational status: unemployed Cognitive needs: No Hearing needs: No Vision needs: No Review of Systems Const Denies chills, Denies fatigue, Denies fever(s), Denies frequent falls, Denies weakness, Denies weight gain and Denies weight loss ENT Denies dizziness Card Denies chest pain, Denies leg edema, Denies lightheadedness, Denies palpitations, Denies dyspnea and Denies dyspnea on exertion Resp Denies cough, Denies dyspnea and Denies dyspnea on exertion GI Denies hematochezia Musc Denies abnormal gait, Denies muscle weakness, Denies numbness, Denies radiating pain into limb and Denies tingling Neuro Denies abnormal gait, Denies dizziness, Denies frequent falls, Denies numbness, Denies tingling and Denies weakness Endo Denies fatigue and Denies palpitations Physical Exam Vital Signs: Last Vital Signs Pulse 65 05/11/24 11:29 BP 120/74 05/11/24 11:29 BMI result Body Mass Index 28.8 GENERAL APPEARANCE: in no acute distress, pleasant. NECK: no carotid bruit, no jugular venous distention. SKIN: no suspicious lesions, warm and dry. HEART: no murmurs, regular rate and rhythm. LUNGS: clear to auscultation bilaterally. Ribs tenderness. ABDOMEN: soft, nontender. EXTREMITIES: no edema. PERIPHERAL PULSES: equal. NEUROLOGIC: No gross deficits, AAO X 3 Assessment & Plan Assessment & Plan (1) Stable angina: Code(s): I20.8 - Other forms of angina pectoris Category: Medical (2) Essential hypertension: Code(s): I10 - Essential (primary) hypertension Category: Medical Plan [age] gentleman with background history of hypertension, diabetes and coronary artery disease with previous proximal LAD PCI with residual disease in circumflex and posterolateral branch of the right coronary artery. He has done well since then until recently when he is brother and he has been under stress. He is noticed that when he is under stress he gets left-sided discomfort as well as arm discomfort. With activities he does not get significant symptoms. He also has injured his knee and he is seeing pain management for that and his activity level has gone down. We discussed about stress testing but currently due due leg pain we can not pursue exercise stress test. His symptoms are mostly under stress and not with activity in general. I have advised him to continue to monitor his symptoms and reach out to us if he notices any change in his symptomatology. As his knee improves I will consider stress testing but if he started noticing some symptoms with activity then we may have to pursue diagnostic angiography again and performed PCI to circumflex and PLV. Blood pressure control is good. He has cut back on amlodipine to 5 mg because he was getting some GI issues which improved as he cut the dose. Follow-up with us in 3-4 months. Thank you for allowing me to participate in the care of your patient. Please feel free to contact me if you have any questions. Medications: New amlodipine 5 mg PO DAILY 90 tabs 4RF Discontinued amlodipine Discontinued Reason: Doctor's Order 10 mg PO DAILY 90 tabs 3RF I10 - Essential (primary) hypertension Coding Level of Care Code Est Pt Level 3 (63698) Diagnoses Stable angina I20.8 Essential hypertension I10
== END 2024-05-11 12:07 | disposition home or self-care (01) ==
PROVIDERS: PCP Internal Medicine; Visit Provider Internal Medicine Cardiovascular Disease
DX: I20.89 Other forms of angina pectoris (principal); I10 Essential (primary) hypertension
CPT/HCPCS: 99213

== ENCOUNTER → 2024-05-11 11:26 | Outpatient (BNVA) | payer OTHER, SELFPAY | PROVIDERS: PCP Internal Medicine; Visit Provider Internal Medicine Cardiovascular Disease | DX: I20.89 Other forms of angina pectoris (principal); I10 Essential (primary) hypertension | CPT/HCPCS: 99212 ==

== ENCOUNTER 2024-05-17 10:06 | Outpatient (AMB) | payer OTHER, SELFPAY ==
[2024-05-17 10:20] VITALS: BP 120/78; PULSE 58; O2SAT 98; BMI 29.4
--- NOTE | 2024-05-17 10:20 | A.OFFVIS_ITS ---
Vital Signs 05/17/24 10:20 Height 5 ft 10 in Weight 205 lb BMI 29.4 BP 120/78 Blood Pressure Location Lt brachial Position Sitting Pulse 58 Pulse Source Pulse Oximeter Pulse Oximetry (%) 98 Oxygen Delivery Method Room Air Intake Visit Reasons: Shortness of breath Intake Note: pt is here for follow up and he feels good. 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: No Allergies No Known Allergies [No Known Allergies*] Allergy (Verified 05/17/24 10:44) Medication List - Last Reconciled 05/17/24 by Jillian Ordaz MD albuterol sulfate 90 mcg/actuation 2 puffs inhalation .every 8 hours PRN 30 days amlodipine 5 mg PO DAILY aspirin 81 mg PO DAILY atorvastatin 80 mg PO BEDTIME blood sugar diagnostic (FreeStyle Lite Strips) Once a day blood-glucose meter (FreeStyle [place] Lite kit) Check Blood Sugar budesonide-formoterol 160-4.5 mcg/actuation (Symbicort) 2 puffs inhalation Q12H clopidogrel 75 mg PO DAILY cyclosporine 0.05% (Restasis) 1 drp ophthalmic (eye) ONCE fluorometholone 0.1% drps ophthalmic (eye) hydrochlorothiazide 12.5 mg PO DAILY lancets (FreeStyle Lancets) bid letrozole 2.5 mg PO DAILY 30 days loratadine (Allergy Relief (loratadine)) 10 mg PO DAILY metformin 500 mg PO BID 90 days omeprazole 40 mg PO DAILY oxycodone-acetaminophen 5-325 mg 1 tab PO BID PRN sildenafil 100 mg PO ONCE PRN 30 days Do you need a note to return to daycare/school/sports/work: No HPI HPI Shortness of breath: Details: 59 YEARS OLD GENTLEMAN, PAST HISTORY OF SMOKING,, IS BEING FOLLOWED FOR ASTHMA/COPD SYNDROME. HE IS USING SYMBICORT 160-4.5 2 PUFFS USUALLY ONLY ONCE A DAY, AND HAS REMAINED VERY STABLE. HE HAS NOT NEEDED TO USE ALBUTEROL FOR LONG TIME. STILL HAS MILD INTERMITTENT COUGH ESPECIALLY WHEN THERE IS CHANGE IN THE WEATHER. HE DENIES ANY DYSPNEA ON EXERTION. HAS NOT SMOKED FOR 3 YEARS . [facility], [facility] Medical History Asthma with COPD COPD (chronic obstructive pulmonary disease) Acute bronchitis and bronchiolitis Dyslipidemia Chronic pain syndrome Knee osteoarthritis Anal pain Arthritis GERD (gastroesophageal reflux disease) Surgical History History of cardiac cath Hx of esophagogastroduodenoscopy Hx of inguinal hernia repair H/O colonoscopy Family History Mother No problems noted. Father Heart attack Social History Household Members: Spouse and Children Housing: House Alcohol intake: former Patient Tobacco Use Status: Former Tobacco user Years Smoked: 15 +/- e-Cigarette/Vaping Use: Never Used Second Hand Smoke Exposure: No service: No Current occupational status: unemployed Cognitive needs: No Hearing needs: No Vision needs: No Review of Systems Const All systems reviewed & are unremarkable except as noted in HPI and below Eyes Reports no additional complaints ENT Reports nasal congestion and Reports nasal discharge Card Denies chest pain at rest, Denies irregular heart rhythm and Denies leg edema Resp Reports as per HPI GI Reports heartburn (GERD symptoms controlled with omeprazole) Reports no additional complaints Musc Reports back pain (Chronic, uses stimulator.) Skin/Breast Reports system reviewed and no additional complaints, except as documented Neuro Reports no additional complaints Psych Reports no additional complaints Physical Exam Vital Signs: Last Vital Signs Pulse 58 05/17/24 10:20 BP 120/78 05/17/24 10:20 Pulse Ox 98 05/17/24 10:20 Oxygen Delivery Method Room Air 05/17/24 10:20 BMI result Body Mass Index 29.4 Const General: healthy appearing, comfortable (But does have frequent cough during conversation.), no acute distress, alert and awake Orientation/consciousness: patient oriented x3 HEENT Head: Yes normal to inspection General nose exam: No nasal polyps present, No nasal discharge present and Other nasal findings present (Mild nasal congestion is noted) Face and sinus: Yes sinuses nontender Mouth: oropharynx normal Throat: Yes posterior oropharynx normal Eyes General: appearance normal, both eyes and all related structures Neck Neck: Yes normal visual inspection, Yes no lymphadenopathy, Yes trachea midline and Yes no JVD Thyroid: Thyroid normal Chest Chest palpation & inspection: normal inspection of the chest, normal palpation of entire chest wall and no tenderness Resp Other: Breath sounds are equal on both sides, slightly distant and prolonged expiratory phase. There is no definite tenderness on the chest. Lungs are clear on both size without any wheezes or crepitations. Cardio Palpation: normal PMI Rate: regular rate Rhythm: regular rhythm Heart sounds: no gallops and no murmurs Peripheral pulses: Peripheral pulses 2+ throughout GI Palpation (GI): Soft to palpation, nontender, No hepatosplenomegaly present and no masses Auscultation: normal bowel sounds Back/Spine/Pelvis Thoracic/Lumbar Spine: thoracic and lumbar spine normal to inspection and thoraco-lumbar ROM limited Skin General skin exam: no rashes or lesions noted Neuro General: patient oriented x3 and no focal motor deficits Cranial nerves: Yes CN's II-XII intact bilaterally Extrem General: Yes normal to inspection, Yes no clubbing, cyanosis or edema and Yes no calf tenderness Psych Appearance: grossly normal and well kempt Speech and movement: Normal speech and movement present Assessment & Plan Assessment & Plan (1) Asthma with COPD: Comment: Intermittent cough and mild shortness of breath on exertion secondary to COPD due to his previous smoking. In addition he has component of bronchial asthma. . Results of PFT . Are again reviewed . Code(s): J44.9 - Chronic obstructive pulmonary disease, unspecified Category: Medical Plan: [place] : Commended for not smoking , and urge that in future he should not go back to smoking at all. Symbicort 160-4.5 2 puffs b.i.d., and when symptoms are controlled then may use only once a day. Albuterol HFA 2 puffs Q 4-6 hours only p.r.n. for acute and sustained bouts of cough. Revisit Q 6 hours and p.r.n. Medications: Changed From albuterol sulfate 90 mcg/actuation 2 puffs inhalation .every 8 hours 30 days PRN 6.7 grams 0RF shortness of breath or wheezing To albuterol sulfate 90 mcg/actuation 2 puffs inhalation Q6-8H 30 days PRN 6.7 grams 2RF shortness of breath or wheezing Coding Level of Care Code Est Pt Level 3 (30379) Diagnoses Asthma with COPD J44.9
== END 2024-05-17 10:46 | disposition home or self-care (01) ==
PROVIDERS: PCP Internal Medicine; Visit Provider Internal Medicine
DX: J44.9 Chronic obstructive pulmonary disease, unspecified (principal)
CPT/HCPCS: 99213

== ENCOUNTER → 2024-05-17 10:06 | Outpatient (BNVA) | payer OTHER, SELFPAY | PROVIDERS: PCP Internal Medicine; Visit Provider Internal Medicine | DX: J44.9 Chronic obstructive pulmonary disease, unspecified (principal) | CPT/HCPCS: 99212 ==

== ENCOUNTER 2024-05-31 11:45 | Outpatient (AMB) | payer OTHER, SELFPAY ==
--- NOTE | 2024-05-31 11:45 | MHC.OFFVIS ---
Intake Visit Reasons: Follow up Intake Note: Patient is Present for Telephone Follow Up Urology Med: Sildenafil, Letrozole Antibiotic Allergy:None Blood Thinner: Aspirin, Clopidogrel Diabetic Medication: Metformin Allergies No Known Allergies [No Known Allergies*] Allergy (Verified 05/31/24 11:46) Medication List - Last Reconciled 05/31/24 by José Miguel Mcgraw MD albuterol sulfate 90 mcg/actuation 2 puffs inhalation Q6-8H PRN 30 days amlodipine 5 mg PO DAILY aspirin 81 mg PO DAILY atorvastatin 80 mg PO BEDTIME blood sugar diagnostic (FreeStyle Lite Strips) Once a day blood-glucose meter (FreeStyle [place] Lite kit) Check Blood Sugar budesonide-formoterol 160-4.5 mcg/actuation (Symbicort) 2 puffs inhalation Q12H clopidogrel 75 mg PO DAILY cyclosporine 0.05% (Restasis) 1 drp ophthalmic (eye) ONCE fluorometholone 0.1% drps ophthalmic (eye) hydrochlorothiazide 12.5 mg PO DAILY lancets (FreeStyle Lancets) bid letrozole 2.5 mg PO DAILY 30 days loratadine (Allergy Relief (loratadine)) 10 mg PO DAILY metformin 500 mg PO BID 90 days omeprazole 40 mg PO DAILY oxycodone-acetaminophen 5-325 mg 1 tab PO BID PRN sildenafil 100 mg PO ONCE PRN 30 days HPI Comments Details: Virgil is a [place]. He is a patient of Dr. Coy. He is seen for the following urologic conditions - hypogonadism - erectile dysfunction - male infertility Telemedicine evaluation 15 minute consultation DoxmDialog pj Video attempted Continue good effect from PDE5 06/08 T 233 Diabetic on metformin Based on T4DM study would suggest boosting testosterone to 600 range Will follow in 12 months is again 06/07 cardiac catheterization showed multivessel disease including severe LAD as well as 70% circumflex and distal right coronary artery stenosis - with Dr Jensen Previously - Has undergone repeat semen analysis - Has been on hCG 500 IU 2 times a week - was able to get and had a baby girl 01/08 Hypogonadism: He presents today for further evaluation and followup of his hypogonadism. Initial symptoms include erectile dysfunction Yes decreased libido Yes change in mood/depression Yes in muscle size/strength Yes increased fatigue/malaise Yes The onset of symptoms has been gradual. Erectile status baseline VIRGIE Score 06/04 - T 216 FSH 14 Prolactin 31, T195, 08/05 325, 11/04 487, 05/06 80 - 10/08 P 0.4 Prior therapy clomiphene - Elevated estradiol with side effects Side effect with cialis - muscle weakness - 5mg Male Infertility: Male infertility Normalized T with letrozole Was able to conceive whilst on HCG PFSH Medical History Asthma with COPD COPD (chronic obstructive pulmonary disease) Acute bronchitis and bronchiolitis Dyslipidemia Chronic pain syndrome Knee osteoarthritis Anal pain Arthritis GERD (gastroesophageal reflux disease) Surgical History History of cardiac cath Hx of esophagogastroduodenoscopy Hx of inguinal hernia repair H/O colonoscopy Family History Mother No problems noted. Father Heart attack Social History Household Members: Spouse and Children Housing: House Alcohol intake: former Patient Tobacco Use Status: Former Tobacco user Years Smoked: 15 +/- e-Cigarette/Vaping Use: Never Used Second Hand Smoke Exposure: No service: No Current occupational status: unemployed Cognitive needs: No Hearing needs: No Vision needs: No Review of Systems Const All systems reviewed & are unremarkable except as noted in HPI and below Reports no additional complaints Resp Reports no additional complaints GI Reports no additional complaints Reports as per HPI Musc Reports no additional complaints Physical Exam Telemedicine evaluation Appropriate responses Regular breathing rate and rhythm HEENT Head: Yes normal to inspection Ears: hearing grossly normal bilaterally Eyes General: appearance normal, both eyes and all related structures Neck Neck: Yes normal visual inspection Chest Chest palpation & inspection: normal inspection of the chest Resp Effort & Inspection: normal respiratory effort and able to speak in complete sentences Telehealth Telehealth Location of provider rendering services: practice address Location of patient: address on file Patient Identification confirmed using: Name, : Yes Telehealth method: video Patient verbally consented to treatment: Yes Patient verbally consented to billing insurance company: Yes Patient informed of any privacy concerns related to visit: Yes Assessment & Plan Assessment & Plan (1) Erectile dysfunction associated with type 2 diabetes mellitus: Code(s): E11.69 - Type 2 diabetes mellitus with other specified complication; N52.1 - Erectile dysfunction due to diseases classified elsewhere Category: Medical (2) Hypogonadism in male: Code(s): E29.1 - Testicular hypofunction Category: Medical Plan 1 yr follow up Orders: Orders Prostate Specific Antigen 1 Year E11.69 - Type 2 diabetes mellitus with other specified complication, N52.1 - Erectile dysfunction due to diseases classified elsewhere Testosterone, Free/Total 1 Year E29.1 - Testicular hypofunction Medications: Refilled sildenafil administer 60 minutes before intended activity 100 mg PO ONCE PRN 30 tabs 1RF sexual activity 30 days N52.01 - Erectile dysfunction due to arterial insufficiency Patient Instructions: Imaging studies, laboratory and physical exam results were discussed and reviewed in detail. No major barriers to patient understanding were identified. An opportunity to ask questions regarding the treatment plan was provided. All questions were answered. The patient expressed understanding and agreement with the above treatment plan. The patient is aware they should contact our office by phone for worsening of their current condition or the appearance of new urologic symptoms. Compliance is encouraged with any medications and followup testing that is ordered. It is a privilege to participate in the urologic care of your patient. If you have any questions or concerns regarding treatment for the above conditions, or other urologic issues, please do not hesitate to contact me. The office telephone contact is [phone]. This note is constructed using voice recognition software. While every effort has been made to ensure accuracy escrow clerk errors may have been included. Yours sincerely, Dr José Miguel Mcgraw MD, [facility] - Urology Providers of Expert, Compassionate Care for the Genitourinary System Coding Level of Care Code Tele Est Pt Level 3 (00307) Diagnoses Erectile dysfunction associated with type 2 diabetes mellitus E11.69; N52.1 Hypogonadism in male E29.1
== END 2024-05-31 12:55 | disposition home or self-care (01) ==
LOC: HO.HUSH 11:45
PROVIDERS: PCP Internal Medicine; Visit Provider Urology
DX: E11.69 Type 2 diabetes mellitus with other specified complication (principal); N52.1 Erectile dysfunction due to diseases classified elsewhere; E29.1 Testicular hypofunction
CPT/HCPCS: 99213

== ENCOUNTER → 2024-05-31 11:45 | Outpatient (BNVA) | payer OTHER, SELFPAY | PROVIDERS: PCP Internal Medicine; Visit Provider Urology ==

== ENCOUNTER 2024-08-22 15:31 | Outpatient (AMB) | payer OTHER, SELFPAY ==
[2024-08-22 15:56] VITALS: BP 110/70; PULSE 68; BMI 30.2
--- NOTE | 2024-08-22 15:56 | A.OFFVIS_ITS ---
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: No Accompanied by: Self / Same As Patient Allergies No Known Allergies [No Known Allergies*] Allergy (Verified 05/31/24 11:46) Medication List - Last Reconciled 08/22/24 by Carlos Raymundo MD albuterol sulfate 90 mcg/actuation 2 puffs inhalation Q6-8H PRN 30 days amlodipine 5 mg PO DAILY aspirin 81 mg PO DAILY atorvastatin 80 mg PO BEDTIME blood sugar diagnostic (FreeStyle Lite Strips) Once a day blood-glucose meter (FreeStyle [place] Lite kit) Check Blood Sugar budesonide-formoterol 160-4.5 mcg/actuation (Symbicort) 2 puffs PO BID clopidogrel 75 mg PO DAILY cyclosporine 0.05% (Restasis) 1 drp ophthalmic (eye) ONCE fluorometholone 0.1% drps ophthalmic (eye) hydrochlorothiazide 12.5 mg PO DAILY lancets (FreeStyle Lancets) bid letrozole 2.5 mg PO DAILY 30 days loratadine (Allergy Relief (loratadine)) 10 mg PO DAILY metformin 500 mg PO BID 90 days omeprazole 40 mg PO DAILY oxycodone-acetaminophen 5-325 mg 1 tab PO BID PRN sildenafil 100 mg PO ONCE PRN 30 days HPI Comments Details: 59-year-old gentleman who is here for follow-up. He has history of hypertension and has been experiencing chest discomfort. He is describing how pressure-like feeling on the left side of chest which happens randomly. He feels very tired after this and has to lay down. His symptoms has been happening for some time and he is getting them quite frequently. Previously underwent stress testing where he had a hypertensive response to exercise without any significant symptoms. He was started on amlodipine hydrochlorothiazide his blood pressure is improved since. Continues to get chest pains on the left side which are quite concerning. His recently diagnosed with hyperlipidemia as well as diabetes. His hemoglobin A1c is 8. After discus cinthia he was taken for cardiac catheterization. Cardiac catheterization showed multivessel disease including severe LAD as well as 70% circumflex and distal right coronary artery stenosis. We discussed about bypass surgery versus PCI and patient opted for PCI. We treated the LAD with a drug-eluting stent. 09/07/23: He returns for follow-up today. Unfortunately had a fall recently breaking ribs on the right side as well as lower back injury. He is recovering from that. He has been using ibuprofen up to b.i.d.. He has some dyspnea with activities but denying any significant chest discomfort like he was getting before LAD PCI. Taking medications regularly. Blood pressure control is good. 01/11/24: He returns for follow-up. He has been doing well. Blood pressure is elevated. He has been taking medications regularly. He also has been quite compliant with salt intake and exercising regularly. He is taking sumatriptan off and on for headaches. I have advised him not to take sumatriptan anymore. 05/11/2024: He is here for follow-up. He was getting some GI upset with the amlodipine 10 mg at bedtime and he has decrease the dose to 5 mg daily which has improved his symptoms. He also has been experiencing some arm discomfort and chest discomfort when he is under stress. He recently lost his younger brother. He also had some injury to his leg and is not as active as before. He is saying that walking around he does not get any symptoms but when he is under emotional stress he feels uneasy feeling in his chest and arm discomfort. As mentioned above he has known history of coronary disease with previous LAD PCI and had residual disease in circumflex and right coronary artery. 08/22/2024: He is here for follow-up. Blood pressure is well controlled. EKGs normal. He is saying that he has been experiencing some arm discomfort off and on. He thinks that this is because he felt funny. He also had episode of shortness of breath while he was at home and he had to open the windows to breathe better. He said everyone else was fine and I just felt like that. He is not endorsing the classic chest discomfort he was getting before but has significant new symptoms. He has residual circumflex and RCA stenosis in the past. Blood pressure as mentioned is well controlled. [facility] Medical History Asthma with COPD COPD (chronic obstructive pulmonary disease) Acute bronchitis and bronchiolitis Dyslipidemia Chronic pain syndrome Knee osteoarthritis Anal pain Arthritis GERD (gastroesophageal reflux disease) Surgical History History of cardiac cath Hx of esophagogastroduodenoscopy Hx of inguinal hernia repair H/O colonoscopy Family History Mother No problems noted. Father Heart attack Social History Household Members: Spouse and Children Housing: House Alcohol intake: former Patient Tobacco Use Status: Former Tobacco user Years Smoked: 15 +/- e-Cigarette/Vaping Use: Never Used Second Hand Smoke Exposure: No service: No Current occupational status: unemployed Cognitive needs: No Hearing needs: No Vision needs: No Review of Systems Const Denies chills, Denies fatigue, Denies fever(s), Denies frequent falls, Denies weakness, Denies weight gain and Denies weight loss ENT Denies dizziness Card Denies chest pain, Denies leg edema, Denies lightheadedness, Denies palpitations, Denies dyspnea and Denies dyspnea on exertion Resp Denies cough, Denies dyspnea and Denies dyspnea on exertion GI Denies hematochezia Musc Denies abnormal gait, Denies muscle weakness, Denies numbness, Denies radiating pain into limb and Denies tingling Neuro Denies abnormal gait, Denies dizziness, Denies frequent falls, Denies numbness, Denies tingling and Denies weakness Endo Denies fatigue and Denies palpitations Physical Exam Vital Signs: Last Vital Signs Pulse 68 08/22/24 15:56 BP 110/70 08/22/24 15:56 BMI result Body Mass Index 30.2 GENERAL APPEARANCE: in no acute distress, pleasant. NECK: no carotid bruit, no jugular venous distention. SKIN: no suspicious lesions, warm and dry. HEART: no murmurs, regular rate and rhythm. LUNGS: clear to auscultation bilaterally. ABDOMEN: soft, nontender. EXTREMITIES: no edema. PERIPHERAL PULSES: equal. NEUROLOGIC: No gross deficits, AAO X 3 Office Procedures EKG Details: Sinus rhythm 68 beats per minute, normal axis, QTC 429 milliseconds. [id number], Complete Assessment & Plan Assessment & Plan (1) Stable angina: Code(s): I20.8 - Other forms of angina pectoris Category: Medical (2) Essential hypertension: Code(s): I10 - Essential (primary) hypertension Category: Medical Plan Pleasant 59 year gentleman who is here for follow-up. He has known history of coronary artery disease with multivessel disease diagnosed on diagnostic angiography in the past and we treated the proximal LAD as culprit with improvement in symptoms significantly. More recently has been complaining of some symptoms and on follow-up today he is complaining of arm discomfort as well as feeling shortness of breath at times. Blood pressure is well controlled. EKGs does not have any dynamic changes. I have advised him to do exercise tolerance test. He is agreeable and we will arrange that. Further management once we do the stress test. Thank you for allowing me to participate in the care of your patient. Please feel free to contact me if you have any questions. Coding Level of Care Code Est Pt Level 4 (37932) Diagnoses Stable angina I20.8 Essential hypertension I10 CPT Codes EKG - CPT: 63211-[id number], Complete ([id number])
== END 2024-08-22 16:19 | disposition home or self-care (01) ==
PROVIDERS: PCP Internal Medicine; Visit Provider Internal Medicine Cardiovascular Disease
DX: I20.89 Other forms of angina pectoris (principal); I10 Essential (primary) hypertension
CPT/HCPCS: 93010; 99214

== ENCOUNTER → 2024-08-22 15:31 | Outpatient (BNVA) | payer OTHER, SELFPAY | PROVIDERS: PCP Internal Medicine; Visit Provider Internal Medicine Cardiovascular Disease | DX: I10 Essential (primary) hypertension (principal); I20.89 Other forms of angina pectoris | CPT/HCPCS: 93005; 99212 ==

== ENCOUNTER 2024-09-05 09:47 | Outpatient (REF) | payer OTHER, SELFPAY ==
[2024-09-05 10:26] LABS: MANUAL DIFF FLAG NO
[2024-09-05 10:43] LABS: Basophils Absolute Auto 0.1 X10*3/uL (0.0-0.2); Basophils Percent Auto 0.6 % (0-2); Eosinophils Absolute Auto 0.3 X10*3/uL (0.0-0.4); Eosinophils Percent Auto 3.3 % (0-4); Hematocrit 39.4 % (42.0-52.0); Hemoglobin 12.9 g/dl (14.0-18.0); Imm Gran Abs Auto 0.02 X10*3/uL (0.00-0.03); Imm Gran Pct Auto 0.2 % (0.0-0.4); Lymphocytes Absolute Auto 2.4 X10*3/uL (1.2-4.9); Lymphocytes Percent Auto 29.6 % (20-40); Mean Corpuscular HGB Conc 32.7 g/dl (31.0-36.0); Mean Corpuscular Hemoglobin 29.4 pg (27.0-33.0); Mean Corpuscular Volume 89.7 fL (80.0-98.0); Mean Platelet Volume 10.8 fL (9.4-12.4); Monocytes Absolute Auto 0.7 X10*3/uL (0.1-1.2); Monocytes Percent Auto 9.1 % (2-11); Neutrophils Absolute Auto 4.7 x10*3/uL (2.0-8.3); Neutrophils Percent Auto 57.2 % (45-73); Platelet Count 232 X10*3/uL (160-400); Red Blood Count 4.39 X10*6/uL (4.60-5.80); White Blood Count 8.2 X10*3/uL (4.8-10.8)
[2024-09-05 10:48] LABS: Prothrombin Time 11.4 SEC (10.9-12.4)
[2024-09-05 11:27] LABS: Anion Gap 10 (12-20); Blood Urea Nitrogen 10 mg/dL (9-16); Calcium 9.6 mg/dL (8.4-10.2); Carbon Dioxide 30 mmol/L (22-29); Chloride 104 mmol/L (96-108); Estimated Glomerular Filt Rate > 60; Glucose Random 103 mg/dL (60-115); Potassium 3.9 mmol/L (3.3-5.1); Sodium 140 mmol/L (135-145)
== END 2024-09-05 09:48 | disposition home or self-care (01) ==
LOC: HO.LAB 09:47
PROVIDERS: PCP Internal Medicine; Visit Provider Internal Medicine Cardiovascular Disease
DX: I20.0 Unstable angina (principal)
CPT/HCPCS: 36415; 80048; 85025; 85610

== ENCOUNTER → 2024-09-07 23:59 | Outpatient (BNV) | payer OTHER, SELFPAY | PROVIDERS: PCP Internal Medicine; Visit Provider Internal Medicine Cardiovascular Disease | DX: I20.89 Other forms of angina pectoris (principal) | CPT/HCPCS: 92928; 92978; 93458; 93571; 93572; 99152 ==

== ENCOUNTER 2024-09-19 15:39 | Outpatient (AMB) | payer OTHER, SELFPAY ==
--- NOTE | 2024-09-19 15:44 | MHC.OFFVIS ---
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 Allergies No Known Allergies [No Known Allergies*] Allergy (Verified 09/19/24 15:46) Medication List - Last Reconciled 09/19/24 by Ly Goodwin, REFINERY PIPELINE OPERATOR-C albuterol sulfate 90 mcg/actuation 2 puffs inhalation Q6-8H PRN 30 days amlodipine 5 mg PO DAILY aspirin 81 mg PO DAILY atorvastatin 80 mg PO BEDTIME blood sugar diagnostic (FreeStyle Lite Strips) Once a day blood-glucose meter (FreeStyle [place] Lite kit) Check Blood Sugar clopidogrel 75 mg PO DAILY cyclosporine 0.05% (Restasis) 1 drp ophthalmic (eye) ONCE fluorometholone 0.1% drps ophthalmic (eye) hydrochlorothiazide 12.5 mg PO DAILY lancets (FreeStyle Lancets) bid letrozole 2.5 mg PO DAILY 30 days loratadine (Allergy Relief (loratadine)) 10 mg PO DAILY metformin 500 mg PO BID 90 days omeprazole 40 mg PO DAILY sildenafil 100 mg PO ONCE PRN 30 days HPI HPI cath 09/07 f/up: Details: Virgil is a 59-year-old male with past medical history of hyperlipidemia, hypertension, CAD with prior LAD stent who recently reported random left-sided chest discomfort and fatigue. He had known residual left circumflex and RCA disease so he was set up for a cardiac catheterization and now presents for follow-up. Today he reports that he has been feeling better since his catheterization procedure. He has not had any recent chest discomfort. He denies shortness of breath, PND, orthopnea or edema. No lightheadedness, palpitations, presyncope, syncope, falls. His right radial catheterization site is feeling good. He declines cardiac rehab. He walks frequently. Takes meds as directed. [facility] [place] Medical History (Updated 09/19/24 @ 16:55 by Ly Goodwin, REFINERY PIPELINE OPERATOR-C) Asthma with COPD COPD (chronic obstructive pulmonary disease) Acute bronchitis and bronchiolitis Dyslipidemia Chronic pain syndrome Knee osteoarthritis Anal pain Arthritis GERD (gastroesophageal reflux disease) Surgical History (Updated 09/19/24 @ 16:59 by SHER Rangel) History of cardiac cath Hx of esophagogastroduodenoscopy Hx of inguinal hernia repair H/O colonoscopy Family History Mother No problems noted. Father Heart attack Social History Household Members: Spouse and Children Housing: House Alcohol intake: former Patient Tobacco Use Status: Former Tobacco user Years Smoked: 15 +/- e-Cigarette/Vaping Use: Never Used Second Hand Smoke Exposure: No service: No Current occupational status: unemployed Cognitive needs: No Hearing needs: No Vision needs: No Review of Systems Const All systems reviewed & are unremarkable except as noted in HPI and below ENT Denies dizziness Card Denies chest pain, Denies chest pain at rest, Denies chest pain with activity, Denies rapid heart rate, Denies pedal edema, Denies edema, Denies leg edema, Denies lightheadedness, Denies palpitations, Denies dyspnea, Denies dyspnea on exertion and Denies orthopnea Resp Denies cough, Denies dyspnea and Denies dyspnea on exertion GI Denies hematochezia and Denies change in stool character Musc Denies abnormal gait, Denies limited range of motion, Denies muscle cramps, Denies muscle weakness, Denies numbness, Denies radiating pain into limb, Denies stiffness and Denies tingling Neuro Denies abnormal gait, Denies dizziness, Denies numbness and Denies tingling Endo Denies palpitations Physical Exam Vital Signs: Last Vital Signs Pulse 79 09/19/24 15:45 BP 122/70 09/19/24 15:45 BMI result Body Mass Index 30.6 Const General: cooperative, healthy appearing, comfortable and no acute distress Orientation/consciousness: patient oriented x3 Neck Neck: Yes normal visual inspection Resp Effort & Inspection: normal respiratory effort Auscultation: clear to auscultation bilaterally, no rales, no rhonchi and no wheezes Cardio Jugular venous distension: no JVD Rate: regular rate Rhythm: regular rhythm Heart sounds: S1 normal heart sound present, S2 normal heart sound present, no murmurs and no rubs Neuro General: patient oriented x3 Extrem Other: right radial cath site well healed, easily palpable radial pulse, normal hand assessment General: Yes normal to inspection and No no pedal edema Psych Appearance: grossly normal Mental Status: mental status grossly normal Speech and movement: Normal speech and movement present Assessment & Plan Assessment & Plan (1) CAD (coronary artery disease): Code(s): I25.10 - Atherosclerotic heart disease of [place] coronary artery without angina pectoris Category: Medical Plan: History of CAD with prior LAD stent. Recent reports of random chest discomfort. He had known residual left circumflex and RCA stenosis. He was taken for cardiac catheterization on 09/07/2024 showing right dominant circulation with a 70% PL branch stenosis, KENY was placed. He still has residual left circumflex stenosis with normal IFR and mild distal left main stenosis with normal IFR, stent to the proximal LAD with mild ISR. Today he denies any chest discomfort. He says his symptom has improved. He declines cardiac rehab. He tells me he walks routinely. Will continue aspirin indefinitely. Continue Plavix uninterrupted for at least 1 year. Continue high-dose atorvastatin with ideal LDL goal less than 70. Continue amlodipine as antianginal and for blood pressure control. Cardiac risk factor modification reviewed with him. Signs and symptoms of angina discussed. Cardiology follow-up 4 months, sooner if needed. (2) History of cardiac cath: Comment: 09/07/2024, right dominant circulation, 70% PL branch stenosis, KENY placed, 70% mid circumflex stenosis, IFR 0.93, mild ISR in the proximal LAD stent, distal left main 30-40% stenosis, IFR 0.94 Code(s): Z98.890 - Other specified postprocedural states Category: Surgical Plan: Right radial catheterization site well healed (3) Essential hypertension: Code(s): I10 - Essential (primary) hypertension Category: Medical Plan: Well controlled at this time. No med changes made. Continue amlodipine and hydrochlorothiazide (4) Dyslipidemia: Code(s): E78.5 - Hyperlipidemia, unspecified Category: Medical Plan: [place] LDL goal less than 70 in patient with CAD. Labs done 05/04/2024 shows LDL 61. Continue high-dose atorvastatin. Plan Time spent on chart review, documentation, interview and assessment Coding Level of Care Code Est Pt Level 4 (47849) Diagnoses CAD (coronary artery disease) I25.10 History of cardiac cath Z98.890 Essential hypertension I10 Dyslipidemia E78.5 Time Spent (min) 28
[2024-09-19 15:45] VITALS: BP 122/70; PULSE 79; BMI 30.6
== END 2024-09-19 16:31 | disposition home or self-care (01) ==
LOC: HO.HCS 15:40
PROVIDERS: PCP Internal Medicine; Visit Provider Nurse Practitioner Family
DX: I25.10 Atherosclerotic heart disease of native coronary artery without angina pectoris (principal); Z98.890 Other specified postprocedural states; I10 Essential (primary) hypertension; E78.5 Hyperlipidemia, unspecified
CPT/HCPCS: 99214

== ENCOUNTER → 2024-09-19 15:39 | Outpatient (BNVA) | payer OTHER, SELFPAY | PROVIDERS: PCP Internal Medicine; Visit Provider Nurse Practitioner Family | DX: I25.10 Atherosclerotic heart disease of native coronary artery without angina pectoris (principal); I10 Essential (primary) hypertension; E78.5 Hyperlipidemia, unspecified; Z98.890 Other specified postprocedural states | CPT/HCPCS: 99212 ==

== ENCOUNTER 2025-02-23 15:48 | Outpatient (AMB) | payer OTHER, SELFPAY ==
--- NOTE | 2025-02-23 15:49 | A.OFFPC_ITS ---
Vital Signs 02/23/25 15:52 Height 5 ft 10 in Weight 210 lb 4 oz BMI 30.2 BP 110/74 Blood Pressure Location Lt brachial Position Sitting Pulse 78 Pulse Source Pulse Oximeter Temp 97.3 F Temp Source Temporal Artery Scan Pulse Oximetry (%) 97 Oxygen Delivery Method Room Air Intake Visit Reasons: med management Intake Note: Patient is here to follow up on Med Management. Pt requesting lab orders Burial Vault Setter Required: No Cooker Loader: Not Required per policy Accompanied by: Self / Same As Patient Allergies No Known Allergies [No Known Allergies*] Allergy (Verified 02/23/25 15:51) Tobacco use date assessed: 02/23/25 Dental Screening Dental Screen Date: 02/23/25 Did you have a dental visit in the last 12 months?: Yes Did you have a dental problem in the last 6 months where you did not have access to dental care?: No Was dental information given to patient?: Patient has dentist [facility] Medical History (Updated 02/23/25 @ 16:49 by Toño Cortez MD) Onychomycosis Asthma with COPD COPD (chronic obstructive pulmonary disease) Acute bronchitis and bronchiolitis Dyslipidemia Chronic pain syndrome Knee osteoarthritis Anal pain Arthritis GERD (gastroesophageal reflux disease) Surgical History History of cardiac cath Hx of esophagogastroduodenoscopy Hx of inguinal hernia repair H/O colonoscopy Family History Mother No problems noted. Father Heart attack Social History Household Members: Spouse and Children Housing: House Alcohol intake: former Patient Tobacco Use Status: Former Tobacco user Years Smoked: 15 +/- e-Cigarette/Vaping Use: Never Used Second Hand Smoke Exposure: Yes service: No Current occupational status: unemployed Cognitive needs: No Hearing needs: No Vision needs: No Questionnaire PHQ-9 Over the last 2 weeks, how often have you been bothered by any of the following problems? 1. Little interest or pleasure in doing things: not at all 2. Feeling down, depressed, or hopeless: not at all 3. Trouble falling or staying asleep, or sleeping too much: not at all 4. Feeling tired or having little energy: not at all 5. Poor appetite or overeating: not at all 6. Feeling bad about yourself - or that you are a failure or have let yourself or your family down: not at all 7. Trouble concentrating on things, such as reading the newspaper or watching television: not at all 8. Moving or speaking so slowly that other people could have noticed. Or the opposite - being so fidgety or restless that you have been moving around a lot more than usual: not at all 9. Thoughts that you would be better off or of hurting yourself in some way: not at all Total score: 0 Depression Screening Interpretation: Negative Depression Screening Done: Yes Source: Developed by Drs. Chino Haji, Marcia Perales, Evans Mays and colleagues, with an educational horacio from [employer]. Thrive Questionnaire Date Thrive assessed: 02/23/25 I am a: Patient What is your living situation today?: I have a steady place to live Within the past 12 months, did the food you bought not last and you didn't have the money to get more?: Never true Within the past 12 months, did you worry whether your food would run out before you got money to buy more?: Never true Do you have trouble paying for medicines?: No Do you have trouble getting transportation to medical appointments?: No Do you have trouble paying your heating and electricity bill?: No Do you have trouble taking care of your child, family member or friend?: No Do you have trouble with day-to-day activities such as bathing, preparing meals, shopping, managing finances, etc.?: No Are you currently unemployed and looking for a job?: No Are you interested in more education?: No Please select the resources that you would like help with: None Currently or been in a relationship where the following occur: No concerns reported THRIVE Score: 0 AUDIT C Alcohol Use Questionnaire (AUDIT-C) 1. How often do you have a drink containing alcohol?: Never Total Score: 0 XOCHITL-7 AMB Questionnaire XOCHITL-7 Date XOCHITL - 7 assessed: 02/23/25 Feeling nervous, anxious, or on edge: 0 = Not at all Not being able to stop or control worryin = Not at all Worrying too much about different things: 0 = Not at all Trouble relaxin = Not at all Being so restless that it is hard to sit still: 0 = Not at all Becoming easily annoyed or irritable: 0 = Not at all Feeling afraid as if something awful might happen: 0 = Not at all Total XOCHITL-7 score (0-4 normal; 5-9 mild; 10-14 moderate; 15-21 severe): 0 Source: Developed by Drs. Chino Haji, Marcia Perales, Evans Mays and colleagues, with an educational horacio from [employer]. Physical exam (Primary Care) Vital Signs: Last Vital Signs Temp 97.3 F 02/23/25 15:52 Pulse 78 02/23/25 15:52 BP 110/74 02/23/25 15:52 Pulse Ox 97 02/23/25 15:52 Oxygen Delivery Method Room Air 02/23/25 15:52 BMI result Body Mass Index 30.2 Tobacco/Smoking Status: Tobacco use Status Tobacco use date assessed 02/23/25 02/23/25 15:59 Patient Tobacco Use Status Former Tobacco user 02/23/25 15:49 e-Cigarette/Vaping Use Never Used 02/23/25 15:49 PHQ-9: PHQ-9 Score PHQ-9: Total score 0 02/23/25 16:10 Depression Screening Interpretation: Negative Thrive Assessment: Date of Thrive Assessment Date Thrive assessed 02/23/25 02/23/25 15:59 Currently or been in a relationship where the following occur: No concerns reported Results AMB Hemoglobin A1c AMB Hemoglobin A1c 5.2 % Last Edit by MATIAS Jacobs on 02/23/25 16:26 Results Reviewed Results Reviewed: Laboratory Last Values Hgb A1c (Clinic) 5.2 % (4.0-6.0) 02/23/25 15:59 Coding Level of Care Code Est Pt Level 4 (48846) Complex EM visit Add On G2211 Diagnoses Diabetes mellitus E11.9 Onychomycosis B35.1 Assessment & Plan Assessment & Plan (1) Diabetes mellitus: Code(s): E11.9 - Type 2 diabetes mellitus without complications Category: Medical Plan: Blood sugar in good control. Continue medications at same dosage. (2) Onychomycosis: Code(s): B35.1 - Tinea unguium Category: Medical Plan: Podiatry consult to be obtained for possible treatment. Plan History of Present Illness The patient is a 59-year-old male presenting with multiple health concerns, primarily focusing on nail discoloration indicative of potential onychomycosis. The condition primarily affects the right big toe. The patient has a historical occurrence of nail fungus, effectively treated with terbinafine, and expresses concerns about possible recurrence. He is hesitant to use antifungal medications again due to their known hepatotoxicity risk. The patient also reports a history of diabetes mellitus and osteoarthritis. His diabetes is currently well-controlled with medication. He expresses a lapse in regular exercise for the past few months. Alongside these chronic conditions, he reports itchiness in the ears but no other significant respiratory symptoms, though he previously experienced bronchitis. All these factors were discussed during the visit to address his current health status and potential treatment options. 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 - Family: with two children; one two years and three months old, the other four months old. - Exercise: Not engaged in regular physical activity for the past three to four months. - Sleep: Reported insufficient sleep due to care and rail technician prayers. Review of Systems - Dermatologic: Reports nail color changes on both feet. - Endocrine: Denies new symptoms related to diabetes mellitus. - Musculoskeletal: Reports a history of osteoarthritis; no mention of new symptoms. - Respiratory: Denies cough, wheezing, but reports itchiness in ears. - General: Reports managing morning medications well, but exercise discontinuation noted for the past months. Physical Exam General: Cooperative and healthy appearing Nutritional Appearance: Well nourished Orientation/consciousness: Patient oriented x3 Limitations: No limitations Head: Normal to inspection General: Appearance normal, both eyes and all related structures Neck: Normal visual inspection Chest: Normal palpation of entire chest wall Respiratory: Lungs are clear ormal respiratory effort Neurology: Patient oriented x3 Right foot: Great toe: Nail: Mild dystrophy. Results - Labs: Discussed blood test results reflecting blood glucose levels less than 6. Plan The patient's primary concern regarding nail discoloration will be addressed with a referral to a special investigation unit investigator for a nail culture to determine the presence of onychomycosis. Should treatment with antifungal medication be necessary, liver function monitoring will be required due to potential hepatotoxicity. Diabetes management is progressing well, with further lab work scheduled to monitor cholesterol and blood glucose levels. The patient's chronic osteoarthritis will be re-evaluated during future visits, focusing on symptom management. Patient was informed and verbally consented to the use of an ambient scribe for clinic note documentation during this visit. Discussion Notes I discussed the nature and history of the patient's nail discoloration, which is likely due to fungal infection, necessitating a podiatry referral for definitive testing. The risks and benefits of antifungal treatment, including potential liver toxicity, were explained. We conversed about the patient's diabetes management, acknowledging his improved glucose control and importance of ongoing monitoring. The discussion also covered the patient's lack of recent exercise and sleep challenges due to family commitments, which might influence his current health status. I emphasized the significance of continuity in care and regular follow-ups. Patient Instructions - Schedule an appointment with a special investigation unit investigator for nail culture. - Monitor blood glucose and cholesterol levels; schedule lab work as advised. - Stay consistent with diabetes medications and report any new symptoms. - Consider integrating a regular exercise routine progressively as feasible. - Engage in measures to improve sleep quality, focusing on sleep hygiene. - Follow up as scheduled for reassessment and management of ongoing conditions. Orders: Orders Complete Blood Count no Diff Today E11.9 - Type 2 diabetes mellitus without complications Basic Metabolic Panel Today E11.9 - Type 2 diabetes mellitus without complications Thyroid Stimulating Hormone Today E11.9 - Type 2 diabetes mellitus without complications Hemoglobin A1c Today E11.9 - Type 2 diabetes mellitus without complications AMB Hemoglobin A1c Today E11.9 - Type 2 diabetes mellitus without complications Lipid Panel Today E11.9 - Type 2 diabetes mellitus without complications Liver Panel Today E11.9 - Type 2 diabetes mellitus without complications UA and rflx microscopic Today E11.9 - Type 2 diabetes mellitus without complications Medications: Refilled metformin 500 mg PO BID 180 tabs 1RF 90 days E11.9 - Type 2 diabetes mellitus without complications omeprazole 40 mg PO DAILY 90 caps 3RF
[2025-02-23 15:52] VITALS: BP 110/74; PULSE 78; TEMP 36.3; O2SAT 97; BMI 30.2
--- OUTSIDE RECORDS SUMMARY | 2025-02-23 17:53 | XMS_ITS | Clinical Summary ---
Author Organization [facility] Address [address] [place] [address] Care Team Providers Care Machine Sprayer Name Role Phone Avani Hill ROXY Primary Care Provider [phone] Source Comments PLEASE NOTE, if this patient is a minor, it may be UNLAWFUL to discuss sensitive information that is contained in these records (such as FAMILY PLANNING, MENTAL HEALTH or SUBSTANCE ABUSE) with the minor patient's parent or other person without the patient's specific authorization.[facility] Social History Tobacco Use Types Packs/Day Years Used Date Smoking Tobacco: Never Assessed Social Connections Answer Date Recorded Social Connections and Isolation 0 08/21/2020 Financial Resource Strain Answer Date R ecorded Financial Resource Strain 0 2019 Stress Answer Date Recorded Stress 0 08/21/2020 Physical Activity Answer Date Recorded Physical Activity 0 08/21/2020 Food Insecurity Answer Date Recorded Food 0 08/21/2020 Transportation Needs Answer Date Record ed Transportation 0 08/21/2020 Housing Stability Answer Date Recorded Housing 0 08/21/2020 Safety and Environment Answer Date Buddy rded Safety 0 08/21/2020 Utilities Answer Date Recorded Utilities 0 08/21/2020 Employment Answer Date Recorded Employment 0 08/21/2020 Sex and Gender Information Value Date Recorded Sex Assigned at Not on file Legal Sex Male 8:53 AM PDT Gender Identity Not on file Sexual Orientation Not on file Plan of Treatment Not on file Insurance [place] D[place] [facility] SAFETY NET DENTAL Care Teams Machine Sprayer Relationship Specialty Start Date End Date Avani Hill DMD [address] [facility] [place] [address] PCP - General 01/25/21
== END 2025-02-23 17:04 | disposition home or self-care (01) ==
LOC: HO.HMCH 15:49
PROVIDERS: PCP Internal Medicine; Visit Provider Internal Medicine
DX: E11.9 Type 2 diabetes mellitus without complications (principal); B35.1 Tinea unguium

== ENCOUNTER → 2025-02-23 15:48 | Outpatient (BNVA) | payer OTHER, SELFPAY | PROVIDERS: PCP Internal Medicine; Visit Provider Internal Medicine | DX: E11.9 Type 2 diabetes mellitus without complications (principal); B35.1 Tinea unguium | CPT/HCPCS: 83036; 99212 ==

== ENCOUNTER 2025-02-28 14:17 | Outpatient (AMB) | payer OTHER, SELFPAY ==
--- NOTE | 2025-02-28 14:22 | A.OFFVIS_ITS ---
Vital Signs 02/28/25 14:23 Height 5 ft 10 in Weight 211 lb 10.3 oz BMI 30.4 BP 118/62 Blood Pressure Location Lt brachial Position Sitting Pulse 74 Pulse Source Pulse Oximeter Pulse Oximetry (%) 97 Oxygen Delivery Method Room Air Intake Visit Reasons: Asthma Intake Note: pt says for over a month he has had difficulty breathing Allergies No Known Allergies [No Known Allergies*] Allergy (Verified 02/28/25 14:59) Medication List - Last Reconciled 02/28/25 by Jillian Ordaz MD albuterol sulfate 90 mcg/actuation 2 puffs inhalation Q6-8H PRN 30 days amlodipine 5 mg PO DAILY aspirin 81 mg PO DAILY atorvastatin 80 mg PO DAILY blood sugar diagnostic (FreeStyle Lite Strips) Once a day blood-glucose meter (FreeStyle [place] Lite kit) Check Blood Sugar budesonide-formoterol 160-4.5 mcg/actuation (Symbicort) 2 puffs PO BID clopidogrel 75 mg PO DAILY hydrochlorothiazide 12.5 mg PO DAILY ibuprofen 800 mg PO DAILY PRN lancets (FreeStyle Lancets) bid letrozole 2.5 mg PO DAILY 30 days lidocaine-prilocaine 2.5-2.5 % 1 appl topical DAILY loratadine (Allergy Relief (loratadine)) 10 mg PO DAILY metformin 500 mg PO BID 90 days omeprazole 40 mg PO DAILY sildenafil 100 mg PO ONCE PRN 30 days Do you need a note to return to daycare/school/sports/work: No HPI HPI Asthma: Details: 59 years old, gentleman, with past history of smoking for about 15 years, . Quit 2 years ago Does have chronic asthma/COPD. And had responded well to use of Symbicort. He has tendency to develop nasal congestion and postnasal drip off and on, due to low-grade allergy. Was last seen by me about a year ago. 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 For the past 2 weeks complains of increased cough with shortness of breath. No fever or chills. He does have mild congestion in the nasopharynx . He has been using Symbicort 2 puffs but only once a day. Has been using albuterol a few times per day. [facility] Medical History Onychomycosis Asthma with COPD COPD (chronic obstructive pulmonary disease) Acute bronchitis and bronchiolitis Dyslipidemia Chronic pain syndrome Knee osteoarthritis Anal pain Arthritis GERD (gastroesophageal reflux disease) Surgical History History of cardiac cath Hx of esophagogastroduodenoscopy Hx of inguinal hernia repair H/O colonoscopy Family History Mother No problems noted. Father Heart attack Social History Household Members: Spouse and Children Housing: House Alcohol intake: former Patient Tobacco Use Status: Former Tobacco user Years Smoked: 15 +/- e-Cigarette/Vaping Use: Never Used Second Hand Smoke Exposure: Yes service: No Current occupational status: unemployed Cognitive needs: No Hearing needs: No Vision needs: No Review of Systems Const All systems reviewed & are unremarkable except as noted in HPI and below Eyes Reports no additional complaints ENT Reports nasal congestion and Reports nasal discharge Card Denies chest pain at rest, Denies irregular heart rhythm and Denies leg edema Resp Reports as per HPI GI Reports heartburn (GERD symptoms controlled with omeprazole) Reports no additional complaints Musc Reports back pain (Chronic, uses stimulator.) Skin/Breast Reports system reviewed and no additional complaints, except as documented Neuro Reports no additional complaints Psych Reports no additional complaints Physical Exam Vital Signs: Last Vital Signs Pulse 74 02/28/25 14:23 BP 118/62 02/28/25 14:23 Pulse Ox 97 02/28/25 14:23 Oxygen Delivery Method Room Air 02/28/25 14:23 BMI result Body Mass Index 30.4 Const General: healthy appearing, comfortable (But does have frequent cough during conversation.), no acute distress, alert and awake Orientation/consciousness: patient oriented x3 HEENT Head: Yes normal to inspection General nose exam: No nasal polyps present, No nasal discharge present and Other nasal findings present (Mild nasal congestion is noted) Face and sinus: Yes sinuses nontender Mouth: oropharynx normal Throat: Yes posterior oropharynx normal Eyes General: appearance normal, both eyes and all related structures Neck Neck: Yes normal visual inspection, Yes no lymphadenopathy, Yes trachea midline and Yes no JVD Thyroid: Thyroid normal Chest Chest palpation & inspection: normal inspection of the chest, normal palpation of entire chest wall and no tenderness Resp Other: Breath sounds are equal on both sides, slightly distant and prolonged expiratory phase. There is no definite tenderness on the chest. Lungs are clear on both size without any wheezes or crepitations. Cardio Palpation: normal PMI Rate: regular rate Rhythm: regular rhythm Heart sounds: no gallops and no murmurs Peripheral pulses: Peripheral pulses 2+ throughout GI Palpation (GI): Soft to palpation, nontender, No hepatosplenomegaly present and no masses Auscultation: normal bowel sounds Back/Spine/Pelvis Thoracic/Lumbar Spine: thoracic and lumbar spine normal to inspection and thoraco-lumbar ROM limited Skin General skin exam: no rashes or lesions noted Neuro General: patient oriented x3 and no focal motor deficits Cranial nerves: Yes CN's II-XII intact bilaterally Extrem General: Yes normal to inspection, Yes no clubbing, cyanosis or edema and Yes no calf tenderness Psych Appearance: grossly normal and well kempt Speech and movement: Normal speech and movement present Assessment & Plan Assessment & Plan (1) Asthma with COPD: Comment: Intermittent cough and mild shortness of breath on exertion secondary to COPD due to his previous smoking. In addition he has component of bronchial asthma. . Results of PFT . Are again reviewed . Currently he has increased symptoms probably due to low-grade bronchitis. Code(s): J44.9 - Chronic obstructive pulmonary disease, unspecified Category: Medical Plan: Advised to use Symbicort 160-4.52 puffs b.i.d.. Albuterol HFA 2 puffs Q 6 hours p.r.n.. Low-dose prednisone for 10 days. (2) Cough: Comment: Cough is definitely improved but still has mild intermittent bouts of cough, most likely related to COPD. Continue the treatment as noted under COPD. Code(s): R05.9 - Cough, unspecified Category: Medical Plan: Continue treatment as noted above . Medications: New prednisone 5 mg PO BID 10 days 20 tabs 1RF Copd Excerbation Changed From budesonide-formoterol 160-4.5 mcg/actuation (Symbicort) 2 puffs PO BID 10.2 grams 1RF for asthma To budesonide-formoterol 160-4.5 mcg/actuation (Symbicort) 2 puffs PO BID 30 days 10.2 grams 5RF for asthma/copd Coding Level of Care Code Est Pt Level 3 (67424) Diagnoses Asthma with COPD J44.9 Cough R05.9
[2025-02-28 14:23] VITALS: BP 118/62; PULSE 74; O2SAT 97; BMI 30.4
--- OUTSIDE RECORDS SUMMARY | 2025-02-28 17:31 | XMS_ITS | Clinical Summary ---
Author Organization [facility] Address [address] [place] [address] Care Team Providers Care Industrial Roofer Helper Name Role Phone Avani Hill ROXY Primary Care Provider [phone] Source Comments PLEASE NOTE, if this patient [...] Plan of Treatment Not on file Insurance [place] MEDICA[place] DENT[place] [facility] SAFETY NET DENTAL Care Teams Industrial Roofer Helper Relationship Specialty Start Date End Date [facility] Hill DMD [address] [facility] [place] [address] PCP - General 01/25/21
== END 2025-02-28 15:03 | disposition home or self-care (01) ==
LOC: HO.HPS 14:17
PROVIDERS: PCP Internal Medicine; Visit Provider Internal Medicine
DX: J44.9 Chronic obstructive pulmonary disease, unspecified (principal); R05.9 Cough, unspecified
CPT/HCPCS: 99213

== ENCOUNTER → 2025-02-28 14:17 | Outpatient (BNVA) | payer OTHER, SELFPAY | PROVIDERS: PCP Internal Medicine; Visit Provider Internal Medicine | DX: J44.9 Chronic obstructive pulmonary disease, unspecified (principal) | CPT/HCPCS: 99212 ==

== ENCOUNTER 2025-04-26 14:41 | Outpatient (AMB) | payer OTHER, SELFPAY ==
[2025-04-26 14:47] VITALS: BP 110/70; PULSE 75; O2SAT 96; BMI 31.3
--- NOTE | 2025-04-26 14:47 | A.OFFVIS_ITS ---
Vital Signs 04/26/25 14:47 Height 5 ft 10 in Weight 218 lb BMI 31.3 BP 110/70 Blood Pressure Location Lt brachial Position Sitting Pulse 75 Pulse Source Pulse Oximeter Pulse Oximetry (%) 96 Oxygen Delivery Method Room Air Intake Visit Reasons: Asthma Intake Note: pt is here for follow up and states he cannot take a deep breath Building Services Supervisor Required: No Allergies No Known Allergies [No Known Allergies*] Allergy (Verified 04/26/25 14:50) PFSH Medical History Dyspnea Onychomycosis Asthma with COPD COPD (chronic obstructive pulmonary disease) Acute bronchitis and bronchiolitis Dyslipidemia Chronic pain syndrome Knee osteoarthritis Anal pain Arthritis GERD (gastroesophageal reflux disease) Surgical History History of cardiac cath Hx of esophagogastroduodenoscopy Hx of inguinal hernia repair H/O colonoscopy (~11/14/20) Family History Mother No problems noted. Father Heart attack Social History Household Members: Spouse and Children Housing: House Alcohol intake: former Patient Tobacco Use Status: Former Tobacco user Years Smoked: 15 +/- e-Cigarette/Vaping Use: Never Used Second Hand Smoke Exposure: Yes service: No Current occupational status: unemployed Cognitive needs: No Hearing needs: No Vision needs: No Physical Exam Vital Signs: Last Vital Signs Pulse 75 04/26/25 14:47 BP 110/70 04/26/25 14:47 Pulse Ox 96 04/26/25 14:47 Oxygen Delivery Method Room Air 04/26/25 14:47 BMI result Body Mass Index 31.3 Assessment & Plan Assessment & Plan (1) Cough: Comment: Cough is definitely improved but still has mild intermittent bouts of cough, most likely related to asthma/COPD. Code(s): R05.9 - Cough, unspecified Category: Medical Plan: Continue the treatment as noted under COPD. (2) Asthma with COPD: Comment: Intermittent cough and mild shortness of breath on exertion secondary to COPD due to his previous smoking. In addition he has component of bronchial asthma. .Results of PFT . Are again reviewed . ADVISE THAT HE DOES HAVE MILD RESTRICTIVE PULMONARY DISEASE IN ADDITION TO BRONCHIAL ASTHMA. Code(s): J44.9 - Chronic obstructive pulmonary disease, unspecified Category: Medical Plan: CONTINUE SYMBICORT 160-4.52 PUFFS B.I.D. USE ALBUTEROL HFA 2 PUFFS Q 6 HOURS P.R.N. (3) Dyspnea: Comment: IN SPITE OF APPROPRIATE TREATMENT, HE CONTINUES TO HAVE DIFFICULTY IN TAKING A DEEP BREATH, AND HE ALSO COMPLAINS OF GETTING SHORT OF BREATH MORE EASILY THAN BEFORE. IT MAY BE PARTLY BECAUSE HE HAS PUT ON 8 LB OF WEIGHT. THERE IS ALSO POSSIBILITY THAT HE MAY HAVE SOME DEGREE OF INTERSTITIAL LUNG DISEASE. Code(s): R06.00 - Dyspnea, unspecified Category: Medical Plan: CT SCAN OF THE CHEST IS ORDERED. TRY TO LOSE 8-10 LB OF WEIGHT DO DEEP BREATHING EXERCISES 3 TIMES A DAY Orders: Orders CT chest wo IV con Today J44.9 - Chronic obstructive pulmonary disease, unspeci fied, R05.9 - Cough, unspecified, R06.00 - Dyspnea, unspecified Coding Level of Care Code Est Pt Level 3 (92108) Diagnoses Cough R05.9 Asthma with COPD J44.9 Dyspnea R06.00
--- OUTSIDE RECORDS SUMMARY | 2025-04-26 16:51 | XMS_ITS | Clinical Summary ---
Author Organization [facility] Address [address] [place] [address] Care Team Providers Care Patient Ambassador Name Role Phone Avani Hill ROXY Primary Care Provider [phone] Source Comments PLEASE NOTE, if this patient [...] Plan of Treatment Not on file [place] D[place] [facility] SAFETY NET DENTAL Care Teams Patient Ambassador Relationship Specialty Start Date End Date Avani Hill DMD [address] [facility] [place] [address] PCP - General 01/25/21
== END 2025-04-26 15:10 | disposition home or self-care (01) ==
LOC: HO.HPS 14:42
PROVIDERS: PCP Internal Medicine; Visit Provider Internal Medicine
DX: R05.9 Cough, unspecified (principal); J44.9 Chronic obstructive pulmonary disease, unspecified; R06.00 Dyspnea, unspecified
CPT/HCPCS: 99213

== ENCOUNTER → 2025-04-26 14:41 | Outpatient (BNVA) | payer OTHER, SELFPAY | PROVIDERS: PCP Internal Medicine; Visit Provider Internal Medicine | DX: R06.00 Dyspnea, unspecified (principal); I10 Essential (primary) hypertension; R05.9 Cough, unspecified; J44.9 Chronic obstructive pulmonary disease, unspecified | CPT/HCPCS: 93005; 99212 ==

== ENCOUNTER 2025-04-26 15:21 | Outpatient (AMB) | payer OTHER, SELFPAY ==
[2025-04-26 15:31] VITALS: BP 110/66; PULSE 72; BMI 30.9
--- NOTE | 2025-04-26 15:31 | A.OFFVIS_ITS ---
Vital Signs 04/26/25 15:31 Height 5 ft 10 in Weight 215 lb 9.793 oz BMI 30.9 BP 110/66 Blood Pressure Location Lt brachial Position Sitting Pulse 72 Pulse Source Monitor Intake Visit Reasons: 4 month f/up rs from 02/15/25 Intake Note: 4 mth f/up Blogs Manager Required: No Accompanied by: Self / Same As Patient Allergies No Known Allergies [No Known Allergies*] Allergy (Verified 04/26/25 14:50) Medication List - Last Reconciled 04/26/25 by Carlos Raymundo MD albuterol sulfate 90 mcg/actuation 2 puffs inhalation Q6-8H PRN 30 days alclometasone 0.05% 1 appl topical BID PRN amlodipine 5 mg PO DAILY aspirin 81 mg PO DAILY atorvastatin 80 mg PO DAILY blood sugar diagnostic (FreeStyle Lite Strips) Once a day blood-glucose meter (FreeStyle [place] Lite kit) Check Blood Sugar budesonide-formoterol 160-4.5 mcg/actuation (Symbicort) 2 puffs PO BID 30 days clopidogrel 75 mg PO DAILY diclofenac sodium 1% 2 grams topical QID hydrochlorothiazide 12.5 mg PO DAILY ibuprofen 800 mg PO DAILY PRN lancets (FreeStyle Lancets) bid letrozole 2.5 mg PO DAILY 30 days lidocaine-prilocaine 2.5-2.5 % 1 appl topical DAILY loratadine (Allergy Relief (loratadine)) 10 mg PO DAILY metformin 500 mg PO BID 90 days omeprazole 40 mg PO DAILY prednisone 5 mg PO BID PRN sildenafil 100 mg PO ONCE PRN 30 days HPI Comments Details: 59-year-old gentleman who is here for follow-up. He has history of hypertension and has been experiencing chest discomfort. He is describing how pressure-like feeling on the left side of chest which happens randomly. He feels very tired after this and has to lay down. His symptoms has been happening for some time and he is getting them quite frequently. Previously underwent stress testing where he had a hypertensive response to exercise without any significant symptoms. He was started on amlodipine hydrochlorothiazide his blood pressure is improved since. Continues to get chest pains on the left side which are quite concerning. His recently diagnosed with hyperlipidemia as well as diabetes. His hemoglobin A1c is 8. After discussion he was taken for cardiac catheterization. Cardiac catheterization showed multivessel disease including severe LAD as well as 70% circumflex and distal right coronary artery stenosis. We discussed about bypass surgery versus PCI and patient opted for PCI. We treated the LAD with a drug-eluting stent. 09/07/23: He returns for follow-up today. Unfortunately had a fall recently breaking ribs on the right side as well as lower back injury. He is recovering from that. He has been using ibuprofen up to b.i.d.. He has some dyspnea with activities but denying any significant chest discomfort like he was getting before LAD PCI. Taking medications regularly. Blood pressure control is good. 01/11/24: He returns for follow-up. He has been doing well. Blood pressure is elevated. He has been taking medications regularly. He also has been quite compliant with salt intake and exercising regularly. He is taking sumatriptan off and on for headaches. I have advised him not to take sumatriptan anymore. 05/11/2024: He is here for follow-up. He was getting some GI upset with the amlodipine 10 mg at bedtime and he has decrease the dose to 5 mg daily which has improved his symptoms. He also has been experiencing some arm discomfort and chest discomfort when he is under stress. He recently lost his younger brother. He also had some injury to his leg and is not as active as before. He is saying that walking around he does not get any symptoms but when he is under emotional stress he feels uneasy feeling in his chest and arm discomfort. As mentioned above he has known history of coronary disease with previous LAD PCI and had residual disease in circumflex and right coronary artery. 08/22/2024: He is here for follow-up. Blood pressure is well controlled. EKGs normal. He is saying that he has been experiencing some arm discomfort off and on. He thinks that this is because he felt funny. He also had episode of shortness of breath while he was at home and he had to open the windows to breathe better. He said everyone else was fine and I just felt like that. He is not endorsing the classic chest discomfort he was getting before but has significant new symptoms. He has residual circumflex and RCA stenosis in the past. Blood pressure as mentioned is well controlled. 04/26/2025: He is here for follow-up. Denying chest discomfort. Taking medications regularly. No bleeding. He has been concern is dyspnea with activities and is unable to take a deep breath. He is getting workup with pulmonology. [facility] Medical History Dyspnea Onychomycosis Asthma with COPD COPD (chronic obstructive pulmonary disease) Acute bronchitis and bronchiolitis Dyslipidemia Chronic pain syndrome Knee osteoarthritis Anal pain Arthritis GERD (gastroesophageal reflux disease) Surgical History History of cardiac cath Hx of esophagogastroduodenoscopy Hx of inguinal hernia repair H/O colonoscopy (~11/14/20) Family History Mother No problems noted. Father Heart attack Social History Household Members: Spouse and Children Housing: House Alcohol intake: former Patient Tobacco Use Status: Former Tobacco user Years Smoked: 15 +/- e-Cigarette/Vaping Use: Never Used Second Hand Smoke Exposure: Yes service: No Current occupational status: unemployed Cognitive needs: No Hearing needs: No Vision needs: No Review of Systems Const Denies chills, Denies fatigue, Denies fever(s), Denies frequent falls, Denies weakness, Denies weight gain and Denies weight loss ENT Denies dizziness Card Denies chest pain, Denies leg edema, Denies lightheadedness, Denies palpitations, Denies dyspnea and Denies dyspnea on exertion Resp Denies cough, Denies dyspnea and Denies dyspnea on exertion GI Denies hematochezia Musc Denies abnormal gait, Denies muscle weakness, Denies numbness, Denies radiating pain into limb and Denies tingling Neuro Denies abnormal gait, Denies dizziness, Denies frequent falls, Denies numbness, Denies tingling and Denies weakness Endo Denies fatigue and Denies palpitations Physical Exam Vital Signs: Last Vital Signs Pulse 72 04/26/25 15:31 BP 110/66 04/26/25 15:31 BMI result Body Mass Index 30.9 GENERAL APPEARANCE: in no acute distress, pleasant. NECK: no carotid bruit, no jugular venous distention. SKIN: no suspicious lesions, warm and dry. HEART: no murmurs, regular rate and rhythm. LUNGS: clear to auscultation bilaterally. ABDOMEN: soft, nontender. EXTREMITIES: no edema. PERIPHERAL PULSES: equal. NEUROLOGIC: No gross deficits, AAO X 3 Office Procedures EKG Details: Sinus rhythm 72 beats per minute, normal axis, left ventricular hypertrophy, QTC 422 milliseconds. [id number], Complete Assessment & Plan Assessment & Plan (1) Dyspnea: Comment: IN SPITE OF APPROPRIATE TREATMENT, HE CONTINUES TO HAVE DIFFICULTY IN TAKING A DEEP BREATH, AND HE ALSO COMPLAINS OF GETTING SHORT OF BREATH MORE EASILY THAN BEFORE. IT MAY BE PARTLY BECAUSE HE HAS PUT ON 8 LB OF WEIGHT. THERE IS ALSO POSSIBILITY THAT HE MAY HAVE SOME DEGREE OF INTERSTITIAL LUNG DISEASE. Code(s): R06.00 - Dyspnea, unspecified Category: Medical (2) Essential hypertension: Code(s): I10 - Essential (primary) hypertension Category: Medical Plan [age] year gentleman who is here for follow-up. He has a known history of coronary artery disease with previous PCI. Blood pressure is well controlled. He does not have any anginal symptoms currently. He has dyspnea with activities and he is unable to take a deep breath. These symptoms are quite unusual and he is getting further workup with pulmonology. He is due to get a CAT scan. From cardiovascular point of view, he has been stable. I have advised him to continue same medications for now. Follow up with us in 4 months. Thank you for allowing me to participate in the care of your patient. Please feel free to contact me if you have any questions. Coding Level of Care Code Est Pt Level 3 (71718) Complex EM visit Add On G2211 Diagnoses Dyspnea R06.00 Essential hypertension I10 CPT Codes EKG - CPT: [id number]-[id number], Complete ([id number])
== END 2025-04-26 15:59 | disposition home or self-care (01) ==
LOC: HO.HCS 15:21
PROVIDERS: PCP Internal Medicine; Visit Provider Internal Medicine Cardiovascular Disease
DX: R06.00 Dyspnea, unspecified (principal); I10 Essential (primary) hypertension
CPT/HCPCS: 93010; 99213; G2211

== ENCOUNTER 2025-05-13 08:52 | Outpatient (REF) | payer OTHER, SELFPAY ==
--- NOTE | ~2025-05-13 | XR_ITS ---
EXAMINATION: XR CHEST 2 VIEWS HISTORY: R05.9 - Cough, unspecified COMPARISON: Comparison is made with the prior examination dated 08/31/2023. FINDINGS: PA and lateral views of the chest are submitted. The lungs are expanded and clear. There is no pleural effusion, pneumothorax, or pulmonary vascular congestion. The heart is normal in size. The bones are intact. XR/XR chest 2V IMPRESSION: No acute cardiopulmonary abnormality. Electronically signed by: Chino More MD 05/15/2025 07:45 AM EDT
--- OUTSIDE RECORDS SUMMARY | 2025-05-13 08:54 | XMS_ITS | Clinical Summary ---
Author Organization [facility] Address [address] [place] [address] Care Team Providers Care Mortgage Professional Name Role Phone Avani Hill ROXY Primary Care Provider [phone] Source Comments PLEASE NOTE, if this patient [...] Plan of Treatment Not on file Insurance [place] MEDICAID DENTAL [facility] SAFETY NET DENTAL Care Teams Mortgage Professional Relationship Specialty Start Date End Date Avani Hill DMD [address] [facility] [place] [address] PCP - General 01/25/21
[2025-05-13 09:14] LABS: Hematocrit 39.1 % (42.0-52.0); Hemoglobin 12.7 g/dl (14.0-18.0); Mean Corpuscular HGB Conc 32.5 g/dl (31.0-36.0); Mean Corpuscular Volume 89.3 fL (80.0-98.0); Mean Platelet Volume 10.1 fL (9.4-12.4); Platelet Count 245 X10*3/uL (160-400); Red Blood Count 4.38 X10*6/uL (4.60-5.80); Red Cell Distribution Width 12.1 % (11.0-16.0); White Blood Count 7.6 X10*3/uL (4.8-10.8)
[2025-05-13 09:27] LABS: Estimated Average Glucose 97 mg/dL; Hemoglobin A1C 104.9334 umol/L
[2025-05-13 09:55] LABS: Alanine Aminotransferase 34 U/L (0-40); Albumin Level 4.7 g/dL (3.5-5.0); Alkaline Phosphatase 92 U/L (39-117); Anion Gap 13 (12-20); Aspartate Amino Transferase 22 U/L (5-37); Bilirubin Direct 0.2 mg/dL (0.0-0.5); Bilirubin Total 0.6 mg/dL (0.0-1.0); Blood Urea Nitrogen 17 mg/dL (9-16); Carbon Dioxide 27 mmol/L (22-29); Chloride 101 mmol/L (96-108); Cholesterol 110 mg/dL (<200); Estimated Glomerular Filt Rate > 60; Glucose Random 106 mg/dL (60-115); HDL Cholesterol 42 mg/dL (>40); LDL Cholesterol Calculated 56 mg/dL (<100); Sodium 137 mmol/L (135-145); Total Protein 7.3 g/dL (6.5-8.0); Triglycerides 63 mg/dL (<150)
[2025-05-13 10:14] LABS: Thyroid Stimulating Hormone 1.58 uIU/mL (0.32-4.0)
[2025-05-13 10:34] LABS: Appearance Urine Clear; Color Urine Yellow; Glucose Urine UA Negative (Negative); Leukocyte Esterase Urine Negative (Negative); Nitrite Urine Negative (Negative); PH 5.5 (5.0-9.0); Urine Blood Negative (Negative); Urine Ketones Negative (Negative); Urine Protein Negative (Neg-Trace)
== END 2025-05-13 08:53 | disposition home or self-care (01) ==
LOC: HO.XRAY 08:52
PROVIDERS: Absent Provider Internal Medicine; PCP Internal Medicine; Visit Provider Internal Medicine
DX: E11.9 Type 2 diabetes mellitus without complications (principal); R05.9 Cough, unspecified; J44.9 Chronic obstructive pulmonary disease, unspecified; R07.81 Pleurodynia
CPT/HCPCS: 36415; 71046; 80048; 80061; 80076; 81003; 83036; 84443; 85027

== ENCOUNTER → 2025-05-13 09:10 | Outpatient (BNV) | payer OTHER, SELFPAY | PROVIDERS: Absent Provider Internal Medicine; PCP Internal Medicine; Visit Provider Radiology Diagnostic Radiology | DX: R05.9 Cough, unspecified (principal) | CPT/HCPCS: 71046 ==

== ENCOUNTER 2025-06-12 09:38 | Outpatient (REF) | payer OTHER, SELFPAY ==
--- OUTSIDE RECORDS SUMMARY | 2025-06-12 10:30 | XMS_ITS | Clinical Summary ---
Author Organization [facility] Address [address] [place] [address] Care Team Providers Care Enchilada Maker Name Role Phone Avani Hill ROXY Primary Care Provider [phone] Source Comments PLEASE NOTE, if this patient [...] Plan of Treatment Not on file Insurance [place] MEDICAID DENTAL [facility] SAFETY NET DENTAL Care Teams Enchilada Maker Relationship Specialty Start Date End Date Avani Hill DMD [address] [facility] [place] [address] PCP - General 01/25/21
[2025-06-12 12:00] LABS: Prostate Specific Antigen 0.52 ng/mL (<0.05-4.0)
[2025-06-16 21:48] LABS: Testosterone, Free 25.6 pg/mL (35.0-155.0)
== END 2025-06-12 09:39 | disposition home or self-care (01) ==
LOC: HO.LAB 09:38
PROVIDERS: PCP Internal Medicine; Visit Provider Urology
DX: E11.69 Type 2 diabetes mellitus with other specified complication (principal); E29.1 Testicular hypofunction; N52.1 Erectile dysfunction due to diseases classified elsewhere
CPT/HCPCS: 36415; 84153; 84402; 84403

== ENCOUNTER 2025-06-20 15:15 | Outpatient (AMB) | payer OTHER, SELFPAY ==
--- NOTE | 2025-06-20 15:22 | A.OFFVIS_ITS ---
Intake Visit Reasons: 1y/PSA/Testo Intake Note: Patient is Present for 1 yr follow up Urology Med: Sildenafil, Letrozole Antibiotic Allergy:None Blood Thinner: Aspirin, Clopidogrel Diabetic Medication: Metformin Labs done : 06/12/2025 PSA :0.52, Total testosterone:160, Fr Testosterone :25.6 Steel Fabricating Supervisor Required: No Accompanied by: Self / Same As Patient Allergies No Known Allergies (No Known Allergies*) Allergy (Verified 06/20/25 15:24) HPI Comments Details: Virgil is a [place] male. He is a patient of Dr. Coy. He is seen for the following urologic conditions - hypogonadism - erectile dysfunction - male infertility Yearly follow-up Has done extremely well managing his diabetes Discussed borderline low testosterone Does achieve nocturnal erections At this point will hold off testosterone replacement as he has young children and does not want to have an increased libido Lab work 06/08 T 233, 06/09 T160, free T 25, HbA1c 5.0 Diabetic on metformin Based on T4DM study would suggest boosting testosterone to 600 range 06/07 cardiac catheterization showed multivessel disease including severe LAD as well as 70% circumflex and distal right coronary artery stenosis - with Dr Jensen Previously - Has undergone repeat semen analysis - Has been on hCG 500 IU 2 times a week - was able to get and had a baby girl 01/08 Hypogonadism: He presents today for further evaluation and followup of his hypogonadism. Initial symptoms include erectile dysfunction Yes decreased libido Yes change in mood/depression Yes in muscle size/strength Yes increased fatigue/malaise Yes The onset of symptoms has been gradual. Erectile status baseline VIRGIE Score 06/04 - T 216 FSH 14 Prolactin 31, T195, 08/05 325, 11/04 487, 05/06 80 - 10/08 P 0.4 Prior therapy clomiphene - Elevated estradiol with side effects Side effect with cialis - muscle weakness - 5mg Male Infertility: Male infertility Normalized T with letrozole Was able to conceive [facility] on [facility] Medical History Dyspnea Onychomycosis Asthma with COPD COPD (chronic obstructive pulmonary disease) Acute bronchitis and bronchiolitis Dyslipidemia Chronic pain syndrome Knee osteoarthritis Anal pain Arthritis GERD (gastroesophageal reflux disease) Surgical History History of cardiac cath Hx of esophagogastroduodenoscopy Hx of inguinal hernia repair H/O colonoscopy (~11/14/20) Family History Mother No problems noted. Father Heart attack Social History Household Members: Spouse and Children Housing: House Alcohol intake: former Patient Tobacco Use Status: Former Tobacco user Years Smoked: 15 +/- e-Cigarette/Vaping Use: Never Used Second Hand Smoke Exposure: Yes service: No Current occupational status: unemployed Cognitive needs: No Hearing needs: No Vision needs: No Review of Systems Const Denies chills and Denies fever(s) Card Reports no additional complaints and Denies syncope Resp Denies cough GI Denies abdominal pain and Denies heartburn Reports as per HPI and Denies change in libido Neuro Denies syncope Psych Denies change in libido Endo Denies change in libido Physical Exam Const General: cooperative, healthy appearing, comfortable and no acute distress Orientation/consciousness: patient oriented x3 HEENT Face and sinus: Yes normal facial exam Mouth: moist mucous membranes Neck Neck: Yes normal visual inspection, Yes full ROM and Yes trachea midline Chest Chest palpation & inspection: normal inspection of the chest Resp Effort & Inspection: normal respiratory effort, able to speak in complete s entences and no respiratory distress GI Inspection: Yes normal to inspection Back/Spine/Pelvis Cervical Spine: normal cervical lordosis Thoracic/Lumbar Spine: thoracic and lumbar spine normal to inspection Skin General skin exam: no rashes or lesions noted Neuro General: patient oriented x3, gait normal, tone normal and moves all extremities Extrem General: Yes normal to inspection and Yes capillary refill normal Assessment & Plan Assessment & Plan (1) Erectile dysfunction due to arterial insufficiency: Code(s): N52.01 - Erectile dysfunction due to arterial insufficiency Category: Medical (2) Male infertility: Code(s): N46.9 - Male infertility, unspecified Category: Medical (3) Hypogonadism in male: Code(s): E29.1 - Testicular hypofunction Category: Medical Plan Twelve month follow-up lab work Orders: Orders Prostate Specific Antigen 12 Months E29.1 - Testicular hypofunction Testosterone, Total 12 Months E29.1 - Testicular hypofunction Patient Instructions: This note is constructed using voice recognition software. While every effort has been made to ensure accuracy boom supervisor errors may have been included. Imaging studies, laboratory and physical exam results were discussed and reviewed in detail. No major barriers to patient understanding were identified. An opportunity to ask questions regarding the treatment plan was provided. All questions were answered. The patient expressed understanding and agreement with the above treatment plan. The patient is aware they should contact our office by phone for worsening of their current condition or the appearance of new urologic symptoms. Compliance is encouraged with any medications and followup testing that is ordered. It is a privilege to participate in the urologic care of your patient. If you have any questions or concerns regarding treatment for the above conditions, or other urologic issues, please do not hesitate to contact me. The office telephone contact is [phone]. Sincerely, Dr José Miguel Mcgraw MD, [facility] - Urology Compassionate Specialist Care for the Genitourinary System Coding Level of Care Code Est Pt Level 4 (12594) Diagnoses Erectile dysfunction due to arterial insufficiency N52.01 Male infertility N46.9 Hypogonadism in male E29.1
--- OUTSIDE RECORDS SUMMARY | 2025-06-20 15:45 | XMS_ITS | Clinical Summary ---
Author Organization [facility] Address [address] [place] [address] Care Team Providers Care Remote Sensing Technologist Name Role Phone Avani Hill ROXY Primary Care Provider Source Comments PLEASE NOTE, if this patient [...] Plan of Treatment Not on file Insurance [place] MEDICAID DENTAL [facility] SAFETY NET DENTAL Care Teams Remote Sensing Technologist Relationship Specialty Start Date End Date Avani Hill DMD [address] [facility] [place] [address] PCP - General 01/25/21
== END 2025-06-20 16:00 | disposition home or self-care (01) ==
LOC: HO.HUSH 15:15
PROVIDERS: PCP Internal Medicine; Visit Provider Urology
DX: N52.01 Erectile dysfunction due to arterial insufficiency (principal); N46.9 Male infertility, unspecified; E29.1 Testicular hypofunction
CPT/HCPCS: 99214

== ENCOUNTER → 2025-06-20 15:15 | Outpatient (BNVA) | payer OTHER, SELFPAY | PROVIDERS: PCP Internal Medicine; Visit Provider Urology | DX: E29.1 Testicular hypofunction (principal); N52.01 Erectile dysfunction due to arterial insufficiency; N46.9 Male infertility, unspecified | CPT/HCPCS: 99212 ==

== ENCOUNTER 2025-07-12 09:44 | Outpatient (AMB) | payer OTHER, SELFPAY ==
[2025-07-12 10:01] VITALS: BP 120/72; PULSE 75; O2SAT 99; BMI 31.8
--- NOTE | 2025-07-12 10:01 | MHC.OFFVIS ---
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5 mg PO DAILY ibuprofen 800 mg PO DAILY PRN lancets (FreeStyle Lancets) bid letrozole 2.5 mg PO DAILY 30 days loratadine (Allergy Relief (loratadine)) 10 mg PO DAILY metformin 500 mg PO BID 90 days omeprazole 40 mg PO DAILY prednisone 5 mg PO BID PRN sildenafil 100 mg PO ONCE PRN 30 days triamcinolone acetonide 0.1% 1 appl topical DAILY HPI HPI Asthma: Details: He has past history of smoking but does not smoke anymore since about 5 years. He does have evidence of mild to moderate obstructive airway disorder with partial reversibility after bronchodilator therapy ACOS . He has been doing well with the use of Symbicort 2 puffs b.i.d., And albuterol just p.r.n.. He also has mild hypertension and associated coronary artery disease. 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 He has put on about 5-10 lb of weight. His main issue is that he gets short of breath very easily, and at nighttime when he tries to go to sleep he feels his chest somewhat congested which clears after using albuterol inhaler . [facility] Medical History Dyspnea Onychomycosis Asthma with COPD COPD (chronic obstructive pulmonary disease) Acute bronchitis and bronchiolitis Dyslipidemia Chronic pain syndrome Knee osteoarthritis Anal pain Arthritis GERD (gastroesophageal reflux disease) Surgical History History of cardiac cath Hx of esophagogastroduodenoscopy Hx of inguinal hernia repair H/O colonoscopy (~11/14/20) Family History Mother No problems noted. Father Heart attack Social History Household Members: Spouse and Children Housing: House Alcohol intake: former Patient Tobacco Use Status: Former Tobacco user Years Smoked: 15 +/- e-Cigarette/Vaping Use: Never Used Second Hand Smoke Exposure: Yes service: No Current occupational status: unemployed Cognitive needs: No Hearing needs: No Vision needs: No Review of Systems Const All systems reviewed & are unremarkable except as noted in HPI and below Eyes Reports no additional complaints ENT Reports nasal congestion and Reports nasal discharge Card Denies chest pain at rest, Denies irregular heart rhythm and Denies leg edema Resp Reports as per HPI GI Reports heartburn (GERD symptoms controlled with omeprazole) Reports no additional complaints Musc Reports back pain (Chronic, uses stimulator.) Skin/Breast Reports system reviewed and no additional complaints, except as documented Neuro Reports no additional complaints Psych Reports no additional complaints Physical Exam Vital Signs: Last Vital Signs Pulse 75 07/12/25 10:01 BP 120/72 07/12/25 10:01 Pulse Ox 99 07/12/25 10:01 Oxygen Delivery Method Room Air 07/12/25 10:01 BMI result Body Mass Index 31.8 Const General: healthy appearing, comfortable (But does have frequent cough during conversation.), no acute distress, alert and awake Orientation/consciousness: patient oriented x3 HEENT Head: Yes normal to inspection General nose exam: No nasal polyps present, No nasal discharge present and Other nasal findings present (Mild nasal congestion is noted) Face and sinus: Yes sinuses nontender Mouth: oropharynx normal Throat: Yes posterior oropharynx normal Eyes General: appearance normal, both eyes and all related structures Neck Neck: Yes normal visual inspection, Yes no lymphadenopathy, Yes trachea midline and Yes no JVD Thyroid: Thyroid normal Chest Chest palpation & inspection: normal inspection of the chest, normal palpation of entire chest wall and no tenderness Resp Other: Breath sounds are equal on both sides, slightly distant and prolonged expiratory phase. There is no definite tenderness on the chest. Lungs are clear on both size without any wheezes or crepitations. Cardio Palpation: normal PMI Rate: regular rate Rhythm: regular rhythm Heart sounds: no gallops and no murmurs Peripheral pulses: Peripheral pulses 2+ throughout GI Palpation (GI): Soft to palpation, nontender, No hepatosplenomegaly present and no masses Auscultation: normal bowel sounds Back/Spine/Pelvis Thoracic/Lumbar Spine: thoracic and lumbar spine normal to inspection and thoraco-lumbar ROM limited Skin General skin exam: no rashes or lesions noted Neuro General: patient oriented x3 and no focal motor deficits Cranial nerves: Yes CN's II-XII intact bilaterally Extrem General: Yes normal to inspection, Yes no clubbing, cyanosis or edema and Yes no calf tenderness Psych Appearance: grossly normal and well kempt Speech and movement: Normal speech and movement present Office Procedures Spirometry Testing Spirometry Comments: Spirometry done in the office, Dr. Ordaz has the results results scanned to his chart. Test performed by Ladan Neri RRT 16417- Spirometry Results Reviewed Results Reviewed: SPIROMETRY PERFORMED IN THE OFFICE TODAY THE RESULTS ARE ESSENTIALLY NORMAL AND THERE IS NO OBSTRUCTIVE COMPONENT AT THIS TIME. THUS INDICATING THAT THE CURRENT TREATMENT IS KEEPING HIS RESPIRATORY STATUS IN CONTROL. Assessment & Plan Assessment & Plan (1) Asthma with COPD: Comment: Intermittent cough and mild shortness of breath on exertion secondary to COPD due to his previous smoking. In addition he has component of bronchial asthma. .Results of PFT . Are again reviewed . SPIROMETRY TODAY THE RESULTS ARE MUCH IMPROVED. All his flow volumes are in normal range. Code(s): J44.9 - Chronic obstructive pulmonary disease, unspecified Category: Medical Plan: The findings of his previous PFT and spirometry today are reviewed with him. He is reassured that his the obstructive airway disorder is under good control. Advised to continue using Symbicort 160-4.52 puffs b.i.d.. And albuterol HFA 2 puffs Q 6 hours only p.r.n. (2) Dyspnea: Comment: IN SPITE OF APPROPRIATE TREATMENT, HE CONTINUES TO HAVE DIFFICULTY IN TAKING A DEEP BREATH, AND HE ALSO COMPLAINS OF GETTING SHORT OF BREATH MORE EASILY THAN BEFORE. IT MAY BE PARTLY BECAUSE HE HAS PUT ON 8 LB OF WEIGHT. Dyspnea on exertion is also partly contributed by his coronary artery disease. Code(s): R06.00 - Dyspnea, unspecified Category: Medical Plan: Patient explained about these contributing factors for his dyspnea on exertion, and occasional bouts of bronchospasm. He is encouraged to lose more weight, he has to walk equivalent of about 2 miles every day. He should reduce the intake of carbohydrates. Do gentle deep breathing exercises 2 or 3 times a day. Orders: Orders AMB Spirometry Testing Today J44.9 - Chronic obstructive pulmonary disease, unspecified Coding Level of Care Code Est Pt Level 3 (23827) Diagnoses Asthma with COPD J44.9 Dyspnea R06.00 CPT Codes Spirometry - CPT: 24039- Spirometry ([id number])
--- OUTSIDE RECORDS SUMMARY | 2025-07-12 10:24 | XMS_ITS | Clinical Summary ---
Author Organization [facility] Address [address] [place] [address] Care Team Providers Care Bi Application Developer Name Role Phone Avani Hill ROXY Primary Care Provider [phone] Source Comments PLEASE NOTE, if this patient [...] Plan of Treatment Not on file Insurance [place] [facility] SAFETY NET DENTAL Care Teams Bi Application Developer Relationship Specialty Start Date End Date Avani Hill DMD [address] [facility] [place] [address] PCP - General 01/25/21
== END 2025-07-12 11:02 | disposition home or self-care (01) ==
LOC: HO.HPS 09:44
PROVIDERS: PCP Internal Medicine; Visit Provider Internal Medicine
DX: J44.9 Chronic obstructive pulmonary disease, unspecified (principal); R06.00 Dyspnea, unspecified
CPT/HCPCS: 94010; 99213

== ENCOUNTER → 2025-07-12 09:44 | Outpatient (BNVA) | payer OTHER, SELFPAY | PROVIDERS: PCP Internal Medicine; Visit Provider Internal Medicine | DX: J44.89 Other specified chronic obstructive pulmonary disease (principal); R06.00 Dyspnea, unspecified | CPT/HCPCS: 94010; 99212 ==

== ENCOUNTER 2025-09-07 08:53 | Outpatient (REF) | payer OTHER, SELFPAY ==
--- OUTSIDE RECORDS SUMMARY | 2025-09-07 09:37 | XMS_ITS | Clinical Summary ---
Author Organization [facility] Address [address] [place] [address] Care Team Providers Care Museum Exhibit Technician Name Role Phone Avani Hill ROXY Primary Care Provider [phone] Source Comments PLEASE NOTE, if this patient [...] Plan of Treatment Not on file Insurance [place] MED[place] [facility] SAFETY NET DENTAL Care Teams Museum Exhibit Technician Relationship Specialty Start Date End Date Avani Hill DMD [address] [facility] [place] [address] PCP - General 01/25/21
[2025-09-07 09:48] LABS: Hematocrit 39.9 % (42.0-52.0); Hemoglobin 12.8 g/dl (14.0-18.0); Mean Corpuscular HGB Conc 32.1 g/dl (31.0-36.0); Mean Corpuscular Hemoglobin 29.0 pg (27.0-33.0); Mean Corpuscular Volume 90.3 fL (80.0-98.0); NRBC Abs Auto 0.000 X10*3/uL (0.0-0.012); NRBC Pct Auto 0.0 /100WBC (0.0-0.2); Platelet Count 256 X10*3/uL (160-400); Red Blood Count 4.42 X10*6/uL (4.60-5.80); White Blood Count 8.2 X10*3/uL (4.8-10.8)
[2025-09-07 10:13] LABS: Anion Gap 11 (12-20); Blood Urea Nitrogen 15 mg/dL (9-16); Calcium 9.1 mg/dL (8.4-10.2); Carbon Dioxide 28 mmol/L (22-29); Chloride 105 mmol/L (96-108); Cholesterol 100 mg/dL (<200); Estimated Glomerular Filt Rate > 60; HDL Cholesterol 36 mg/dL (>40); Potassium 4.3 mmol/L (3.3-5.1); Sodium 140 mmol/L (135-145); Triglycerides 101 mg/dL (<150)
== END 2025-09-07 08:54 | disposition home or self-care (01) ==
LOC: HO.LAB 08:53
PROVIDERS: Absent Provider Urology; PCP Internal Medicine; Visit Provider Internal Medicine Cardiovascular Disease
DX: E29.1 Testicular hypofunction (principal); I25.10 Atherosclerotic heart disease of native coronary artery without angina pectoris; I10 Essential (primary) hypertension
CPT/HCPCS: 36415; 80048; 80061; 83036; 84403; 84443; 85027

== ENCOUNTER 2025-09-11 12:47 | Outpatient (AMB) | payer OTHER, SELFPAY ==
--- NOTE | 2025-09-11 13:00 | MHC.OFFVIS ---
Vital Signs 09/11/25 13:01 Height 5 ft 10 in Weight 215 lb 14.958 oz BMI 31.0 BP 130/65 Blood Pressure Location Lt brachial Position Sitting Pulse 65 Intake Visit Reasons: follow up Intake Note: Patient in office today in follow up of constipation. CC: Patient c/o epigastric pain sometimes. Rigger Third Required: No Accompanied by: Self / Same As Patient Allergies No Known Allergies (No Known Allergies*) Allergy (Verified 09/11/25 13:10) HPI HPI follow up: Details: 60 yr old m here for f/u RECAP: He had ongoing pain around the anal area he had sporadic improvements but keeps recurring he eventually got rectiv also been using steroid cream stool is variable, sometimes can be hard, taking fiber supplement BID he has mild abdominal pain, slowly improving he eats barley, wheat bread, drinks water daily colonoscopy-- EGD 11/15/2020--- gastritis, inflammed hemorrhoids, INTERIM: he has good results with metamucil, takes daily he has occasional epigastric pains, on and off daily not associated with food or lifting no nausea or vomiting no rectal bleeding appetite is good overall EXAM: GENERAL: The patient is well developed and nontoxic. VITAL SIGNS:see workflow HEENT: Nonicteric sclerae, PERRLA, EOMI. Oropharynx clear. Moist mucous membranes. Conjunctivae appear well perfused. No thyroid mass. CHEST: Chest wall is nontender. HEART: Regular rate and rhythm without murmurs. LUNGS: Clear to auscultation bilaterally. ABDOMEN: Soft, positive bowel sounds, point tenderness epigastrium worse with head lift, no organomegaly.no flank tenderness SKIN: No rash, no excessive bruising, petechiae, or purpura. NEUROLOGIC: Cranial nerves II-XII intact without motor/sensory deficit. A/P: 1/ constipation, hx of anal fissure, better with metamucil 2/ suspected myofascial pain epigastrium PLAN: 1/ cont with high fiber diet--can take fiber gummies or fiber wafers and increase fluid intake --add trulance 2/ offered pain mx apptm, he declines, he will consider capsacin or TCA PFSH Medical History Dyspnea Onychomycosis Asthma with COPD COPD (chronic obstructive pulmonary disease) Acute bronchitis and bronchiolitis Dyslipidemia Chronic pain syndrome Knee osteoarthritis Anal pain Arthritis GERD (gastroesophageal reflux disease) Surgical History History of cardiac cath Hx of esophagogastroduodenoscopy Hx of inguinal hernia repair H/O colonoscopy (~11/14/20) Family History Mother No problems noted. Father Heart attack Social History Household Members: Spouse and Children Housing: House Alcohol intake: former Patient Tobacco Use Status: Former Tobacco user Years Smoked: 15 +/- e-Cigarette/Vaping Use: Never Used Second Hand Smoke Exposure: Yes service: No Current occupational status: unemployed Cognitive needs: No Hearing needs: No Vision needs: No Physical Exam Vital Signs: Last Vital Signs Pulse 65 09/11/25 13:01 BP 130/65 09/11/25 13:01 BMI result Body Mass Index 31.0 Assessment & Plan Assessment & Plan (1) Epigastric abdominal pain: Code(s): R10.13 - Epigastric pain Category: Medical Plan: as above Medications: New capsaicin 0.1% do not wash area for at least 30 min after application 1 appl topical BID 56.6 grams 0RF hydrocortisone-pramoxine 1-1 % (Proctofoam HC) 1 appl DE DAILY 10 grams 0RF Coding Level of Care Code Est Pt Level 4 (50523) Diagnoses Epigastric abdominal pain R10.13
[2025-09-11 13:01] VITALS: BP 130/65; PULSE 65; BMI 31.0
--- OUTSIDE RECORDS SUMMARY | 2025-09-11 16:13 | XMS_ITS | Clinical Summary ---
Author Organization [facility] Address [address] [place] [address] Care Team Providers Care Ferryboat Deckhand Name Role Phone Avani Hill ROXY Primary Care Provider [phone] Source Comments PLEASE NOTE, if this patient [...] Plan of Treatment Not on file Insurance [place] MEDICAID DENTAL [facility] SAFETY NET DENTAL Care Teams Ferryboat Deckhand Relationship Specialty Start Date End Date Avani Hill DMD [address] [facility] [place] [address] PCP - General 01/25/21
== END 2025-09-11 13:41 | disposition home or self-care (01) ==
LOC: HO.HGI 12:48
PROVIDERS: PCP Internal Medicine; Visit Provider Internal Medicine Gastroenterology
DX: R10.13 Epigastric pain (principal)
CPT/HCPCS: 99214

== ENCOUNTER → 2025-09-11 12:47 | Outpatient (BNVA) | payer OTHER, SELFPAY | PROVIDERS: PCP Internal Medicine; Visit Provider Internal Medicine Gastroenterology | DX: R10.13 Epigastric pain (principal) | CPT/HCPCS: 99212 ==

== ENCOUNTER 2025-09-13 15:01 | Outpatient (AMB) | payer OTHER, SELFPAY ==
[2025-09-13 15:04] VITALS: BP 120/64; PULSE 71; BMI 30.8
--- NOTE | 2025-09-13 15:04 | A.OFFVIS_ITS ---
Vital Signs 09/13/25 15:04 Height 5 ft 10 in Weight 215 lb BMI 30.8 BP 120/64 Blood Pressure Location Lt brachial Position Sitting Pulse 71 Pulse Source Pulse Oximeter Intake Visit Reasons: 4mth f/up Intake Note: 4 mth f/up Copy Center Associate Required: No Accompanied by: Self / Same As Patient Allergies No Known Allergies (No Known Allergies*) Allergy (Verified 09/11/25 13:10) Medication List - Last Reconciled 09/13/25 by Carlos Raymundo MD albuterol sulfate 90 mcg/actuation (Ventolin HFA) 2 puffs PO Q6-8H PRN amlodipine 5 mg PO DAILY aspirin 81 mg PO DAILY atorvastatin 80 mg PO DAILY blood sugar diagnostic (FreeStyle Lite Strips) Once a day blood-glucose meter (FreeStyle [place] Lite kit) Check Blood Sugar budesonide-formoterol 160-4.5 mcg/actuation (Symbicort) 2 puffs PO BID 30 days capsaicin 0.1% 1 appl topical BID clopidogrel 75 mg PO DAILY diclofenac sodium 1% 2 grams topical QID hydrochlorothiazide 12.5 mg PO DAILY hydrocortisone-pramoxine 1-1 % (Proctofoam HC) 1 appl NM DAILY ibuprofen 800 mg PO DAILY PRN lancets (FreeStyle Lancets) bid letrozole 2.5 mg PO DAILY 30 days loratadine (Allergy Relief (loratadine)) 10 mg PO DAILY metformin 500 mg PO BID 90 days omeprazole 40 mg PO DAILY prednisone 5 mg PO BID PRN psyllium seed (sugar) (Metamucil (sugar) oral powder) 1 tbsp PO BID sildenafil 100 mg PO ONCE PRN 30 days testosterone 2 pumps topical DAILY 30 days triamcinolone acetonide 0.1% 1 appl topical DAILY HPI Comments Details: 60-year-old gentleman who is here for follow-up. He has history of hypertension and has been experiencing chest discomfort. He is describing how pressure-like feeling on the left side of chest which happens randomly. He feels very tired after this and has to lay down. His symptoms has been happening for some time and he is getting them quite frequently. Previously underwent stress testing where he had a hypertensive response to exercise without any significant symptoms. He was started on amlodipine hydrochlorothiazide his blood pressure is improved since. Continues to get chest pains on the left side which are quite concerning. His recently diagnosed with hyperlipidemia as well as diabetes. His hemoglobin A1c is 8. After discussion he was taken for cardiac catheterization. Cardiac catheterization showed multivessel disease including severe LAD as well as 70% circumflex and distal right coronary artery stenosis. We discussed about bypass surgery versus PCI and patient opted for PCI. We treated the LAD with a drug-eluting stent. 09/07/23: He returns for follow-up today. Unfortunately had a fall recently breaking ribs on the right side as well as lower back injury. He is recovering from that. He has been using ibuprofen up to b.i.d.. He has some dyspnea with activities but denying any significant chest discomfort like he was getting before LAD PCI. Taking medications regularly. Blood pressure control is good. 01/11/24: He returns for follow-up. He has been doing well. Blood pressure is elevated. He has been taking medications regularly. He also has been quite compliant with salt intake and exercising regularly. He is taking sumatriptan off and on for headaches. I have advised him not to take sumatriptan anymore. 05/11/2024: He is here for follow-up. He was getting some GI upset with the amlodipine 10 mg at bedtime and he has decrease the dose to 5 mg daily which has improved his symptoms. He also has been experiencing some arm discomfort and chest discomfort when he is under stress. He recently lost his younger brother. He also had some injury to his leg and is not as active as before. He is saying that walking around he does not get any symptoms but when he is under emotional stress he feels uneasy feeling in his chest and arm discomfort. As mentioned above he has known history of coronary disease with previous LAD PCI and had residual disease in circumflex and right coronary artery. 08/22/2024: He is here for follow-up. Blood pressure is well controlled. EKGs normal. He is saying that he has been experiencing some arm discomfort off and on. He thinks that this is because he felt funny. He also had episode of shortness of breath while he was at home and he had to open the windows to breathe better. He said everyone else was fine and I just felt like that. He is not endorsing the classic chest discomfort he was getting before but has significant new symptoms. He has residual circumflex and RCA stenosis in the past. Blood pressure as mentioned is well controlled. 04/26/2025: He is here for follow-up. Denying chest discomfort. Taking medications regularly. No bleeding. He has been concern is dyspnea with activities and is unable to take a deep breath. He is getting workup with pulmonology. 09/13/2025: He returns for follow-up. He has been doing well. No chest pain or shortness of breath. Trying to cut carbohydrates from his diet and overall glycemic control as well as lipid panel looks great. Hemoglobin A1c is 5. PFSH Medical History Dyspnea Onychomycosis Asthma with COPD COPD (chronic obstructive pulmonary disease) Acute bronchitis and bronchiolitis Dyslipidemia Chronic pain syndrome Knee osteoarthritis Anal pain Arthritis GERD (gastroesophageal reflux disease) Surgical History History of cardiac cath Hx of esophagogastroduodenoscopy Hx of inguinal hernia repair H/O colonoscopy (~11/14/20) Family History Mother No problems noted. Father Heart attack Social History Household Members: Spouse and Children Housing: House Alcohol intake: former Patient Tobacco Use Status: Former Tobacco user Years Smoked: 15 +/- e-Cigarette/Vaping Use: Never Used Second Hand Smoke Exposure: Yes service: No Current occupational status: unemployed Cognitive needs: No Hearing needs: No Vision needs: No Review of Systems Const Denies chills, Denies fatigue, Denies fever(s), Denies frequent falls, Denies weakness, Denies weight gain and Denies weight loss ENT Denies dizziness Card Denies chest pain, Denies leg edema, Denies lightheadedness, Denies palpitations, Denies dyspnea and Denies dyspnea on exertion Resp Denies cough, Denies dyspnea and Denies dyspnea on exertion GI Denies hematochezia Musc Denies abnormal gait, Denies muscle weakness, Denies numbness, Denies radiating pain into limb and Denies tingling Neuro Denies abnormal gait, Denies dizziness, Denies frequent falls, Denies numbness, Denies tingling and Denies weakness Endo Denies fatigue and Denies palpitations Physical Exam Vital Signs: Last Vital Signs Pulse 71 09/13/25 15:04 BP 120/64 09/13/25 15:04 BMI result Body Mass Index 30.8 GENERAL APPEARANCE: in no acute distress, pleasant. NECK: no carotid bruit, no jugular venous distention. SKIN: no suspicious lesions, warm and dry. HEART: no murmurs, regular rate and rhythm. LUNGS: clear to auscultation bilaterally. ABDOMEN: soft, nontender. EXTREMITIES: no edema. PERIPHERAL PULSES: equal. NEUROLOGIC: No gross deficits, AAO X 3 Assessment & Plan Assessment & Plan (1) Essential hypertension: Code(s): I10 - Essential (primary) hypertension Category: Medical (2) CAD (coronary artery disease): Code(s): I25.10 - Atherosclerotic heart disease of [place] coronary artery without angina pectoris Category: Medical Plan [age] year gentleman who is here for follow-up. He has a known history of coronary artery disease with previous PCI. Blood pressure is well controlled. He does not have any anginal symptoms currently. Take medications regularly. Blood pressure well controlled. Continue same medications at this stage. Follow up with us in 4 months. Thank you for allowing me to participate in the care of your patient. Please feel free to contact me if you have any questions. Coding Level of Care Code Est Pt Level 4 (48171) Diagnoses Essential hypertension I10 CAD (coronary artery disease) I25.10
--- OUTSIDE RECORDS SUMMARY | 2025-09-13 19:29 | XMS_ITS | Clinical Summary ---
Author Organization [facility] Address [address] [place] [address] Care Team Providers Care Ballet Master/Mistress Name Role Phone Avani Hill ROXY Primary Care Provider [phone] Source Comments PLEASE NOTE, if this patient [...] Not on file Insurance [place] D[place] [facility] SAFETY NET DENTAL Care Teams Ballet Master/Mistress Relationship Specialty Start Date End Date Avani Hill DMD [address] [facility] [place] [address] PCP - General 01/25/21
== END 2025-09-13 15:27 | disposition home or self-care (01) ==
LOC: HO.HCS 15:01
PROVIDERS: PCP Internal Medicine; Visit Provider Internal Medicine Cardiovascular Disease
DX: I10 Essential (primary) hypertension (principal); I25.10 Atherosclerotic heart disease of native coronary artery without angina pectoris
CPT/HCPCS: 99214

== ENCOUNTER → 2025-09-13 15:01 | Outpatient (BNVA) | payer OTHER, SELFPAY | PROVIDERS: PCP Internal Medicine; Visit Provider Internal Medicine Cardiovascular Disease | DX: I10 Essential (primary) hypertension (principal); I25.10 Atherosclerotic heart disease of native coronary artery without angina pectoris | CPT/HCPCS: 99212 ==